=== PATIENT | male | born 1935 | race Caucasian/White ===

== ENCOUNTER 2020-02-03 11:20 | Outpatient (REF) | payer MEDICARE, SELFPAY | END 2020-02-03 11:21 | disposition home or self-care (01) | LOC: HO.LAB 11:20 | PROVIDERS: Visit Provider Internal Medicine | DX: Z20.828 Contact with and (suspected) exposure to other viral communicable diseases (principal) | CPT/HCPCS: C9803; U0003 ==

== ENCOUNTER 2020-09-24 06:06 | Outpatient (REF) | payer MEDICARE, OTHER, SELFPAY ==
[2020-09-24 07:37] LABS: MANUAL DIFF FLAG NO
[2020-09-24 07:40] LABS: Basophils Absolute Auto 0.1 X10*3/uL (0.0-0.2); Basophils Percent Auto 1.2 % (0-2); Eosinophils Absolute Auto 0.4 X10*3/uL (0.0-0.4); Eosinophils Percent Auto 7.3 % (0-4); Hematocrit 37.3 % (42-52); Hemoglobin 12.3 g/dl (14.0-18.0); Lymphocytes Absolute Auto 1.9 X10*3/uL (1.2-4.9); Lymphocytes Percent Auto 36.7 % (20-40); Mean Corpuscular Hemoglobin 32.4 pg (27.0-33.0); Mean Corpuscular Volume 98.2 fL (80-98); Mean Platelet Volume 10.9 fL (9.4-12.4); Monocytes Absolute Auto 0.7 X10*3/uL (0.1-1.2); Monocytes Percent Auto 12.8 % (2-11); Neutrophils Absolute Auto 2.1 X10*3/uL (2.0-8.3); Platelet Count 220 X10*3/uL (160-400); Red Cell Distribution Width 13.4 % (11.0-16.0); White Blood Count 5.1 X10*3/uL (4.8-10.8)
[2020-09-24 08:04] LABS: Alanine Aminotransferase 16 U/L (0-40); Albumin Level 3.8 g/dL (3.5-5.0); Alkaline Phosphatase 77 U/L (39-117); Anion Gap 12 (12-20); Aspartate Amino Transferase 27 U/L (5-37); Bilirubin Total 0.4 mg/dL (0.0-1.0); Blood Urea Nitrogen 20 mg/dL (9-16); Calcium 9.6 mg/dL (8.4-10.2); Carbon Dioxide 26 mmol/L (22-29); Chloride 109 mmol/L (96-108); Cholesterol 186 mg/dL; Estimated Glomerular Filt Rate 43; Glucose Random 91 mg/dL (60-115); HDL Cholesterol 53 mg/dL; LDL Cholesterol Calculated 123 mg/dl; Lipase 24 U/L (8-78); Potassium 4.6 mmol/L (3.3-5.1); Sodium 142 mmol/L (135-145); Total Protein 6.8 g/dL (6.5-8.0); Triglycerides 50 mg/dL
[2020-09-24 08:24] LABS: Glucose Urine UA NEG (NEG); Leukocyte Esterase Urine NEG (NEG); Nitrite Urine NEG (NEG); Specific Gravity - Urine 1.015 (1.005-1.025); Urine Blood NEG (NEG); Urine Ketones NEG (NEG); Urine Protein NEG (NEG-TRACE)
[2020-09-24 08:28] LABS: Prostate Specific Antigen 6.98 ng/mL (<0.05-4.0)
[2020-09-24 08:28] LABS: Appearance Urine CLEAR; Color Urine YELLOW
== END 2020-09-24 06:07 | disposition home or self-care (01) ==
LOC: HO.LAB 06:06
PROVIDERS: PCP Internal Medicine; Visit Provider Internal Medicine
DX: Z12.5 Encounter for screening for malignant neoplasm of prostate (principal); K21.9 Gastro-esophageal reflux disease without esophagitis; R97.20 Elevated prostate specific antigen [PSA]; M06.9 Rheumatoid arthritis, unspecified; K22.70 Barrett's esophagus without dysplasia
CPT/HCPCS: 36415; 80053; 80061; 81003; 83690; 84153; 85025

== ENCOUNTER 2020-10-28 10:39 | Outpatient (REF) | payer MEDICARE, OTHER, SELFPAY ==
[2020-10-28 15:26] LABS: Prostate Specific Antigen 6.78 ng/mL (<0.05-4.0)
== END 2020-10-28 10:40 | disposition home or self-care (01) ==
LOC: HO.10HDL 10:39
PROVIDERS: Visit Provider Urology
DX: Z12.5 Encounter for screening for malignant neoplasm of prostate (principal); C61 Malignant neoplasm of prostate
CPT/HCPCS: 36415; 84153

== ENCOUNTER → 2020-11-05 11:33 | Outpatient (BNVA) | payer MEDICARE, OTHER, SELFPAY | PROVIDERS: PCP Internal Medicine; Referring Provider Internal Medicine; Visit Provider Urology | CPT/HCPCS: Q3014 ==

== ENCOUNTER → 2020-12-17 09:24 | Outpatient (BNVA) | payer MEDICARE, OTHER, SELFPAY | PROVIDERS: PCP Internal Medicine; Visit Provider Physician Assistant | DX: M75.51 Bursitis of right shoulder (principal) | CPT/HCPCS: 20610; 99212; J1040 ==

== ENCOUNTER 2021-01-28 10:19 | Outpatient (REF) | payer MEDICARE, OTHER, SELFPAY ==
[2021-01-28 14:34] LABS: PSA,Total (Free>4and<10) 8.31 ng/mL (0.00-4.00)
== END 2021-01-28 10:20 | disposition home or self-care (01) ==
LOC: HO.10HDL 10:19
PROVIDERS: Visit Provider Urology
DX: Z13.89 Encounter for screening for other disorder (principal)
CPT/HCPCS: 36415; 84153; 84154

== ENCOUNTER → 2021-02-04 11:31 | Outpatient (BNVA) | payer MEDICARE, OTHER, SELFPAY | PROVIDERS: PCP Internal Medicine; Visit Provider Urology | DX: C61 Malignant neoplasm of prostate (principal) | CPT/HCPCS: 99212 ==

== ENCOUNTER → 2021-03-24 10:20 | Outpatient (BNVA) | payer MEDICARE, OTHER, SELFPAY | PROVIDERS: PCP Internal Medicine; Visit Provider Physician Assistant | DX: M75.52 Bursitis of left shoulder (principal) | CPT/HCPCS: 20610; 99212; J1020 ==

== ENCOUNTER 2021-08-15 09:03 | Outpatient (REF) | payer MEDICARE, OTHER, SELFPAY ==
[2021-08-15 11:19] LABS: PSA,Total (Free>4and<10) 1.63 ng/mL (0.00-4.00)
== END 2021-08-15 09:04 | disposition home or self-care (01) ==
LOC: HO.10HDL 09:03
PROVIDERS: Visit Provider Urology
DX: Z12.5 Encounter for screening for malignant neoplasm of prostate (principal); C61 Malignant neoplasm of prostate; N13.8 Other obstructive and reflux uropathy; N40.1 Benign prostatic hyperplasia with lower urinary tract symptoms
CPT/HCPCS: 36415; 84153

== ENCOUNTER → 2021-08-23 13:15 | Outpatient (BNVA) | payer MEDICARE, OTHER, SELFPAY | PROVIDERS: PCP Internal Medicine; Visit Provider Urology | DX: C61 Malignant neoplasm of prostate (principal); Z79.899 Other long term (current) drug therapy | CPT/HCPCS: 99212 ==

== ENCOUNTER → 2021-09-26 12:18 | Outpatient (BNVA) | payer MEDICARE, OTHER, SELFPAY | PROVIDERS: PCP Internal Medicine; Visit Provider Physician Assistant | DX: M75.52 Bursitis of left shoulder (principal) | CPT/HCPCS: 20610; 99212; J1020 ==

== ENCOUNTER 2021-12-02 07:46 | Outpatient (REF) | payer MEDICARE, OTHER, SELFPAY ==
[2021-12-02 10:31] LABS: MANUAL DIFF FLAG NO
[2021-12-02 10:37] LABS: Basophils Absolute Auto 0.1 X10*3/uL (0.0-0.2); Basophils Percent Auto 1.6 % (0-2); Eosinophils Absolute Auto 0.3 X10*3/uL (0.0-0.4); Eosinophils Percent Auto 6.6 % (0-4); Hematocrit 35.9 % (42.0-52.0); Hemoglobin 11.8 g/dl (14.0-18.0); Lymphocytes Absolute Auto 1.3 X10*3/uL (1.2-4.9); Lymphocytes Percent Auto 29.7 % (20-40); Mean Corpuscular HGB Conc 32.9 g/dl (31.0-36.0); Mean Corpuscular Hemoglobin 31.8 pg (27.0-33.0); Mean Corpuscular Volume 96.8 fL (80.0-98.0); Monocytes Absolute Auto 0.5 X10*3/uL (0.1-1.2); Monocytes Percent Auto 12.2 % (2-11); Neutrophils Absolute Auto 2.1 x10*3/uL (2.0-8.3); Neutrophils Percent Auto 49.9 % (45-73); Platelet Count 203 X10*3/uL (160-400); Red Blood Count 3.71 X10*6/uL (4.60-5.80); Red Cell Distribution Width 13.7 % (11.0-16.0); White Blood Count 4.3 X10*3/uL (4.8-10.8)
[2021-12-02 10:55] LABS: Alanine Aminotransferase 18 U/L (0-40); Albumin Level 3.5 g/dL (3.5-5.0); Alkaline Phosphatase 66 U/L (39-117); Anion Gap 12 (12-20); Aspartate Amino Transferase 29 U/L (5-37); Bilirubin Total 0.3 mg/dL (0.0-1.0); Blood Urea Nitrogen 20 mg/dL (9-16); Calcium 8.9 mg/dL (8.4-10.2); Carbon Dioxide 25 mmol/L (22-29); Chloride 108 mmol/L (96-108); Cholesterol 168 mg/dL; Estimated Glomerular Filt Rate 46; Glucose Fasting 88 mg/dL (60-99); HDL Cholesterol 56 mg/dL; LDL Cholesterol Calculated 103 mg/dl; Potassium 4.2 mmol/L (3.3-5.1); Sodium 141 mmol/L (135-145); Total Protein 6.3 g/dL (6.5-8.0); Triglycerides 49 mg/dL
[2021-12-02 11:17] LABS: Free T4 (Free Thyroxine) 1.02 ng/dL (0.71-1.85); Prostate Specific Antigen Scr 2.82 ng/mL (<0.05-4.0); Thyroid Stimulating Hormone 2.28 uIU/mL (0.32-4.0)
== END 2021-12-02 07:47 | disposition home or self-care (01) ==
LOC: HO.10HDL 07:46
PROVIDERS: Visit Provider Internal Medicine
DX: Z12.5 Encounter for screening for malignant neoplasm of prostate (principal); I48.91 Unspecified atrial fibrillation; R60.0 Localized edema; I10 Essential (primary) hypertension; M06.9 Rheumatoid arthritis, unspecified
CPT/HCPCS: 36415; 80053; 80061; 84153; 84439; 84443; 85025

== ENCOUNTER → 2021-12-13 14:42 | Outpatient (BNVA) | payer MEDICARE, OTHER, SELFPAY | PROVIDERS: PCP Internal Medicine; Referring Provider Internal Medicine; Visit Provider Internal Medicine | DX: I48.19 Other persistent atrial fibrillation (principal); M79.89 Other specified soft tissue disorders | CPT/HCPCS: 93005; 99202 ==

== ENCOUNTER → 2021-12-30 12:29 | Outpatient (REF) | payer MEDICARE, OTHER, SELFPAY ==
--- NOTE | 2021-12-30 12:34 | CA_ITS ---
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 The visually estimated ejection fraction is between 60-65%. - The left atrium is moderately dilated. - There is mild calcification of the aortic valve. - There is mild mitral annular calcification. Findings Procedure Information The patient declines contrast. Left Ventricle Normal left ventricular cavity size. There is normal left ventricular wall thickness. The left ventricular systolic function is normal. The visually estimated ejection fraction is between 60-65%. There is no evidence of regional wall motion abnormalities. Diastolic function is indeterminate on the basis of available data. Right Ventricle Normal right ventricular cavity size and systolic function. Atria The left atrium is moderately dilated. The right atrium is normal in size. Aortic Valve There is mild calcification of the aortic valve. There is no aortic valve stenosis. There is no aortic valve regurgitation. Mitral Valve There is mild mitral annular calcification. There is trace mitral valve regurgitation. There is no mitral valve stenosis. Pulmonic Valve The pulmonic valve is likely normal. Tricuspid Valve There is mild tricuspid valve regurgitation. There is no evidence of pulmonary hypertension. Great Vessels The asc aorta is normal in size. Venous The inferior vena cava is mildly dilated and collapses greater than 50% with inspiration. Pericardium/Pleural There is no evidence of pericardial effusion. Prior Study Comparison No significant change compared to prior study dated: 08/16/2016. Measurements 2D Linear Measurements IVSd: 0.88 0.6-0.9/0.6-1.0 cm LVIDd: 4.36 3.9-5.3/4.2-5.9 cm LVIDd Index: 2.26 2.4-3.2/2.2-3.1 cm/m2 LVIDs: 2.90 2.0-3.6 cm LVPWd: 0.94 0.7-1.1 cm LA Diam: 4.00 2.7-3.8/3.0-4.0 cm LAIDs Index: 2.07 1.5-2.3 cm/m2 LV Mass: 158.92 67-162/88-224 g LV Mass Index: 82.34 43-95/49-115 g/m2 LVOT Diam: 2.10 3.0+(-)1.3 cm 2D Systolic Function EF 4C: 57.40 >55% EF 2C: 57.30 >55% EF BiP: 56.20 >55% Mitral Valve MV Pk E: 0.94 MV Decel Time: 246.00 E'Lateral: 9.46 E'Medial: 10.70 E/E' Med: 8.80 E/E' Lat: 9.90 PHT: 72.00 MVA PHT: 3.06 Decel Vernon: 3.81 Aortic Valve AoV Pk Vinayak: 1.39 AoV Mn Vinayak: 0.95 AoV VTI: 0.25 AoV Pk Grad: 8.00 Aov Mn Grad: 4.00 PIA Cont.VTI: 2.64 LVOT LVOT Pk Vinayak: 0.93 LVOT Mn Vinayak: 0.59 LVOT VTI: 0.19 LVOT Pk Grad: 3.00 LVOT Mn Grad: 2.00 LVOT Diam: 2.10 LVOT Area: 3.46 Diastolic Function MV Pk E: 0.94 E'Medial: 10.70 E/E' Med: 8.80 E' Laterial: 9.46 E/E' Lat: 9.90 Right Ventricle TAPSE (mm): 17.40 TVS' Vinayak: 10.20 Tricuspid Valve TR Pk Vinayak: 2.39 TR Pk Grad: 23.00 RA Press: 8.00 RVSP: 31.00 Great Vessels Aorta Sinus of Valsalva: 3.35 2.0-3.[address] [place]: 2.80 1.7-3.4 cm Ao Asc: 3.40 2.1-3.4 cm Updated in Other Vendor System with Status of Final Elia Nelson MD electronically signed on 12/31/2021 9:47:33 AM with status of Final
--- NOTE | 2021-12-30 12:35 | HM_ITS ---
Conclusion: 1. Patient was monitored for total period of 2 days and 19 hours 2. Baseline was atrial fibrillation with average heart of 80 beats per minute with adequate rate control 3. No significant bradycardia or pauses noted 4. Total of 1485 PVCs accounting for 0.46% total beats account for occasional PVCs 5. No patient reported events MTDD
== END ==
LOC: HO.CARD 12:29
PROVIDERS: PCP Internal Medicine; Visit Provider Internal Medicine
DX: I48.19 Other persistent atrial fibrillation (principal)
CPT/HCPCS: 93242; 93306

== ENCOUNTER 2022-01-23 09:14 | Day surgery (SDC) | payer MEDICARE, OTHER, SELFPAY ==
[2022-01-10 15:48] VITALS: BMI 24.3
--- NOTE | 2022-01-17 12:29 | HP_ITS ---
DATE OF SERVICE: 01/23/2022 HISTORY OF PRESENT ILLNESS: Patient is an 86-year-old male who is scheduled for cataract surgery January 23 and February [address] Dwyer. Patient feels well, has no complaints. PRESENT MEDICATIONS: Pepcid 20 mg twice a day, methotrexate 7.5 mg once a week, folic acid 1 mg a day, and Eliquis 2.5 mg p.o. b.i.d. PAST MEDICAL HISTORY: Significant for atrial fibrillation, chronic renal insufficiency. Hypertension. Gastroesophageal reflux disease. Whitaker's esophagus. Rheumatoid arthritis. Intestinal polyps. 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 Skin cancer in the past, osteoarthritis of the hip, back pain, BPH, varicose veins. FAMILY HISTORY: Mother at 84. Father of 101. He has no siblings. SOCIAL HISTORY: He is and has 3 children. REVIEW OF SYSTEMS: No fevers or sweats. Some very mild weight loss 3 pounds recently. No chest pains. Some peripheral edema. No shortness of breath or wheezing. No abdominal pain or heartburn. Some nocturia, osteoarthritis of the hands, rheumatoid arthritis. Appetite has been somewhat diminished lately. Sleeping is disrupted. He recently lost his last January. PHYSICAL EXAMINATION: GENERAL: He is awake and alert, in no distress. VITAL SIGNS: Pulse is 85, respiratory rate is 12, blood pressure is 140/80, oxygen saturation 99% on room air. Weight is 169. HEENT: Pupils equal. TMs clear. Pharynx clear. HEART: Sounds irregularly irregular with atrial fibrillation. LUNGS: Clear. ABDOMEN: Soft and nontender with positive bowel sounds. No HSM. No palpable hernia that I can detect on the right. EXTREMITIES: Some peripheral edema in the legs with venous stasis disease. He has a scab on the left calf from a laceration that is slowly healing. No bruising. NEUROLOGIC: He is awake and alert. ALLERGIES: NO REPORTED ALLERGIES TO MEDICINES. ASSESSMENT AND PLAN: He is medically stable for the proposed procedure. He has already been seen by Dr. Nelson for preop clearance. Also, he will continue the Eliquis and his other medications as directed. I will be available if there are any questions regarding his medical status. MD CYDNEY Arvizu/OBIE / [phone]
--- NOTE | 2022-01-18 09:10 | MHC.SHP ---
Pre-Procedural Eval Section A Date of Service: 01/18/22 The patient is an INPATIENT: No Changes since office visit: No Cold of Flu in the past 2 weeks, No New Medical Problems, No Changes in Medication and No Patient answered all questions The History & Physical has been completed within 30 days and I have reviewed it.: Yes Section B Chief Complaint: Age-related nuclear cataract, right eye Allergies: Allergies Allergy/AdvReac Type Severity Reaction Status Date / Time No Known Allergies Allergy Verified 12/13/21 15:11 Plan Diagnosis/Plan: Unchanged I have reviewed the history and physical and performed a pertinent physical examination on my patient. No changes have occurred unless specified.
[2022-01-23 12:53] VITALS: BP 185/76; PULSE 87; RESP 18; TEMP 36.1; O2SAT 96
[2022-01-23] MEDS: Ketorolac Tromethamine 0.5% Op 5 ML DROPS 1 DROP EYE-RIGHT ×3 (12:56→13:01)
[2022-01-23] MEDS: Phenylephrine HCL 2.5% Oph SoL 2 ML BOTTLE 1 DROP EYE-RIGHT ×3 (12:56→13:00)
[2022-01-23] MEDS: Cyclopentolate 1 % Ophth Sol 2 ML DRPBTL 1 DROP EYE-RIGHT ×3 (12:56→13:00)
[2022-01-23] MEDS: Tetracaine HCl/PF 0.5% Oph Sol 4 ML DROPS 1 DROP EYE-RIGHT (12:56)
[2022-01-23] MEDS: Tropicamide 1 % Ophth Sol 3 ML BTL 1 DROP EYE-RIGHT ×3 (12:56→13:01)
[2022-01-23] MEDS: Lactated Ringers 500 ML 20 ML IVCONT (13:04)
--- NOTE | 2022-01-23 13:29 | HO.ANESPROP2 ---
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 Mother No problems noted. Family history of problems with anesthesia: No Surgical History Surgical History H/O colonoscopy History of esophagogastroduodenoscopy (EGD) Hx of appendectomy History of Problems with Anesthesia: No Social History Social History Are you a primary pet care technician to a significant other at home: No Do you presently have visiting nurse or other home services: No Patient Tobacco Use Status: Former Tobacco user Quit Date: age 41 Tobacco use type: Cigarette Use of substances other than those prescribed or required for medical reasons: No Have you been hit, kicked, punched, or otherwise hurt by someone within the past year? If so, by whom?: No Are you DNR?: No Advance Directives: No (states HCP was but has passed-needs to redo HCP) Advance Directives Information Provided: Yes (as above noted) Advance Directives on File: No Recently lost weight without trying: No Eating poorly because of decreased appetite: No Nutrition Risks: Surgical patient >75years Poor oral hygiene: No (has upper full denture) Current occupational status: retired Current occupation: rt handed Meds Allergies Allergy/AdvReac Type Severity Reaction Status Date / Time No Known Allergies Allergy Verified 12/13/21 15:11 Home Medications Medication Instructions Recorded Confirmed Last Taken Type famotidine 20 mg tablet 20 mg PO BEDTIME 11/05/20 01/11/22 Unknown History methotrexate sodium 2.5 mg tablet 7.5 mg PO QWEEK 11/05/20 01/11/22 Unknown History diphenhydramine HCl 25 mg capsule 25 mg PO BEDTIME PRN Insomnia 01/10/22 01/11/22 Unknown History (Benadryl) melatonin 5 mg tablet 5 mg PO BEDTIME PRN Insomnia 01/10/22 01/11/22 Unknown History Exam Airway Mallampati Class: II TM Dist: >3cm Neck ROM: Full Denture: Upper and Lower Loose/Missing/Broken Teeth: Yes Heart: irreg irreg s1s2 Lungs: cta b/l Assessment and Plan Assessment Anesthesia Assessment: Anesthesia Plan Discussed and Chart Reviewed Final Anesthetic Review Family History of Problems with Anesthesia: No History of Problems with Anesthesia: No NPO: Yes ASA Class: III Final Preanesthetic Review: No Changes in Pt Med Stat, Meds/Allgs Chart Reviewed, Consent Obtained/Reviewed and Anes Risks/Benef Reviewed Patient Risk: Intermediate Procedure Risk: Intermediate Assessment/Block/Sedation in SS: Assess/Block/Sedation-SS Anesthetic Plan Anesthetic Plan: MAC: and Agree w/ Assess. and Plan Disposition: Standard PACU Documented by User: Jany Baugh [facility] Active Problems Active Problems: All Active Problems (Updated 01/10/22 @ 15:47 by Aleisha Mathews RN) Subacromial bursitis of right shoulder joint (Acute) Bursitis of left shoulder (Acute) Persistent atrial fibrillation (Acute) Leg swelling (Acute) Malignant neoplasm of prostate (Acute) Past Medical History Medical History Atrial fibrillation Elevated blood pressure reading Epidermal cyst Erectile dysfunction GERD (gastroesophageal reflux disease) Malignant neoplasm of prostate Nocturia Rheumatoid arthritis 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 Mother No problems noted. Surgical History Surgical History H/O colonoscopy History of esophagogastroduodenoscopy (EGD) Hx of appendectomy Social History Social History Are you a primary pet care technician to a significant other at home: No Do you presently have visiting nurse or other home services: No Patient Tobacco Use Status: Former Tobacco user Quit Date: age 41 Tobacco use type: Cigarette Use of substances other than those prescribed or required for medical reasons: No Have you been hit, kicked, punched, or otherwise hurt by someone within the past year? If so, by whom?: No Are you DNR?: No Advance Directives: No (states HCP was but has passed-needs to redo HCP) Advance Directives Information Provided: Yes (as above noted) Advance Directives on File: No Recently lost weight without trying: No Eating poorly because of decreased appetite: No Nutrition Risks: Surgical patient >75years Poor oral hygiene: No (has upper full denture) Current occupational status: retired Current occupation: rt handed Meds Allergies Allergy/AdvReac Type Severity Reaction Status Date / Time No Known Allergies Allergy Verified 12/13/21 15:11 Active Medications: Current Medications Lactated Ringer's (Lr) 500 mls @ 20 mls/hr IVCONT .Q24H ROBERTA Last Admin: 01/23/22 13:04 Dose: 20 mls/hr Povidone Iodine (Povidone Iodine 5 % Ophth Soln 30 Ml Bottle) 1 appl EYE-RIGHT PREOP PRN PRN Reason: Pre-Op Surgical Implant Prophy Home Medications Medication Instructions Recorded Confirmed Last Taken Type famotidine 20 mg tablet 20 mg PO BEDTIME 11/05/20 01/11/22 Unknown History methotrexate sodium 2.5 mg tablet 7.5 mg PO QWEEK 11/05/20 01/11/22 Unknown History diphenhydramine HCl 25 mg capsule 25 mg PO BEDTIME PRN Insomnia 01/10/22 01/11/22 Unknown History (Benadryl) melatonin 5 mg tablet 5 mg PO BEDTIME PRN Insomnia 01/10/22 01/11/22 Unknown History Exam Exam Date and Time: January 23, 2022 1329 Height,Weight and Vital Signs: Height 5 ft 10 in Weight 77.111 kg Last Vital Signs Temp 97 F 01/23/22 12:53 Pulse 87 01/23/22 12:53 Resp 18 01/23/22 12:53 BP 185/76 H 01/23/22 12:53 Pulse Ox 96 01/23/22 12:53 O2 Del Method 01/23/22 12:53
--- NOTE | 2022-01-23 14:01 | HO.PNOPHT ---
Ophthalmology Procedure Procedure Date of Service: 01/23/22 Ophthalmology Viscoelastic: Healon Duet Dual Pack Pro Ophthalmology Lenses: TECNIS [id number] (22.5) Procedure Notes: PREOPERATIVE DIAGNOSIS: Decreased visual acuity right eye secondary to cataract POSTOPERATIVE DIAGNOSIS: Same PROCEDURE: Right cataract extraction with intraocular lens insertion SURGEON: Peter Dwyer M.D. ANESTHESIA: Topical/MAC ESTIMATED BLOOD LOSS: None COMPLICATIONS: None After obtaining informed consent, the patient was brought to the operating room suite and placed in the supine position. After adequate sedation per anesthesia, topical drops of Tetracaine were given to the right eye. The eye was then prepped and draped in the usual sterile fashion. The operating room microscope was then positioned over the operative eye and a lid speculum placed. A paracentesis was created. Viscoelastic was then instilled into the anterior chamber. A three plane incision was then created temporally, utilizing a 2.85 mm keratome. Capsulotomy forceps were then utilized to create a circular tear capsulotomy. Hydrodissection and hydrodelineation were carried out until adequate mobilization of the nucleus occurred. Phacoemulsification was then utilized to remove the dense central nucleus followed by removal of the cortical material utilizing the automated aspiration irrigation unit. Viscoelastic was instilled into the posterior capsular bag followed by placement of a posterior chamber intraocular lens without difficulty. The residual Viscoelastic was then removed utilizing the automated IA machine. The wound was checked and found to be watertight. The patient tolerated the procedure well and the lid speculum was removed. Intracameral injection of Vigamox 0.1 mL followed by a subtenon injection of Kenalog-40 0.2 mL were administered. The patient will be seen in the a.m.
[2022-01-23 14:40] VITALS: BP 151/79; PULSE 71; RESP 16; TEMP 36.3; O2SAT 98
== END 2022-01-23 14:47 | disposition home or self-care (01) ==
PROVIDERS: PCP Internal Medicine; Visit Provider Ophthalmology
PROC: (CPT 66985; principal; 2022-01-23 11:50)
DX: H25.11 Age-related nuclear cataract, right eye (principal); K21.9 Gastro-esophageal reflux disease without esophagitis; I12.9 Hypertensive chronic kidney disease with stage 1 through stage 4 chronic kidney disease, or unspecified chronic kidney disease; N18.9 Chronic kidney disease, unspecified; I48.91 Unspecified atrial fibrillation; Z79.01 Long term (current) use of anticoagulants; Z79.899 Other long term (current) drug therapy
CPT/HCPCS: 66984; J2250; J3300; J7999; V2632

== ENCOUNTER 2022-02-06 08:09 | Day surgery (SDC) | payer MEDICARE, OTHER, SELFPAY ==
[2022-01-11 08:03] VITALS: BMI 24.3
--- NOTE | 2022-02-02 08:49 | MHC.SHP ---
Pre-Procedural Eval Section A Date of Service: 02/02/22 The patient is an INPATIENT: No Changes since office visit: No Cold of Flu in the past 2 weeks, No New Medical Problems, No Changes in Medication and No Patient answered all questions The History & Physical has been completed within 30 days and I have reviewed it.: Yes Section B Chief Complaint: Age-related nuclear cataract, left eye Allergies: Allergies Allergy/AdvReac Type Severity Reaction Status Date / Time No Known Allergies Allergy Verified 12/13/21 15:11 Plan Diagnosis/Plan: Unchanged I have reviewed the history and physical and performed a pertinent physical examination on my patient. No changes have occurred unless specified.
--- NOTE | 2022-02-03 09:17 | HO.ANESPROP2 ---
Documented by User: Jennifer Wu NP 02/03/22 09:18 HPI - Anesthesia Eval Consult details Narrative: 86yo M for Left?Cataract Extraction IOL Insertion PCP cleared Cardiac cleared Right eye 01/23/22 with MAC: Midaz 1 Eliquis for afib PMFSH Active Problems Active Problems: All Active Problems (Updated 01/10/22 @ 15:47 by Aleisha Mathews RN) Subacromial bursitis of right shoulder joint (Acute) Bursitis of left shoulder (Acute) Persistent atrial fibrillation (Acute) Leg swelling (Acute) Malignant neoplasm of prostate (Acute) Past Medical History Medical History Atrial fibrillation Elevated blood pressure reading Epidermal cyst Erectile dysfunction GERD (gastroesophageal reflux disease) Malignant neoplasm of prostate Nocturia Rheumatoid arthritis 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 Mother No problems noted. Family history of problems with anesthesia: No Surgical History Surgical History H/O colonoscopy History of esophagogastroduodenoscopy (EGD) Hx of appendectomy History of Problems with Anesthesia: No Social History Social History Are you a primary care transitions manager to a significant other at home: No Do you presently have visiting nurse or other home services: No Patient Tobacco Use Status: Former Tobacco user Quit Date: 50 yrs ago Tobacco use type: Cigarette Use of substances other than those prescribed or required for medical reasons: No Have you been hit, kicked, punched, or otherwise hurt by someone within the past year? If so, by whom?: No Are you DNR?: No Advance Directives: No Advance Directives Information Provided: Yes Advance Directives on File: No Recently lost weight without trying: No Eating poorly because of decreased appetite: No Nutrition Risks: Surgical patient >75years Poor oral hygiene: No (has upper full denture) Current occupational status: retired Current occupation: rt handed Meds Allergies Allergy/AdvReac Type Severity Reaction Status Date / Time No Known Allergies Allergy Verified 12/13/21 15:11 Home Medications Medication Instructions Recorded Confirmed Last Taken Type famotidine 20 mg tablet 20 mg PO BEDTIME 11/05/20 01/11/22 Unknown History methotrexate sodium 2.5 mg tablet 7.5 mg PO QWEEK 11/05/20 01/11/22 Unknown History diphenhydramine HCl 25 mg capsule 25 mg PO BEDTIME PRN Insomnia 01/10/22 01/11/22 Unknown History (Benadryl) melatonin 5 mg tablet 5 mg PO BEDTIME PRN Insomnia 01/10/22 01/11/22 Unknown History Exam Exam Date and Time: February 03, [id number] Height,Weight and Vital Signs: Height 5 ft 10 in Weight 77.111 kg Assessment and Plan Assessment Anesthesia Assessment: Chart Reviewed Final Anesthetic Review Family History of Problems with Anesthesia: No History of Problems with Anesthesia: No Documented by User: Jany Baugh MD 02/06/22 10:35 [facility] Past Medical History Medical History Atrial fibrillation Elevated blood pressure reading Epidermal cyst Erectile dysfunction GERD (gastroesophageal reflux disease) Malignant neoplasm of prostate Nocturia Rheumatoid arthritis 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 Mother No problems noted. Surgical History Surgical History H/O colonoscopy History of esophagogastroduodenoscopy (EGD) Hx of appendectomy Social History Social History Are you a primary care transitions manager to a significant other at home: No Do you presently have visiting nurse or other home services: No Patient Tobacco Use Status: Former Tobacco user Quit Date: 50 yrs ago Tobacco use type: Cigarette Use of substances other than those prescribed or required for medical reasons: No Have you been hit, kicked, punched, or otherwise hurt by someone within the past year? If so, by whom?: No Are you DNR?: No Advance Directives: No Advance Directives Information Provided: Yes Advance Directives on File: No Recently lost weight without trying: No Eating poorly because of decreased appetite: No Nutrition Risks: Surgical patient >75years Poor oral hygiene: No (has upper full denture) Current occupational status: retired Current occupation: rt handed Meds Allergies Allergy/AdvReac Type Severity Reaction Status Date / Time No Known Allergies Allergy Verified 12/13/21 15:11 Home Medications Medication Instructions Recorded Confirmed Last Taken Type famotidine 20 mg tablet 20 mg PO BEDTIME 11/05/20 01/11/22 Unknown History methotrexate sodium 2.5 mg tablet 7.5 mg PO QWEEK 11/05/20 01/11/22 Unknown History diphenhydramine HCl 25 mg capsule 25 mg PO BEDTIME PRN Insomnia 01/10/22 01/11/22 Unknown History (Benadryl) melatonin 5 mg tablet 5 mg PO BEDTIME PRN Insomnia 01/10/22 01/11/22 Unknown History Exam Airway Mallampati Class: II TM Dist: >3cm Neck ROM: Full Denture: Upper Heart: irreg Lungs: cta Assessment and Plan Assessment Anesthesia Assessment: Anesthesia Plan Discussed and Chart Reviewed Final Anesthetic Review NPO: Yes ASA Class: III Final Preanesthetic Review: No Changes in Pt Med Stat, Meds/Allgs Chart Reviewed and Consent Obtained/Reviewed Patient Risk: Intermediate Procedure Risk: Intermediate Anesthetic Plan Anesthetic Plan: MAC: Disposition: Standard PACU
[2022-02-06 10:07] VITALS: BP 167/90; PULSE 80; RESP 17; TEMP 36.5; O2SAT 99
[2022-02-06] MEDS: Tetracaine HCl/PF 0.5% Oph Sol 4 ML DROPS 1 DROP EYE-LEFT (10:15)
[2022-02-06] MEDS: Cyclopentolate 1 % Ophth Sol 2 ML DRPBTL 1 DROP EYE-LEFT ×3 (10:18→10:29)
[2022-02-06] MEDS: Tropicamide 1 % Ophth Sol 3 ML BTL 1 DROP EYE-LEFT ×3 (10:19→10:32)
[2022-02-06] MEDS: Ketorolac Tromethamine 0.5% Op 5 ML DROPS 1 DROP EYE-LEFT ×2 (10:21→10:34)
[2022-02-06] MEDS: Phenylephrine HCL 2.5% Oph SoL 2 ML BOTTLE 1 DROP EYE-LEFT ×3 (10:22→10:36)
[2022-02-06] MEDS: Lactated Ringers 500 ML 50 ML IV (10:23)
--- NOTE | 2022-02-06 11:18 | HO.PNOPHT ---
Ophthalmology Procedure Procedure Date of Service: 02/06/22 Ophthalmology Viscoelastic: Healon Duet Dual Pack Pro Ophthalmology Lenses: TECNIS CL1124 (22.5) Procedure Notes: PREOPERATIVE DIAGNOSIS: Decreased visual acuity left eye secondary to cataract POSTOPERATIVE DIAGNOSIS: Same PROCEDURE: Left cataract extraction with intraocular lens insertion SURGEON: Peter Dwyer M.D. ANESTHESIA: Topical/MAC ESTIMATED BLOOD LOSS: None COMPLICATIONS: None After obtaining informed consent, the patient was brought to the operation room suite and placed in the supine position. After adequate sedation per anesthesia, topical drops of Tetracaine were given to the left eye. The eye was then prepped and draped in the usual sterile fashion. The operating room microscope was then positioned over the operative eye and a lid speculum placed. A paracentesis was created. Viscoelastic was then instilled into the anterior chamber. A three plane incision was then created temporally, utilizing a 2.85 mm keratome. Capsulotomy forceps were then utilized to create a circular tear capsulotomy. Hydrodissection and hydrodelineation were carried out until adequate mobilization of the nucleus occurred. Phacoemulsification was then utilized to remove the dense central nucleus followed by removal of the cortical material utilizing the automated aspiration irrigation unit. Viscoat elastic was instilled into the posterior capsular bag followed by placement of a posterior chamber intraocular lens without difficulty. The residual Viscoat elastic was then removed utilizing the automated IA machine. The wound was check and found to be watertight. The patient tolerated the procedure well and the lid speculum was removed. Intracameral injection of Vigamox 0.1 mL followed by a subtenon injection of Kenalog-40 0.2 mL were administered. The patient will be seen in the a.m.
[2022-02-06 11:38] VITALS: BP 145/76; PULSE 72; RESP 12; TEMP 36.7; O2SAT 100
== END 2022-02-06 11:53 | disposition home or self-care (01) ==
PROVIDERS: PCP Internal Medicine; Visit Provider Ophthalmology
PROC: (CPT 66985; principal; 2022-02-06 11:00)
DX: H25.12 Age-related nuclear cataract, left eye (principal); I48.19 Other persistent atrial fibrillation; M06.9 Rheumatoid arthritis, unspecified; Z79.01 Long term (current) use of anticoagulants; Z79.899 Other long term (current) drug therapy
CPT/HCPCS: 66984; J2250; J3301; J7999; V2632

== ENCOUNTER 2022-02-08 09:10 | Outpatient (REF) | payer MEDICARE, OTHER, SELFPAY ==
[2022-02-08 11:33] LABS: Prostate Specific Antigen 5.29 ng/mL (<0.05-4.0)
== END 2022-02-08 09:11 | disposition home or self-care (01) ==
LOC: HO.10HDL 09:10
PROVIDERS: Visit Provider Urology
DX: Z12.5 Encounter for screening for malignant neoplasm of prostate (principal); C61 Malignant neoplasm of prostate
CPT/HCPCS: 36415; 84153

== ENCOUNTER → 2022-02-13 14:17 | Outpatient (BNVA) | payer MEDICARE, OTHER, SELFPAY | PROVIDERS: PCP Internal Medicine; Referring Provider Internal Medicine; Visit Provider Internal Medicine | DX: I48.19 Other persistent atrial fibrillation (principal); M79.89 Other specified soft tissue disorders | CPT/HCPCS: 99212 ==

== ENCOUNTER → 2022-02-14 10:41 | Outpatient (BNVA) | payer MEDICARE, OTHER, SELFPAY | PROVIDERS: PCP Internal Medicine; Visit Provider Urology | DX: C61 Malignant neoplasm of prostate (principal) | CPT/HCPCS: 99212 ==

== ENCOUNTER 2022-02-17 07:57 | Outpatient (REF) | payer MEDICARE, OTHER, SELFPAY ==
--- NOTE | ~2022-02-17 | XR_ITS ---
EXAMINATION: XR SHOULDER, LEFT CLINICAL INFORMATION: Pain left shoulder COMPARISON: None TECHNIQUE: AP external rotation, Grashey, scapular Y, and axillary views of the left shoulder. FINDINGS: The bones and soft tissues are normal. No fracture. Glenohumeral and acromioclavicular alignment is anatomic with normal joint space. No abnormal soft tissue calcifications. XR/XR shoulder LT min 2V IMPRESSION: Normal left shoulder.
== END 2022-02-17 07:58 | disposition home or self-care (01) ==
LOC: HO.HOSX 07:57
PROVIDERS: Visit Provider Physician Assistant
DX: M75.81 Other shoulder lesions, right shoulder (principal); M75.82 Other shoulder lesions, left shoulder
CPT/HCPCS: 20610; 73030; 99212; J1040

== ENCOUNTER → 2022-07-06 13:46 | Outpatient (BNVA) | payer MEDICARE, OTHER, SELFPAY | PROVIDERS: PCP Internal Medicine; Visit Provider Physician Assistant | DX: M75.52 Bursitis of left shoulder (principal) | CPT/HCPCS: 20610; 99212; J1040 ==

== ENCOUNTER → 2022-08-16 12:51 | Outpatient (BNVA) | payer MEDICARE, OTHER, SELFPAY | PROVIDERS: PCP Internal Medicine; Referring Provider Internal Medicine; Visit Provider Internal Medicine | DX: I48.19 Other persistent atrial fibrillation (principal); M79.89 Other specified soft tissue disorders | CPT/HCPCS: 99212 ==

== ENCOUNTER 2022-08-18 09:28 | Outpatient (REF) | payer MEDICARE, OTHER, SELFPAY ==
[2022-08-18 10:52] LABS: Hematocrit 34.9 % (42.0-52.0); Hemoglobin 11.5 g/dl (14.0-18.0); Mean Corpuscular Hemoglobin 32.1 pg (27.0-33.0); Mean Corpuscular Volume 97.5 fL (80.0-98.0); Mean Platelet Volume 10.8 fL (9.4-12.4); Platelet Count 185 X10*3/uL (160-400); Red Blood Count 3.58 X10*6/uL (4.60-5.80); Red Cell Distribution Width 15.7 % (11.0-16.0)
[2022-08-18 12:53] LABS: Anion Gap 10 (12-20); Blood Urea Nitrogen 18 mg/dL (9-16); Calcium 9.3 mg/dL (8.4-10.2); Carbon Dioxide 25 mmol/L (22-29); Chloride 106 mmol/L (96-108); Estimated Glomerular Filt Rate 45; Glucose Random 94 mg/dL (60-115); Potassium 3.9 mmol/L (3.3-5.1); Sodium 137 mmol/L (135-145)
[2022-08-18 12:57] LABS: PSA,Total (Free>4and<10) 1.75 ng/mL (0.00-4.00)
== END 2022-08-18 09:29 | disposition home or self-care (01) ==
LOC: HO.10HDL 09:28
PROVIDERS: Urology; Absent Provider Internal Medicine Medical Oncology; Visit Provider Internal Medicine
DX: Z12.5 Encounter for screening for malignant neoplasm of prostate (principal); I48.19 Other persistent atrial fibrillation; C61 Malignant neoplasm of prostate
CPT/HCPCS: 36415; 80048; 84153; 85027

== ENCOUNTER → 2022-08-24 11:32 | Outpatient (BNVA) | payer MEDICARE, OTHER, SELFPAY | PROVIDERS: Visit Provider Urology | DX: C61 Malignant neoplasm of prostate (principal) | CPT/HCPCS: 99212 ==

== ENCOUNTER 2022-10-13 10:47 | Outpatient (REF) | payer MEDICARE, OTHER, SELFPAY ==
[2022-10-13 13:14] LABS: MANUAL DIFF FLAG NO
[2022-10-13 13:30] LABS: Basophils Absolute Auto 0.1 X10*3/uL (0.0-0.2); Basophils Percent Auto 1.4 % (0-2); Eosinophils Absolute Auto 0.3 X10*3/uL (0.0-0.4); Eosinophils Percent Auto 6.6 % (0-4); Hematocrit 35.2 % (42.0-52.0); Hemoglobin 11.3 g/dl (14.0-18.0); Imm Gran Abs Auto 0.02 X10*3/uL (0.00-0.03); Imm Gran Pct Auto 0.4 % (0.0-0.4); Lymphocytes Absolute Auto 1.1 X10*3/uL (1.2-4.9); Lymphocytes Percent Auto 21.5 % (20-40); Mean Corpuscular HGB Conc 32.1 g/dl (31.0-36.0); Mean Corpuscular Hemoglobin 32.2 pg (27.0-33.0); Mean Corpuscular Volume 100.3 fL (80.0-98.0); Mean Platelet Volume 11.5 fL (9.4-12.4); Monocytes Absolute Auto 0.8 X10*3/uL (0.1-1.2); Neutrophils Absolute Auto 2.8 x10*3/uL (2.0-8.3); Neutrophils Percent Auto 55.1 % (45-73); Platelet Count 206 X10*3/uL (160-400); Red Blood Count 3.51 X10*6/uL (4.60-5.80); Red Cell Distribution Width 14.1 % (11.0-16.0); White Blood Count 5.1 X10*3/uL (4.8-10.8)
[2022-10-13 13:46] LABS: Alanine Aminotransferase 26 U/L (0-40); Albumin Level 3.4 g/dL (3.5-5.0); Alkaline Phosphatase 72 U/L (39-117); Anion Gap 9 (12-20); Aspartate Amino Transferase 40 U/L (5-37); Bilirubin Total 0.5 mg/dL (0.0-1.0); Blood Urea Nitrogen 19 mg/dL (9-16); Calcium 9.6 mg/dL (8.4-10.2); Carbon Dioxide 27 mmol/L (22-29); Chloride 107 mmol/L (96-108); Estimated Glomerular Filt Rate 47; Glucose Random 95 mg/dL (60-115); Iron 66 mcg/dL (45-160); Percent Iron Saturation 27 % (15-50); Potassium 4.4 mmol/L (3.3-5.1); Sodium 139 mmol/L (135-145); Total Iron Binding Capacity 245 mcg/dL (228-428); Total Protein 6.5 g/dL (6.5-8.0); Unsaturated Iron Binding 179 ug/dL
== END 2022-10-13 10:48 | disposition home or self-care (01) ==
LOC: HO.10HDL 10:47
PROVIDERS: Visit Provider Internal Medicine
DX: I48.91 Unspecified atrial fibrillation (principal); D64.9 Anemia, unspecified; I12.9 Hypertensive chronic kidney disease with stage 1 through stage 4 chronic kidney disease, or unspecified chronic kidney disease; N18.9 Chronic kidney disease, unspecified; M06.9 Rheumatoid arthritis, unspecified
CPT/HCPCS: 36415; 80053; 83540; 85025

== ENCOUNTER 2022-11-06 09:06 | Outpatient (AMB) | payer MEDICARE, OTHER, SELFPAY ==
--- NOTE | 2022-11-06 09:08 | A.OFFVIS_ITS ---
Intake Vital Signs 11/06/22 09:12 Height 5 ft 10 in Weight 163 lb BMI 23.4 Intake Visit Reasons: ov- Bursitis of left shoulder last inj 07/06/22 Intake Note: Matthew is an 88 year old male who presents today for a follow up of left shoulder, last injection on 07/06/22. Patient reports left shoulder injection provided him relief. States bilateral shoulder pain and would like to repeat injection. Allergies No Known Allergies Allergy (Verified 11/06/22 09:12) HPI ov- Bursitis of left shoulder last inj 07/06/22 HPI Details 86-year-old male who returns to the [facility] today for a follow-up of left shoulder. He had his last injection on 07/06/22 which provided him relief. He states he has bilateral shoulder pain would like to repeat the injection. 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 Mother No problems noted. Social History Are you a primary childcare center administrator to a significant other at home: No Do you presently have visiting nurse or other home services: No Patient Tobacco Use Status: Former Tobacco user Quit Date: age 41 Tobacco use type: Cigarette Current occupational status: retired Current occupation: rt handed Review of Systems Const All systems reviewed & are unremarkable except as noted in HPI and below Physical Exam Vital Signs: BMI result Body Mass Index 23.4 Extrem Other: Bilateral shoulder normal to inspection. Tenderness over the bicipital groove and along the deltoid region of the shoulder. Forward flexion to 175, external rotation to 90, internal rotation to S1. 5/5 RTC strength. Negative Olson and cross body abduction. NVI. Office Procedures Joint Injection/Drain Joint Injection/Drain Primary Site: right shoulder Secondary Site: left shoulder Prep: site was prepped using aseptic technique, ethochloride spray was applied and injection warnings given Injected: 40 mg of, DepoMedrol, with 8 mL of, 1% plain lidocaine and in the subcromial space Approach Used: posterolateral Procedure: The patient tolerated the procedure well and there was some relief with the local anesthesia Coding 07505 - Glenohumeral/Tronchanteric Bursa/Intraarticular Procedure code (CPT) selection complete Results Reviewed Results Reviewed: 11/06/22 09:12 Lidocaine HCl 2 % MPF [Xylocaine 2 % MPF] 5 ml .ROUTE .STK-MED ONE methylPREDNISolone acetate [DEPO-MedroL] 40 mg .ROUTE .STK-MED ONE Assessment & Plan Assessment & Plan (1) Tendonitis of both rotator cuffs: Code(s): M75.81 - Other shoulder lesions, right shoulder; M75.82 - Other shoulder lesions, left shoulder Plan We discussed options today which include steroid injection. They did consent to move forward with the bilateral shoulder injection, which was tolerated well. I recommended rest, ice and elevation and OTC anti-inflammatories PRN for discomfort. If symptoms persist or worsens over the next 6-8 weeks, patient will contact the office, otherwise follow-up as needed. Patient Instructions: Scribed for Cyndi Núñez PA-C, by Vlad Shepherd medical clinic manager, on 11/06/2022 at 9:15 AM Cyndi MARTE PA-C, have personally reviewed and agree with the information entered by the scribe. Coding Level of Care Code Est Pt Level 3 (87834) Diagnoses Tendonitis of both rotator cuffs M75.81; M75.82 CPT Codes Coding - Joint 7: 02667 - Glenohumeral/Tronchanteric Bursa/Intraarticular ([id number])
[2022-11-06 09:12] VITALS: BMI 23.4
== END 2022-11-06 09:37 | disposition home or self-care (01) ==
PROVIDERS: PCP Internal Medicine; Visit Provider Physician Assistant
DX: M75.81 Other shoulder lesions, right shoulder (principal); M75.82 Other shoulder lesions, left shoulder
CPT/HCPCS: 20610

== ENCOUNTER → 2022-11-06 09:06 | Outpatient (BNVA) | payer MEDICARE, OTHER, SELFPAY | PROVIDERS: PCP Internal Medicine; Visit Provider Physician Assistant | DX: M75.81 Other shoulder lesions, right shoulder (principal); M75.82 Other shoulder lesions, left shoulder | CPT/HCPCS: 20610; 99212; J1020 ==

== ENCOUNTER 2022-11-07 16:10 | Inpatient (IN) | payer MEDICARE, OTHER, SELFPAY ==
--- NOTE | ~2022-11-07 | CT_ITS ---
EXAMINATION: CT HEAD WITHOUT CONTRAST CT CERVICAL SPINE WITHOUT CONTRAST CLINICAL INFORMATION: Reason for Exam head strike on AC COMPARISON: None. TECHNIQUE: Imaging was performed from the skull base to vertex without intravenous administration of contrast. In addition, helical noncontrast CT imaging was acquired through the cervical spine and source images were reviewed along with axial reconstructions and sagittal and coronal MPRs. This CT examination was performed using dose optimization techniques as appropriate, variously including the following: *Automated exposure control. *Adjustment of mA and/or kV according to patient size (this includes techniques or standardized protocols for targeted exams where dose is matched to indication/reason for exam; i.e. extremities or head). *Use of iterative reconstruction technique. Total exam dose-length product 708 mGy-cm FINDINGS: Technically limited study due to motion artifacts. HEAD: No intracranial mass, hemorrhage, or midline shift is visualized. The ventricles and sulci are age-appropriate. No extra-axial collections are identified. The paranasal sinuses and mastoid air cells are well aerated. CERVICAL SPINE: There is no evidence of acute cervical spine fracture. Vertebral bodies remain normal in height, and alignment is anatomic. No prevertebral or paravertebral soft tissue abnormality is identified. Marked diffuse osteopenia and multilevel moderate degenerative spondylosis and facet joint arthritic changes are present bilaterally. Subchondral radiolucency along the anterior aspect of the junction between the odontoid process and the body of C2 vertebral body likely represent degenerative cyst, best seen on the sagittal projection (29:18). Limited assessment of the lung apices is unremarkable. CT/CT cervical spine wo IV con IMPRESSION: Limited study due to presence of motion artifacts. 1. No acute intracranial pathology. 2. No CT evidence of acute cervical spine fracture or traumatic subluxation.
--- NOTE | ~2022-11-07 | XR_ITS ---
EXAMINATION: Pelvis, right femur and right hip x-rays CLINICAL INFORMATION: Pain COMPARISON: Previous right hip x-ray from 2016 TECHNIQUE: One view of the pelvis, 2 views of the right hip and 2 views of the right femur FINDINGS: Bones the pelvis are normal. There is a degenerative changes with joint with small osteophytes and chondrocalcinosis at both hip joints. Sacroiliac joints and pubic symphysis are normal. Degenerative changes of the visualized lower lumbar spine. Minimally displaced right femoral intertrochanteric fracture. Mild arthritis at the right hip joint with small osteophytes. Chondrocalcinosis. Soft tissues are unremarkable. Right femur: Diffuse periosteal reaction of the femoral shaft. Right femoral intertrochanteric fracture. Osteopenia. Mild degenerative changes at the patellofemoral joint. No knee joint effusion. Atherosclerotic disease. XR/XR femur RT 2V IMPRESSION: Minimally displaced right femoral intertrochanteric fracture.
--- NOTE | ~2022-11-07 | FL_ITS ---
EXAMINATION: FL GUIDANCE IN OR CLINICAL INFORMATION: Right hip fracture. COMPARISON: None available. TECHNIQUE: Fluoroscopy Supervised By: Bill Vidal MD. Fluoroscopy Time: 0.5 minutes. Cumulative Dose: 15.7 mGy. DAP: 0.274 mGym2. Images: 5. FINDINGS: 5 images demonstrate an intramedullary ivis and screw in the right hip. Please see Dr. Bill Vidal's procedure note for full details. FL/FL guidance in OR IMPRESSION: Fluoroscopy provided for open reduction internal fixation of right hip fracture.
--- NOTE | ~2022-11-07 | XR_ITS ---
EXAMINATION: Pelvis, right femur and right hip x-rays CLINICAL INFORMATION: Pain COMPARISON: Previous right hip x-ray from 2016 TECHNIQUE: One view of the pelvis, 2 views of the right hip and 2 views of the right femur FINDINGS: Bones the pelvis are normal. There is a degenerative changes with joint with small osteophytes and chondrocalcinosis at both hip joints. Sacroiliac joints and pubic symphysis are normal. Degenerative changes of the visualized lower lumbar spine. Minimally displaced right femoral intertrochanteric fracture. Mild arthritis at the right hip joint with small osteophytes. Chondrocalcinosis. Soft tissues are unremarkable. Right femur: Diffuse periosteal reaction of the femoral shaft. Right femoral intertrochanteric fracture. Osteopenia. Mild degenerative changes at the patellofemoral joint. No knee joint effusion. Atherosclerotic disease. XR/XR hip RT w [id number] IMPRESSION: Minimally displaced right femoral intertrochanteric fracture.
--- NOTE | 2022-11-07 16:28 | ED_ITS ---
HPI - General Adult General Chief complaint: Fall Stated complaint: Witnessed fall Time Seen by Provider: 11/07/22 16:22 Source: patient, family, EMS and RN notes reviewed Mode of arrival: EMS Limitations: no limitations History of Present Illness HPI narrative: This is a 87-year-old male, with a past medical history of atrial fibrillation on Eliquis, presenting to the emergency department via EMS with complaints of mechanical fall which occurred today. Patient states that while he was playing basketball at the [employer] [facility], celebrating his birthday, he tripped over his own feet and fell onto his right side. Denies hitting his head or loss of consciousness. Denies dizziness, chest pain or shortness of breath prior to the fall. This fall was witnessed by his family, and saw him tripped over his own feet. Patient reports that he has been unable to bear weight on his right leg secondary to pain and weakness. He denies any headaches, dizziness, blurred vision, chest pain, shortness breath, abdominal pain, nausea, vomiting or diarrhea. Denies hitting his head or loss of consciousness. Reports the only pain he is experiencing is the pain in his anterior right thigh/groin. Denies any other complaints or concerns at this time. MD complaint: Mechanical fall, right hip right/ femur pain Onset (ago): minute(s) Location: lower extremity Radiation: non-radiation Severity: moderate Quality: aching Pain Consistency: constant Relieving factors: none Exacerbating factors: none Associated symptoms: denies other symptoms Treatments prior to arrival: none Related Data Home Medications Medication Instructions Recorded Confirmed famotidine 20 mg tablet 20 mg PO BEDTIME 11/05/20 11/07/22 methotrexate sodium 2.5 mg tablet 10 mg PO SA 11/05/20 11/07/22 melatonin 5 mg tablet 5 mg PO BEDTIME PRN Insomnia 01/10/22 11/07/22 folic acid 1 mg tablet 1 mg PO DAILY 08/16/22 11/07/22 multivitamin 1 tab PO DAILY 11/07/22 11/07/22 Previous Rx's Medication Instructions Recorded finasteride 5 mg tablet 5 mg PO DAILY 90 days #90 tabs 02/14/22 apixaban 2.5 mg tablet (Eliquis) 2.5 mg PO BID 90 days #180 tabs 02/15/22 oxycodone 5 mg tablet 5 mg PO Q6H PRN pain (scale score 11/13/22 7-10) #20 tabs Allergies Allergy/AdvReac Type Severity Reaction Status Date / Time No Known Allergies Allergy Verified 11/10/22 12:43 Review of Systems 2 Review of Systems: Yes all other systems are reviewed and are negative Constitutional: Constitutional: Reports as per [facility] Past Medical History Attestation statement: The following information was validated with the patient. 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 Mother No problems noted. Social History Social History Household Members: None Housing: House Are you a primary healthcare sales representative to a significant other at home: No Do you presently have visiting nurse or other home services: No Patient Tobacco Use Status: Former Tobacco user Quit Date: 60 years ago Tobacco use type: Cigarette service: Yes Current occupational status: retired Current occupation: rt handed Physical Exam ED Vital Signs: Vital Signs - 24 hr 11/07/22 16:41 Temperature 97.2 F Pulse Rate 88 Respiratory Rate 16 Blood Pressure 163/87 H Pulse Oximetry 97 Oxygen Delivery Method Room Air BMI result Body Mass Index 24.5 Const General: cooperative, comfortable and no acute distress Orientation/consciousness: patient oriented x3 Limitations: no limitations HENMT Head: Yes normal to inspection, Yes normocephalic and Yes atraumatic Ears: hearing grossly normal bilaterally General nose exam: Normal external nose present Face and sinus: Yes normal facial exam Mouth: Normal oral and palatal mucosa present, oropharynx normal and moist mucous membranes Throat: Yes posterior oropharynx normal Eyes General: appearance normal, both eyes and all related structures Eyelids: Yes eyelids normal Conjunctivae: conjunctivae normal Sclerae: sclerae normal Pupils: Equal, round and reactive pupils present EOM: EOMs intact bilaterally Neck Neck: Yes normal visual inspection, Yes full ROM and Yes no lymphadenopathy Lymphatic: no lymphadenopathy noted Chest Chest palpation & inspection: normal inspection of the chest Resp Effort & Inspection: normal respiratory effort and able to speak in complete sentences Auscultation: clear to auscultation bilaterally, no crackles, no rales, no rhonchi and no wheezes Cardio Other: Irregularly irregular rate and rhythm Heart sounds: S1 normal heart sound present and S2 normal heart sound present GI Inspection: Yes normal to inspection Skin General skin exam: no rashes or lesions noted Trauma: no lacerations or abrasions Wounds: no wounds Neuro General: patient oriented x3 and moves all extremities Cranial nerves: Yes Equal, round and reactive pupils present Extrem Other: Right hip is nontender, tenderness palpation along the anterior right thigh. No obvious bony deformity or swelling. No ecchymosis noted. Right leg in flexed position, unable to bend and straighten leg. Unable to bear weight. General: Yes normal to inspection Right upper extremity: normal to inspection Left upper extremity: normal to inspection Right lower extremity: normal to inspection Left lower extremity: normal to inspection Course Reevaluation(s) Reevaluation #1: Patient endorsing worsening pain, medicated with oxycodone 2.5 mg by mouth. X- rays still pending. Sign out given to my colleague, Chadd Patrick pending CT head, neck and hip/femur xrays. Time: 19:14 Medications Administered Discontinued Medications Generic Name Dose Route Start Last Admin Trade Name Freq PRN Reason Stop Dose Admin Acetaminophen 975 mg 11/07/22 16:42 11/07/22 17:04 Acetaminophen 325 Mg Tablet PO 11/07/22 16:43 975 mg ONCE ONE Administration Acetaminophen 650 mg 11/07/22 21:00 11/12/22 20:06 Acetaminophen 325 Mg Tablet PO 650 mg Q6H PRN Administration Pain, Mild (Pain Scale 1-3) Apixaban 2.5 mg 11/11/22 09:00 11/13/22 07:43 Apixaban 2.5 Mg Tablet PO 2.5 mg BID ROBERTA Administration Famotidine 20 mg 11/07/22 22:10 11/08/22 23:39 Famotidine 20 Mg Tablet PO Not Given BEDTIME ROBERTA Famotidine 20 mg 11/09/22 15:05 11/13/22 07:43 Famotidine 20 Mg Tablet PO 20 mg BID ROBERTA Administration Finasteride 5 mg 11/08/22 09:00 11/13/22 07:43 Finasteride 5 Mg Tablet PO 5 mg DAILY ROBERTA Administration Folic Acid 1 mg 11/08/22 09:00 11/13/22 07:43 Folic Acid 1 Mg Tablet PO 1 mg DAILY ROBERTA Administration Hydromorphone HCl 0.5 mg 11/08/22 00:55 11/08/22 01:08 Hydromorphone Hcl 0.5 Mg/0.5 Ml Syringe IVPUSH 11/08/22 00:56 0.5 mg ONCE ONE Administration Protocol Sodium Chloride 1,000 mls @ 80 mls/hr 11/08/22 18:15 11/09/22 08:00 Sodium Chloride 0.45 % IVCONT 11/09/22 06:14 Infused .[id number] ROBERTA Infusion Lactated Ringer's 1,000 mls @ 80 mls/hr 11/09/22 08:00 11/11/22 11:28 Lr IVCONT Infused .[id number] ROBERTA Infusion Acetaminophen 1,000 mg in 100 mls @ 400 mls/hr 11/10/22 13:04 11/10/22 15:51 Ofirmev IV 11/10/22 13:18 Infused ONCE ONE Infusion Lactated Ringer's 1,000 mls @ 50 mls/hr 11/10/22 13:15 11/12/22 11:47 Lr IVCONT Infused .Q20H ROBERTA Infusion Cefazolin Sodium/Dextrose 2 gm in 50 mls @ 100 mls/hr 11/10/22 13:25 11/10/22 15:50 Ancef IV 11/10/22 13:54 Not Given PREOP ONE Melatonin 6 mg 11/07/22 21:00 11/12/22 22:53 Melatonin 3 Mg Tablet PO 6 mg BEDTIME PRN Administration Insomnia Methotrexate 10 mg 11/11/22 07:15 11/11/22 08:40 Methotrexate Sodium 2.5 Mg Tablet PO 10 mg SA ROBERTA Administration Morphine Sulfate 4 mg 11/07/22 20:40 11/07/22 21:37 Morphine Sulfate 4 Mg/Ml Cartridge IVPUSH 11/07/22 20:41 4 mg ONCE ONE Administration Protocol Morphine Sulfate 4 mg 11/07/22 21:00 11/12/22 18:23 Morphine Sulfate 4 Mg/Ml Cartridge IVPUSH 4 mg Q4H PRN Administration Pain, Severe (Pain Scale 7-10) Protocol Morphine Sulfate 2 mg 11/12/22 22:32 11/13/22 12:02 Morphine Sulfate 2 Mg/Ml Cartridge IVPUSH 2 mg Q4H PRN Administration Pain, Severe (Pain Scale 7-10) Protocol Multivitamins/Vitamin C 1 tab 11/08/22 09:00 11/13/22 07:43 Multivitamin Tablet PO 1 tab DAILY ROBERTA Administration Ondansetron HCl 4 mg 11/07/22 21:00 11/09/22 18:35 Ondansetron Hcl 4 Mg/2 Ml Vial IVPUSH 4 mg Q8H PRN Administration Nausea and Vomiting Oxycodone HCl 2.5 mg 11/07/22 19:11 11/07/22 19:21 Oxycodone Hcl Immed Release 5 Mg Tablet PO 11/07/22 19:12 2.5 mg ONCE ONE Administration Oxycodone HCl 5 mg 11/10/22 14:59 11/10/22 15:07 Oxycodone Hcl Immed Release 5 Mg Tablet PO 5 mg ONCE PRN Administration Pain, Severe (Pain Scale 7-10) Promethazine HCl 25 mg 11/08/22 07:56 11/08/22 11:39 Promethazine Hcl 25 Mg Tablet PO 25 mg Q6H PRN Administration Nausea Sodium Chloride 3 ml 11/08/22 00:00 11/13/22 07:44 0.9 % Sodium Chloride Flush 3 Ml Syringe IVFLUSH 3 ml QSHIFT [facility] Administration Medical Decision Making Medical Decision Making [facility] Narrative: This is a 87-year-old male, with a past medical history of atrial fibrillation on Eliquis, presenting to the emergency department with complaints of right femur/right hip pain x 30 minutes. Patient was playing basketball at the [employer] [facility] when suddenly he tripped over his own feet and landed onto his right side. He states that he immediately felt pain in his right hip and right femur. He states that he has been unable to bear weight on his leg. He is unable to straighten his right leg. Denies hitting his head or loss of consciousness. Differential diagnoses included fracture, dislocation contusion, sprain strain, ICH. Patient is on Eliquis therefore CT head CT neck was obtained. Patient medicated with Tylenol 1 g p.o. patient requesting cervical spine collar to be removed, patient has no neck pain. No midline cervical spine tenderness on examination. Collar was removed. Differential Diagnosis Differential Diagnoses: The differential diagnosis associated with the presentation includes See above Admission/Observation Consideration of admission/observation: Escalation of care including admission/observation considered Patient would have been admitted to the hospital had his work up had any findings where hospital admission was appropriate and his clinical presentation warranted hospital admission. Lab Data 11/13/22 08:41 11/13/22 08:41 Radiology Impression Discussion of test interpretation with radiology: I have reviewed the radiologist's reading. Discharge Plan Discharge Clinical Impression: Fracture of right femur, Swelling of lower extremity Patient Disposition: Admitted As Inpatient Interventions: Admission Worksheet (ED) Last Done: 11/07/22 22:55 Discharge Date/Time: 11/07/22 22:55
[2022-11-07 16:41] VITALS: BP 152/82; BP 163/87; PULSE 84; PULSE 88; RESP 16; TEMP 36.2; O2SAT 97; O2SAT 98; BMI 24.5
[2022-11-07] MEDS: Acetaminophen 325 MG TABLET 975 MG PO (17:04)
[2022-11-07] MEDS: oxyCODONE HCl Immed Release 5 MG TABLET 2.5 MG PO (19:21)
--- NOTE | 2022-11-07 21:04 | PM.IMHP ---
History of Present Illness Date of Service: 11/07/22 Chief Complaint: Fall This is a 87-year-old male with pertinent history of AFib on Eliquis, BPH, gastroesophageal reflux disease, prostate cancer, rheumatoid arthritis who presents to the emergency department for evaluation after a fall. Patient states that he went to see [employer] [facility] on his birthday on the day of presentation. Patient tried to play basketball, his shoes got stuck and tripped. He fell to his right side and had difficulty getting up. Had right lower extremity pain after the fall. No chest pain or palpitations prior to the fall. No loss of consciousness prior to the fall. No rhythmic jerking movement of extremities. Unable to bear weight on his right lower extremity due to the pain. He denies fever, chills, chest discomfort, palpitations, shortness of breath, abdominal pain, changes in urinary or bowel habits. In the emergency department, imaging concerning for femoral fracture. Orthopedic surgery was consulted requested admission. Review of Systems Constitutional: Constitutional: Reports no additional constitutional complaints Cardiovascular: Cardiovascular: Reports no additional cardiovascular complaints Respiratory: Respiratory: Reports no additional respiratory complaints Gastrointestinal: Gastrointestinal: Reports no additional gastrointestinal complaints Genitourinary: Genitourinary: Reports no additional male genitourinary complaints Musculoskeletal: Musculoskeletal: Reports arthralgias PMFSH Medical History Rheumatoid arthritis Atrial fibrillation Nocturia GERD (gastroesophageal reflux disease) Erectile dysfunction 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 Mother No problems noted. Surgical History Hx of appendectomy History of esophagogastroduodenoscopy (EGD) H/O colonoscopy Social History Are you a primary home care physical therapist to a significant other at home: No Do you presently have visiting nurse or other home services: No Patient Tobacco Use Status: Former Tobacco user Quit Date: age 41 Tobacco use type: Cigarette Smoked in Last 30 Days: No Use of substances other than those prescribed or required for medical reasons: No Advance Directives: No Advance Directives Information Provided: No Current occupational status: retired Current occupation: rt handed Meds Allergies Allergy/AdvReac Type Severity Reaction Status Date / Time No Known Allergies Allergy Verified 11/06/22 09:12 Active Medications: Current Medications Acetaminophen (Acetaminophen Supp 650 Mg Supp.Rect) 650 mg WA Q6H PRN PRN Reason: Pain, Mild (Pain Scale 1-3) Acetaminophen (Acetaminophen 325 Mg Tablet) 650 mg PO Q6H PRN PRN Reason: Pain, Mild (Pain Scale 1-3) Melatonin (Melatonin 3 Mg Tablet) 6 mg PO BEDTIME PRN PRN Reason: Insomnia Morphine Sulfate (Morphine Sulfate 4 Mg/Ml Cartridge) 4 mg IVPUSH Q4H PRN; Protocol PRN Reason: Pain, Severe (Pain Scale 7-10) Ondansetron HCl (Ondansetron Hcl 4 Mg/2 Ml Vial) 4 mg IVPUSH Q8H PRN PRN Reason: Nausea and Vomiting Sodium Chloride (0.9 % Sodium Chloride Flush 3 Ml Syringe) 3 ml IVFLUSH [facility] Medications Medication Instructions Recorded Confirmed Last Taken Type famotidine 20 mg tablet 20 mg PO BEDTIME 11/05/20 08/16/22 Unknown History methotrexate sodium 2.5 mg tablet 7.5 mg PO QWEEK 11/05/20 08/16/22 Unknown History diphenhydramine HCl 25 mg capsule 25 mg PO BEDTIME PRN Insomnia 01/10/22 08/16/22 Unknown History (Benadryl) melatonin 5 mg tablet 5 mg PO BEDTIME PRN Insomnia 01/10/22 08/16/22 Unknown History folic acid 1 mg tablet 1 mg PO DAILY 08/16/22 08/16/22 Unknown History Physical Exam Vital Signs and Narrative: Vital Signs: Last Vital Signs Temp 97.2 F 11/07/22 16:41 Pulse 88 11/07/22 16:41 Resp 16 11/07/22 16:41 BP 163/87 H 11/07/22 16:41 Pulse Ox 97 11/07/22 16:41 O2 Del Method Room Air 11/07/22 16:41 BMI result Body Mass Index 24.5 Elderly male lying in bed in no distress Neck supple, no JVD Irregularly irregular, S1-S2 heard Regular breath sounds bilaterally, no wheezing or crackles appreciated Abdomen soft nontender, no guarding, no rigidity Patient is awake, alert and oriented to self, place, time and person ; no focal motor deficit Musculoskeletal: Right lower extremity movement limited due to pain Psych: Normal mood No pedal edema Results Imaging Radiologist's Impressions: Impressions Femur X-Ray 11/07/22 18:30 IMPRESSION: Minimally displaced right femoral intertrochanteric fracture. Hip/Pelvis X-Ray 11/07/22 18:30 IMPRESSION: Minimally displaced right femoral intertrochanteric fracture. Cervical Spine CT 11/07/22 19:14 IMPRESSION: Limited study due to presence of motion artifacts. 1. No acute intracranial pathology. 2. No CT evidence of acute cervical spine fracture or traumatic subluxation. Head CT 11/07/22 19:14 IMPRESSION: Limited study due to presence of motion artifacts. 1. No acute intracranial pathology. 2. No CT evidence of acute cervical spine fracture or traumatic subluxation. Assessment and Plan (1) Right femoral fracture: Qualifiers: Encounter type: initial encounter Femur location: intertrochanteric Status: Acute Plan This is a 87-year-old male with pertinent history of AFib on Eliquis, BPH, gastroesophageal reflux disease, prostate cancer who presents to the emergency department for evaluation after a fall. #. Right femoral fracture due to mechanical fall. Will admit patient and initiate IV opioids p.r.n. for symptomatic control. Orthopedic surgery consulted from the ER, appreciate assistance. #. Preoperative risk. RCRI score 0, class 1. Okay to proceed with surgery with acceptable risk #. Paroxysmal atrial fibrillation on anticoagulation. Hold anticoagulation for possible surgery. Rate controlled in the ER #. Gastroesophageal reflux disease: On famotidine #. BPH on finasteride DVT prophylaxis: Hold anticoagulation for possible surgery Full Code. Discussed with patient and daughters at bedside Admit as inpatient and will require two night minimum hospital stay for treatment of right femoral intertrochanteric fracture. Specialist consult pending Time Spent With Patient Time: Total time managing care of this patient today ____ minutes. Quality Stroke Does the patient have a stroke diagnosis?: No VTE Prior VTE?: No VTE Risk Level:: Medical - moderate - high VTE Device Contraindication: Treatment Not Indicated VTE Drug Contraindication: Treatment Not Indicated
[2022-11-07 21:32] LABS: MANUAL DIFF FLAG NO
[2022-11-07 21:35] LABS: Basophils Percent Auto 0.4 % (0-2); Eosinophils Percent Auto 0.2 % (0-4); Hematocrit 35.2 % (42.0-52.0); Hemoglobin 11.9 g/dl (14.0-18.0); Imm Gran Abs Auto 0.05 X10*3/uL (0.00-0.03); Imm Gran Pct Auto 0.5 % (0.0-0.4); Lymphocytes Absolute Auto 1.1 X10*3/uL (1.2-4.9); Lymphocytes Percent Auto 10.5 % (20-40); Mean Corpuscular HGB Conc 33.8 g/dl (31.0-36.0); Mean Corpuscular Hemoglobin 32.6 pg (27.0-33.0); Mean Corpuscular Volume 96.4 fL (80.0-98.0); Mean Platelet Volume 10.7 fL (9.4-12.4); Monocytes Absolute Auto 0.6 X10*3/uL (0.1-1.2); Monocytes Percent Auto 5.7 % (2-11); Neutrophils Absolute Auto 8.5 x10*3/uL (2.0-8.3); Neutrophils Percent Auto 82.7 % (45-73); Platelet Count 222 X10*3/uL (160-400); Red Blood Count 3.65 X10*6/uL (4.60-5.80); Red Cell Distribution Width 13.6 % (11.0-16.0); White Blood Count 10.3 X10*3/uL (4.8-10.8)
[2022-11-07] MEDS: Morphine Sulfate 4 MG/ML CARTRIDGE IVPUSH ×2 (21:37→23:19)
[2022-11-07 21:43] LABS: INTERNATIONAL NORM RATIO 1.1 (0.9-1.1); Prothrombin Time 13.2 SEC (11.1-13.3)
--- NOTE | 2022-11-07 21:43 | PHA.MEDREC ---
Pharmacy Consult ? Medication Reconciliation Pharmacy has completed the medication reconciliation. Patient reported medications.
[2022-11-07 21:46] LABS: Partial Thromboplastin Time 30.6 SEC (26.0-36.4)
[2022-11-07 21:52] LABS: Alanine Aminotransferase 32 U/L (0-40); Albumin Level 3.7 g/dL (3.5-5.0); Alkaline Phosphatase 70 U/L (39-117); Anion Gap 14 (12-20); Aspartate Amino Transferase 46 U/L (5-37); Bilirubin Total 0.7 mg/dL (0.0-1.0); Blood Urea Nitrogen 20 mg/dL (9-16); Calcium 9.7 mg/dL (8.4-10.2); Carbon Dioxide 24 mmol/L (22-29); Chloride 105 mmol/L (96-108); Estimated Glomerular Filt Rate 54; Glucose Random 117 mg/dL (60-115); Potassium 4.1 mmol/L (3.3-5.1); Sodium 139 mmol/L (135-145); Total Protein 7.2 g/dL (6.5-8.0)
[2022-11-07 21:54] VITALS: BP 138/78; PULSE 85; RESP 20; TEMP 36.7; O2SAT 96
[2022-11-07] MEDS: Famotidine 20 MG TABLET PO (22:28)
--- NOTE | 2022-11-07 22:35 | PC.NURSE ---
Domínguez catheter inserted with yellow urine noted. Patient tolerated procedure well.
[2022-11-07 23:06] VITALS: BP 155/74; PULSE 89; RESP 17; TEMP 36.3; O2SAT 99
[2022-11-07 23:10] LABS: COVID-19 Test Negative (Negative); IDNOW Serial# 08D9AD1C
[2022-11-07] MEDS: Acetaminophen 325 MG TABLET 650 MG PO (23:18)
[2022-11-07] MEDS: Melatonin 3 MG TABLET 6 MG PO (23:19)
[2022-11-07] MEDS: 0.9 % Sodium Chloride Flush 3 ML SYRINGE IVFLUSH (23:20)
[2022-11-08] MEDS: HYDROmorphone HCl 0.5 MG/0.5 ML SYRINGE IVPUSH (01:08)
[2022-11-08 02:55] VITALS: BP 124/59; PULSE 97; RESP 17; TEMP 36.4; O2SAT 97
[2022-11-08 07:16] VITALS: BP 161/72; PULSE 80; RESP 20; TEMP 36.7; O2SAT 97
--- NOTE | 2022-11-08 07:26 | P.PNIM_ITS ---
Subjective Subjective Date of Service: 11/08/22 Interval History: f/u on fall and hip fractire interval history: sore all over from lying in bed Physical Exam 2 Vital Signs: Vital Signs: Last Vital Signs Temp 98.1 F 11/08/22 07:16 Pulse 80 11/08/22 07:16 Resp 20 11/08/22 07:16 BP 161/72 H 11/08/22 07:16 Pulse Ox 97 11/08/22 07:16 O2 Del Method Room Air 11/08/22 07:16 BMI result Body Mass Index 24.5 Const: Other: General: AO X 3, no acute distress Resp: CTA bilateral CVS: S1,S2,RRR GI: +BS, NT, no distention Skin: No rash Neuro: motor grossly intact Psych: appropriate affect Objective Data Active Medications Acetaminophen (Acetaminophen Supp 650 Mg Supp.Rect) 650 mg HI Q6H PRN PRN Reason: Pain, Mild (Pain Scale 1-3) Acetaminophen (Acetaminophen 325 Mg Tablet) 650 mg PO Q6H PRN PRN Reason: Pain, Mild (Pain Scale 1-3) Last Admin: 11/07/22 23:18 Dose: 650 mg Documented By: CASI Famotidine (Famotidine 20 Mg Tablet) 20 mg PO BEDTIME [facility] Last Admin: 11/07/22 22:28 Dose: 20 mg Documented By: XANDER Finasteride (Finasteride 5 Mg Tablet) 5 mg PO DAILY [facility] Folic Acid (Folic Acid 1 Mg Tablet) 1 mg PO DAILY [facility] Melatonin (Melatonin 3 Mg Tablet) 6 mg PO BEDTIME PRN PRN Reason: Insomnia Last Admin: 11/07/22 23:19 Dose: 6 mg Documented By: CASI Morphine Sulfate (Morphine Sulfate 4 Mg/Ml Cartridge) 4 mg IVPUSH Q4H PRN; Protocol PRN Reason: Pain, Severe (Pain Scale 7-10) Last Admin: 11/07/22 23:19 Dose: 4 mg Documented By: CASI Multivitamins/Vitamin C (Multivitamin Tablet) 1 tab PO DAILY [facility] Ondansetron HCl (Ondansetron Hcl 4 Mg/2 Ml Vial) 4 mg IVPUSH Q8H PRN PRN Reason: Nausea and Vomiting Sodium Chloride (0.9 % Sodium Chloride Flush 3 Ml Syringe) 3 ml IVFLUSH QSHIFT [facility] Last Admin: 11/07/22 23:20 Dose: 3 ml Documented By: CASI Labs 11/07/22 21:28 11/08/22 07:43 Labs: Laboratory Results - last 24 hr 11/07/22 11/07/22 21:28 22:49 MCV 96.4 MCH 32.6 MCHC 33.8 RDW 13.6 Plt Count 222 MPV 10.7 Immature Gran % (Auto) 0.5 H Neut % (Auto) 82.7 H Lymph % (Auto) 10.5 L [place] % (Auto) 5.7 Eos % (Auto) 0.2 Baso % (Auto) 0.4 Lymph # (Auto) 1.1 L [place] # (Auto) 0.6 Eos # (Auto) 0.0 Baso # (Auto) 0.0 Abs Immat Gran (auto) 0.05 H Absolute Neuts (auto) 8.5 H Absolute Nucleated RBC 0.000 Nucleated RBC % (auto) 0.0 PT 13.2 INR 1.1 APTT 30.6 Anion Gap 14 Estim Creat Clear Calc 42.0 Estimated GFR 54 Random Glucose 117 H Calcium 9.7 Total Bilirubin 0.7 AST 46 H ALT 32 Alkaline Phosphatase 70 Total Protein 7.2 Albumin 3.7 COVID-19 ([facility]ERT[facility]) Negative COVID-19 Clin Com See Note Assessment and Plan (1) Right femoral fracture: Status: Acute Plan 87-year-old male with pertinent history of AFib on Eliquis, BPH, GERD, prostate cancer who presents to the emergency department for evaluation after a fall and found to have righ hip fracture #. Right femoral fracture due to mechanical fall, will need operative repair, apixan is on hold, - Preoperative risk. RCRI score 0, class 1. No further work up indicated at this time #. Paroxysmal atrial fibrillation on anticoagulation. rate controlled. Hold anticoagulation for surgery. #. Gastroesophageal reflux disease: famotidine #. BPH on finasteride DVT prophylaxis: Hold anticoagulation for possible surgery, compression device Full Code. Discussed with patient and daughters at bedside Time Spent With Patient Time: Total time managing care of this patient today ____ minutes. Quality Stroke Does the patient have a stroke diagnosis?: No VTE Prior VTE?: No VTE Risk Level:: Medical - moderate - high VTE Device Contraindication: Treatment Not Indicated VTE Drug Contraindication: Treatment Not Indicated
--- NOTE | 2022-11-08 07:38 | PM.CNOR ---
History of Present Illness HPI Consult date: 11/08/22 Chief complaint: Fall Narrative: Mr. Disla is an 87 yo male who presented to the ED last night after sustaining a mechanical fall. PMH significant for [facility] Mcknight on [facility]. He lives alone. After the mechanical fall he felt immediate right hip pain and was unable to ambulate due to pain. X-rays obtained in the ED revealed a right intertrochanteric hip fracture. He was admitted to the medicine service with orthopedic consult for further evaluation and treatment. 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 Mother No problems noted. Surgical History Surgical History Hx of appendectomy History of esophagogastroduodenoscopy (EGD) H/O colonoscopy Social History Social History Household Members: None Housing: House Are you a primary health care facilities inspector to a significant other at home: No Do you presently have visiting nurse or other home services: No Patient Tobacco Use Status: Former Tobacco user Quit Date: 60 years ago Tobacco use type: Cigarette Current occupational status: retired Current occupation: rt handed Meds Allergies Allergy/AdvReac Type Severity Reaction Status Date / Time No Known Allergies Allergy Verified 11/06/22 09:12 Active Medications: Current Medications Acetaminophen (Acetaminophen Supp 650 Mg Supp.Rect) 650 mg [place] Q6H PRN PRN Reason: Pain, Mild (Pain Scale 1-3) Acetaminophen (Acetaminophen 325 Mg Tablet) 650 mg PO Q6H PRN PRN Reason: Pain, Mild (Pain Scale 1-3) Last Admin: 11/07/22 23:18 Dose: 650 mg Famotidine (Famotidine 20 Mg Tablet) 20 mg PO BEDTIME [facility] Last Admin: 11/07/22 22:28 Dose: 20 mg Finasteride (Finasteride 5 Mg Tablet) 5 mg PO DAILY [facility] Folic Acid (Folic Acid 1 Mg Tablet) 1 mg PO DAILY [facility] Melatonin (Melatonin 3 Mg Tablet) 6 mg PO BEDTIME PRN PRN Reason: Insomnia Last Admin: 11/07/22 23:19 Dose: 6 mg Morphine Sulfate (Morphine Sulfate 4 Mg/Ml Cartridge) 4 mg IVPUSH Q4H PRN; Protocol PRN Reason: Pain, Severe (Pain Scale 7-10) Last Admin: 11/07/22 23:19 Dose: 4 mg Multivitamins/Vitamin C (Multivitamin Tablet) 1 tab PO DAILY [facility] Ondansetron HCl (Ondansetron Hcl 4 Mg/2 Ml Vial) 4 mg IVPUSH Q8H PRN PRN Reason: Nausea and Vomiting Sodium Chloride (0.9 % Sodium Chloride Flush 3 Ml Syringe) [facility] Last Admin: 11/07/22 23:20 Dose: 3 ml Home Medications Medication Instructions Recorded Confirmed Last Taken Type famotidine 20 mg tablet 20 mg PO BEDTIME 11/05/20 11/07/22 11/06/22 History methotrexate sodium 2.5 mg tablet 10 mg PO SA 11/05/20 11/07/22 11/04/22 History melatonin 5 mg tablet 5 mg PO BEDTIME PRN Insomnia 01/10/22 11/07/22 11/07/22 History folic acid 1 mg tablet 1 mg PO DAILY 08/16/22 11/07/22 11/07/22 History multivitamin 1 tab PO DAILY 11/07/22 11/07/22 11/07/22 History Physical Exam Vital Signs: Vital Signs: Last Vital Signs Temp 98.1 F 11/08/22 07:16 Pulse 80 11/08/22 07:16 Resp 20 11/08/22 07:16 BP 161/72 H 11/08/22 07:16 Pulse Ox 97 11/08/22 07:16 O2 Del Method Room Air 11/08/22 07:16 BMI result Body Mass Index 24.5 Const: General: cooperative, healthy appearing and no acute distress Resp: Effort & Inspection: normal respiratory effort and able to speak in complete sentences Cardio: Rate: regular rate Peripheral pulses: Peripheral pulses 2+ throughout GI: Palpation (GI): Soft to palpation Skin: Lesions: no lesions Rashes: no rashes Extrem: Other: RLE is shortened and externally rotated Able to dorsi/plantar flex Skin intact Results Labs 11/07/22 21:28 11/07/22 21:28 Labs: Abnormal lab results 11/07/22 Range/Units 21:28 RBC 3.65 L (4.60-5.80) X10*6/uL Hgb 11.9 L (14.0-18.0) g/dl Hct 35.2 L (42.0-52.0) % Immature Gran % (Auto) 0.5 H (0.0-0.4) % Neut % (Auto) 82.7 H (45-73) % Lymph % (Auto) 10.5 L (20-40) % Lymph # (Auto) 1.1 L (1.2-4.9) X10*3/uL Abs Immat Gran (auto) 0.05 H (0.00-0.03) X10*3/uL Absolute Neuts (auto) 8.5 H (2.0-8.3) x10*3/uL BUN 20 H (9-16) mg/dL Random Glucose 117 H (60-115) mg/dL AST 46 H (5-37) U/L H & H 11/07/22 Range/Units 21:28 Hgb 11.9 L (14.0-18.0) g/dl Hct 35.2 L (42.0-52.0) % Coagulation 11/07/22 Range/Units 21:28 INR 1.1 (0.9-1.1) All other labs normal. Assessment and Plan (1) Right femoral fracture: Status: Acute I discussed the case with Dr. Vidal and explained the extent of the injury to the patient and options available which include surgical intervention. I explained the procedure in detail along with the length of recovery and rehab course. I explained the risk, benefits and alternatives. Risk including, but not limited to infection, blood clots, bleeding, non union or malunion and nerve/tissue damage to surrounding areas. I answered all their questions and with their understanding they have consented to move forward with Operative Fixation of the right femur. The patient will be T&S and hold Eliquis. (2) Persistent atrial fibrillation: Status: Acute Time Spent With Patient Time: Total time managing care of this patient today ____ minutes. Procedures Date of Service Date of Service: 11/08/22
[2022-11-08] MEDS: ondansetron HCL 4 MG/2 ML VIAL IVPUSH ×2 (08:01→18:22)
[2022-11-08] MEDS: 0.9 % Sodium Chloride Flush 3 ML SYRINGE IVFLUSH ×3 (08:02→20:57)
[2022-11-08] MEDS: Morphine Sulfate 4 MG/ML CARTRIDGE IVPUSH ×2 (08:04→18:27)
[2022-11-08 08:33] LABS: Alanine Aminotransferase 28 U/L (0-40); Albumin Level 3.4 g/dL (3.5-5.0); Alkaline Phosphatase 65 U/L (39-117); Anion Gap 10 (12-20); Aspartate Amino Transferase 34 U/L (5-37); Bilirubin Total 0.7 mg/dL (0.0-1.0); Blood Urea Nitrogen 20 mg/dL (9-16); Calcium 9.3 mg/dL (8.4-10.2); Carbon Dioxide 31 mmol/L (22-29); Chloride 103 mmol/L (96-108); Creatinine Clr Calc Pharmacy 38.7; Estimated Glomerular Filt Rate 49; Glucose Random 119 mg/dL (60-115); Sodium 140 mmol/L (135-145); Total Protein 6.4 g/dL (6.5-8.0)
--- NOTE | 2022-11-08 11:25 | MHC.CLN ---
NUTRITION CONSULT FOR REPORTED WEIGHT LOSS. REVIEW OF WEIGHT HISTORY SHOWS WEIGHT OVERALL STABLE X 3 MONTHS AND ONE YEAR. NO ADDITIONAL NUTRITION INTERVENTIONS AT THIS TIME.
[2022-11-08] MEDS: Promethazine HCL 25 MG TABLET PO (11:39)
--- NOTE | 2022-11-08 13:13 | MHC.CM.PN ---
pt lives alone had no services will need str when dcd woukld like [facility]
[2022-11-08 15:12] VITALS: BP 124/67; PULSE 88; RESP 18; TEMP 37.2; O2SAT 95
[2022-11-08] MEDS: Sodium Chloride 0.45 % 1,000 ML 80 ML IVCONT (18:31)
[2022-11-08 19:25] VITALS: BP 148/74; PULSE 95; RESP 17; TEMP 36.6; O2SAT 96
--- NOTE | 2022-11-09 | ECG_ITS ---
Test Reason : preop Blood Pressure : / mmHG Vent. Rate : 088 BPM Atrial Rate : 000 BPM P-R Int : 000 ms QRS Dur : 090 ms QT Int : 354 ms P-R-T Axes : 000 068 038 degrees QTc Int : 428 ms Atrial fibrillation Nonspecific T wave abnormality Abnormal ECG When compared with ECG of 21-OCT-2003 22:52, Atrial fibrillation has replaced Sinus rhythm Nonspecific T wave abnormality now evident in Inferior leads Referred By: Jennifer Wu Electronically Signed By:ALEXIS CARRION
[2022-11-09 04:00] VITALS: BP 135/69; PULSE 97; RESP 14; TEMP 36.2; O2SAT 97
--- NOTE | 2022-11-09 07:00 | HO.PM.IMPN ---
Subjective Subjective Date of Service: 11/09/22 Interval History: f/u on fall and hip fractire interval history: pain in the hip with movment Physical Exam Vital Signs: Vital Signs: Last Vital Signs Temp 97.1 F 11/09/22 04:00 Pulse 97 11/09/22 04:00 Resp 14 11/09/22 04:00 BP 135/69 11/09/22 04:00 Pulse Ox 97 11/09/22 04:00 O2 Del Method Room Air 11/09/22 04:00 BMI result Body Mass Index 24.5 Const: Other: General: AO X 3, no acute distress Resp: CTA bilateral CVS: S1,S2,RRR GI: +BS, NT, no distention Skin: No rash Neuro: motor grossly intact Psych: appropriate affect Objective Data Active Medications Acetaminophen (Acetaminophen Supp 650 Mg Supp.Rect) 650 mg [place] Q6H PRN PRN Reason: Pain, Mild (Pain Scale 1-3) Acetaminophen (Acetaminophen 325 Mg Tablet) 650 mg PO Q6H PRN PRN Reason: Pain, Mild (Pain Scale 1-3) Last Admin: 11/07/22 23:18 Dose: 650 mg Documented By: CASI Famotidine (Famotidine 20 Mg Tablet) 20 mg PO BEDTIME [facility] Last Admin: 11/08/22 23:39 Dose: Not Given Documented By: OMKAR Non-Admin Reason: Patient Refused Finasteride (Finasteride 5 Mg Tablet) 5 mg PO DAILY [facility] Last Admin: 11/08/22 08:54 Dose: Not Given Documented By: MIHAI Non-Admin Reason: Patient Refused Folic Acid (Folic Acid 1 Mg Tablet) 1 mg PO DAILY [facility] Last Admin: 11/08/22 08:54 Dose: Not Given Documented By: MIHAI Non-Admin Reason: Patient Refused Melatonin (Melatonin 3 Mg Tablet) 6 mg PO BEDTIME PRN PRN Reason: Insomnia Last Admin: 11/07/22 23:19 Dose: 6 mg Documented By: CASI Morphine Sulfate (Morphine Sulfate 4 Mg/Ml Cartridge) 4 mg IVPUSH Q4H PRN; Protocol PRN Reason: Pain, Severe (Pain Scale 7-10) Last Admin: 11/08/22 18:27 Dose: 4 mg Documented By: MIHAI Multivitamins/Vitamin C (Multivitamin Tablet) 1 tab PO DAILY [facility] Last Admin: 11/08/22 08:54 Dose: Not Given Documented By: MIHAI Non-Admin Reason: Patient Refused Ondansetron HCl (Ondansetron Hcl 4 Mg/2 Ml Vial) 4 mg IVPUSH Q8H PRN PRN Reason: Nausea and Vomiting Last Admin: 11/08/22 18:22 Dose: 4 mg Documented By: MIHAI Promethazine HCl (Promethazine Hcl 25 Mg Tablet) 25 mg PO Q6H PRN PRN Reason: Nausea Last Admin: 11/08/22 11:39 Dose: 25 mg Documented By: MIHAI Sodium Chloride (0.9 % Sodium Chloride Flush 3 Ml Syringe) 3 ml IVFLUSH QSHIFT [facility] Last Admin: 11/08/22 20:57 Dose: 3 ml Documented By: TIMOTEOB Labs 11/07/22 21:28 11/08/22 07:43 Labs: Laboratory Results - last 24 hr 11/08/22 11/08/22 07:43 08:07 Anion Gap 10 L Estim Creat Clear Calc 38.7 Estimated GFR 49 Random Glucose 119 H Calcium 9.3 Total Bilirubin 0.7 AST 34 ALT 28 Alkaline Phosphatase 65 Total Protein 6.4 L Albumin 3.4 L Blood Type O Positive Antibody Screen NEGATIVE Assessment and Plan (1) Right femoral fracture: Status: Acute Plan 87-year-old male with pertinent history of AFib on Eliquis, BPH, GERD, prostate cancer who presents to the emergency department for evaluation after a fall and found to have righ hip fracture #. Right femoral fracture due to mechanical fall, will need operative repair, apixan is on hold, - Preoperative risk. RCRI score 0, class 1. No further work up indicated at this time. Ortho to decide on surgery day #. Paroxysmal atrial fibrillation on anticoagulation. rate controlled. Hold anticoagulation for surgery. #. Gastroesophageal reflux disease: famotidine #. BPH on finasteride DVT prophylaxis: Hold anticoagulation for possible surgery, compression device Full Code. Discussed with patient and daughters at bedside Time Spent With Patient Time: Total time managing care of this patient today ____ minutes. Quality Stroke Does the patient have a stroke diagnosis?: No VTE Prior VTE?: No VTE Risk Level:: Medical - moderate - high VTE Device Contraindication: Treatment Not Indicated VTE Drug Contraindication: Treatment Not Indicated
[2022-11-09 07:45] VITALS: BP 133/76; PULSE 90; RESP 16; TEMP 36.2; O2SAT 98
--- NOTE | 2022-11-09 09:04 | PM.EVENT ---
Event Note Date of Service: 11/09/22 Event Note: Patient seen this morning, no overnight events. Pain is managed. Nausea improved after med adjustment yesterday. Continue to hold Eliquis and plan for surgical intervention Sunday. NPO after midnight. Time Spent With Patient Time: Total time managing care of this patient today ____ minutes.
[2022-11-09] MEDS: Lactated Ringers 1,000 ML 80 ML IVCONT ×2 (09:16→20:36)
[2022-11-09] MEDS: Folic Acid 1 MG TABLET PO (09:17)
[2022-11-09] MEDS: Multivitamin TABLET 1 TAB PO (09:17)
[2022-11-09] MEDS: 0.9 % Sodium Chloride Flush 3 ML SYRINGE IVFLUSH (09:18)
[2022-11-09] MEDS: Acetaminophen 325 MG TABLET 650 MG PO (09:18)
[2022-11-09] MEDS: Morphine Sulfate 4 MG/ML CARTRIDGE IVPUSH (11:51)
[2022-11-09] MEDS: Famotidine 20 MG TABLET PO ×2 (15:16→20:36)
[2022-11-09 15:22] VITALS: BP 165/74; PULSE 99; RESP 17; TEMP 36.1; O2SAT 97
[2022-11-09] MEDS: ondansetron HCL 4 MG/2 ML VIAL IVPUSH (18:35)
[2022-11-09 19:34] VITALS: BP 164/78; PULSE 100; RESP 17; TEMP 36.4; O2SAT 97
[2022-11-10] VITALS (11 sets, daily range): BP systolic 126–151; BP diastolic 62–88; PULSE 70–110; RESP 16–20; TEMP 36–36.6; O2SAT 94–98
--- NOTE | 2022-11-10 07:27 | P.PNIM_ITS ---
Subjective Subjective Date of Service: 11/10/22 Interval History: Pain in the hip, especially with movment Physical Exam 2 Vital Signs: Vital Signs: Last Vital Signs Temp 97.7 F 11/10/22 07:26 Pulse 94 11/10/22 07:26 Resp 18 11/10/22 07:26 BP 151/88 H 11/10/22 07:26 Pulse Ox 97 11/10/22 07:26 O2 Del Method Room Air 11/10/22 07:26 BMI result Body Mass Index 24.5 Const: Other: General: AO X 3, no acute distress Resp: CTA bilateral CVS: S1,S2,RRR GI: +BS, NT, no distention Skin: No rash Neuro: motor grossly intact Psych: appropriate affect Objective Data Active Medications Acetaminophen (Acetaminophen Supp 650 Mg Supp.Rect) 650 mg [place] Q6H PRN PRN Reason: Pain, Mild (Pain Scale 1-3) Acetaminophen (Acetaminophen 325 Mg Tablet) 650 mg PO Q6H PRN PRN Reason: Pain, Mild (Pain Scale 1-3) Last Admin: 11/09/22 09:18 Dose: 650 mg Documented By: CARLOS Famotidine (Famotidine 20 Mg Tablet) 20 mg PO BID [facility] Last Admin: 11/09/22 20:36 Dose: 20 mg Documented By: OMKAR Finasteride (Finasteride 5 Mg Tablet) 5 mg PO DAILY [facility] Last Admin: 11/09/22 09:22 Dose: Not Given Documented By: CARLOS Non-Admin Reason: Patient Refused Folic Acid (Folic Acid 1 Mg Tablet) 1 mg PO DAILY [facility] Last Admin: 11/09/22 09:17 Dose: 1 mg Documented By: CARLOS Lactated Ringer's (Lr) 1,000 mls @ 80 mls/hr IVCONT .[id number] [facility] Last Admin: 11/09/22 20:36 Dose: 80 mls/hr Documented By: OMKAR Melatonin (Melatonin 3 Mg Tablet) 6 mg PO BEDTIME PRN PRN Reason: Insomnia Last Admin: 11/07/22 23:19 Dose: 6 mg Documented By: CASI Morphine Sulfate (Morphine Sulfate 4 Mg/Ml Cartridge) 4 mg IVPUSH Q4H PRN; Protocol PRN Reason: Pain, Severe (Pain Scale 7-10) Last Admin: 11/09/22 11:51 Dose: 4 mg Documented By: CARLOS Multivitamins/Vitamin C (Multivitamin Tablet) 1 tab PO DAILY [facility] Last Admin: 11/09/22 09:17 Dose: 1 tab Documented By: CARLOS Ondansetron HCl (Ondansetron Hcl 4 Mg/2 Ml Vial) 4 mg IVPUSH Q8H PRN PRN Reason: Nausea and Vomiting Last Admin: 11/09/22 18:35 Dose: 4 mg Documented By: CARLOS Promethazine HCl (Promethazine Hcl 25 Mg Tablet) 25 mg PO Q6H PRN PRN Reason: Nausea Last Admin: 11/08/22 11:39 Dose: 25 mg Documented By: MIHAI Sodium Chloride (0.9 % Sodium Chloride Flush 3 Ml Syringe) 3 ml IVFLUSH QSHIFT [facility] Last Admin: 11/09/22 23:46 Dose: Not Given Documented By: OMKAR Non-Admin Reason: IV Running Labs 11/07/22 21:28 11/08/22 07:43 Assessment and Plan (1) Right femoral fracture: Status: Acute Plan 87-year-old male with pertinent history of AFib on Eliquis, BPH, GERD, prostate cancer who presents to the emergency department for evaluation after a fall and found to have righ hip fracture # Right femoral fracture due to mechanical fall, will need operative repair, apixan is on hold, Preoperative risk. RCRI score 0, class 1. No further work up indicated at this time. For surgery today # Paroxysmal atrial fibrillation on anticoagulation. rate controlled. Hold anticoagulation for surgery, restart eliquis tomorrow # Gastroesophageal reflux disease: famotidine # BPH on finasteride DVT prophylaxis: Hold anticoagulation for possible surgery, compression device Full Code. Discussed with patient and daughters at bedside Time Spent With Patient Time: Total time managing care of this patient today ____ minutes. Quality Stroke Does the patient have a stroke diagnosis?: No VTE Prior VTE?: No VTE Risk Level:: Medical - moderate - high VTE Device Contraindication: Treatment Not Indicated VTE Drug Contraindication: Treatment Not Indicated
[2022-11-10] MEDS: Finasteride 5 MG TABLET PO (08:36)
[2022-11-10] MEDS: Folic Acid 1 MG TABLET PO (08:36)
[2022-11-10] MEDS: Multivitamin TABLET 1 TAB PO (08:36)
[2022-11-10] MEDS: Famotidine 20 MG TABLET PO ×2 (08:36→19:42)
[2022-11-10] MEDS: Lactated Ringers 1,000 ML 80 ML IVCONT ×2 (09:25→22:53)
[2022-11-10 09:47] LABS: MANUAL DIFF FLAG NO
[2022-11-10 09:53] LABS: Basophils Absolute Auto 0.1 X10*3/uL (0.0-0.2); Basophils Percent Auto 0.3 % (0-2); Eosinophils Percent Auto 0.1 % (0-4); Hematocrit 34.5 % (42.0-52.0); Hemoglobin 11.5 g/dl (14.0-18.0); Imm Gran Pct Auto 0.6 % (0.0-0.4); Lymphocytes Absolute Auto 0.9 X10*3/uL (1.2-4.9); Lymphocytes Percent Auto 5.7 % (20-40); Mean Corpuscular HGB Conc 33.3 g/dl (31.0-36.0); Mean Corpuscular Hemoglobin 33.1 pg (27.0-33.0); Mean Corpuscular Volume 99.4 fL (80.0-98.0); Mean Platelet Volume 10.7 fL (9.4-12.4); Monocytes Absolute Auto 1.5 X10*3/uL (0.1-1.2); Monocytes Percent Auto 9.4 % (2-11); Neutrophils Absolute Auto 13.3 x10*3/uL (2.0-8.3); Neutrophils Percent Auto 83.9 % (45-73); Platelet Count 193 X10*3/uL (160-400); Red Blood Count 3.47 X10*6/uL (4.60-5.80); Red Cell Distribution Width 14.2 % (11.0-16.0); White Blood Count 15.9 X10*3/uL (4.8-10.8)
[2022-11-10 10:03] LABS: Anion Gap 10 (12-20); Blood Urea Nitrogen 33 mg/dL (9-16); Calcium 8.7 mg/dL (8.4-10.2); Carbon Dioxide 26 mmol/L (22-29); Chloride 104 mmol/L (96-108); Estimated Glomerular Filt Rate > 60; Glucose Random 124 mg/dL (60-115); Potassium 4.1 mmol/L (3.3-5.1); Sodium 136 mmol/L (135-145)
--- NOTE | 2022-11-10 12:50 | MHC.CM.PN ---
per rounds pt going to 0r for surgery today no dc date at this time
--- NOTE | 2022-11-10 13:08 | MHC.SHP ---
Pre-Procedural Eval Section A Date of Service: 11/10/22 The patient is an INPATIENT: Yes Changes since office visit: No Cold of Flu in the past 2 weeks, No New Medical Problems, No Changes in Medication and No Patient answered all questions The History & Physical has been completed within 30 days and I have reviewed it.: Yes Section B Chief Complaint: Fall Allergies: Allergies Allergy/AdvReac Type Severity Reaction Status Date / Time No Known Allergies Allergy Verified 11/10/22 12:43 Plan I have reviewed the history and physical and performed a pertinent physical examination on my patient. No changes have occurred unless specified. Time Spent With Patient Time: Total time managing care of this patient today ____ minutes.
[2022-11-10] MEDS: Acetaminophen 1,000 MG/100 ML PIGGYBACK 400 MG IV (13:10)
[2022-11-10] MEDS: Lactated Ringers 1,000 ML 50 ML IVCONT (13:12)
--- NOTE | 2022-11-10 14:45 | PM.OP ---
Brief Operative Note Date of Service: 11/10/22 Pre-op diagnosis: right intertrochanteric hip fracture Post-op diagnosis: same Procedure: Right hip IMN Implants: Holden [id number] 125 deg with 95 mm hip screw and 50 mm distal interlock Surgeon: Bill Vidal MD Anesthesia: GETA and local Was an [employer]ing Machine Helper used for this Procedure?: No Estimated blood loss (mL): 75 IV fluids (mL): 700 Pathology: none sent Condition: stable Disposition: PACU
[2022-11-10] MEDS: oxyCODONE HCl Immed Release 5 MG TABLET PO (15:07)
[2022-11-10] MEDS: Melatonin 3 MG TABLET 6 MG PO (21:38)
[2022-11-10] MEDS: Morphine Sulfate 4 MG/ML CARTRIDGE IVPUSH (21:39)
[2022-11-11] VITALS: BP 139/70; PULSE 86; RESP 18; TEMP 36.6; O2SAT 98
[2022-11-11 08:00] VITALS: BP 117/67; PULSE 81; RESP 18; TEMP 36.2; O2SAT 97
--- NOTE | 2022-11-11 08:03 | P.PNIM_ITS ---
Subjective Subjective Date of Service: 11/11/22 Interval History: hip repair done yesterday, more comfortable Physical Exam 2 Vital Signs: Vital Signs: Last Vital Signs Temp 97.8 F 11/11/22 00:00 Pulse 86 11/11/22 00:00 Resp 18 11/11/22 00:00 BP 139/70 11/11/22 00:00 Pulse Ox 98 11/11/22 00:00 O2 Del Method Room Air 11/11/22 00:00 BMI result Body Mass Index 24.5 Const: Other: General: AO X 3, no acute distress Resp: CTA bilateral CVS: S1,S2,RRR GI: +BS, NT, no distention Skin: No rash, hip dressing c/d/i Neuro: motor grossly intact Psych: appropriate affect Objective Data Active Medications Acetaminophen (Acetaminophen Supp 650 Mg Supp.Rect) 650 mg [place] Q6H PRN PRN Reason: Pain, Mild (Pain Scale 1-3) Acetaminophen (Acetaminophen 325 Mg Tablet) 650 mg PO Q6H PRN PRN Reason: Pain, Mild (Pain Scale 1-3) Last Admin: 11/09/22 09:18 Dose: 650 mg Documented By: CARLOS Apixaban (Apixaban 2.5 Mg Tablet) 2.5 mg PO BID [facility] Famotidine (Famotidine 20 Mg Tablet) 20 mg PO BID [facility] Last Admin: 11/10/22 19:42 Dose: 20 mg Documented By: NATALIIA Fentanyl (Fentanyl Citrate/Pf 100 Mcg/2 Ml Vial) 25 mcg IVPUSH Q5M PRN; Protocol PRN Reason: Pain, Moderate(Pain Scale 4-6) Finasteride (Finasteride 5 Mg Tablet) 5 mg PO DAILY [facility] Last Admin: 11/10/22 08:36 Dose: 5 mg Documented By: NEERAJ Folic Acid (Folic Acid 1 Mg Tablet) 1 mg PO DAILY [facility] Last Admin: 11/10/22 08:36 Dose: 1 mg Documented By: NEERAJ Hydromorphone HCl (Hydromorphone Hcl 0.5 Mg/0.5 Ml Syringe) 0.25 mg IVPUSH Q5M PRN; Protocol PRN Reason: Pain, Severe (Pain Scale 7-10) Lactated Ringer's (Lr) 1,000 mls @ 50 mls/hr IVCONT .Q20H [facility] Last Admin: 11/10/22 13:12 Dose: 50 mls/hr Documented By: FELISA Melatonin (Melatonin 3 Mg Tablet) 6 mg PO BEDTIME PRN PRN Reason: Insomnia Last Admin: 11/10/22 21:38 Dose: 6 mg Documented By: NATALIIA Methotrexate (Methotrexate Sodium 2.5 Mg Tablet) 10 mg PO [facility] Morphine Sulfate (Morphine Sulfate 4 Mg/Ml Cartridge) 4 mg IVPUSH Q4H PRN; Protocol PRN Reason: Pain, Severe (Pain Scale 7-10) Last Admin: 11/10/22 21:39 Dose: 4 mg Documented By: NATALIIA Multivitamins/Vitamin C (Multivitamin Tablet) 1 tab PO DAILY [facility] Last Admin: 11/10/22 08:36 Dose: 1 tab Documented By: NEERAJ Ondansetron HCl (Ondansetron Hcl 4 Mg/2 Ml Vial) 4 mg IVPUSH Q8H PRN PRN Reason: Nausea and Vomiting Last Admin: 11/09/22 18:35 Dose: 4 mg Documented By: CARLOS Ondansetron HCl (Ondansetron Hcl 4 Mg/2 Ml Vial) 4 mg IVPUSH ONCE PRN PRN Reason: Nausea and Vomiting Promethazine HCl (Promethazine Hcl 25 Mg Tablet) 25 mg PO Q6H PRN PRN Reason: Nausea Last Admin: 11/08/22 11:39 Dose: 25 mg Documented By: MIHAI Sodium Chloride (0.9 % Sodium Chloride Flush 3 Ml Syringe) 3 ml IVFLUSH QSHIFT [facility] Last Admin: 11/11/22 00:27 Dose: Not Given Documented By: NATALIIA Non-Admin Reason: IV Running Labs 11/10/22 09:44 11/10/22 09:41 Labs: Laboratory Results - last 24 hr 11/10/22 11/10/22 09:41 09:44 MCV 99.4 H MCH 33.1 H MCHC 33.3 RDW 14.2 Plt Count 193 MPV 10.7 Immature Gran % (Auto) 0.6 H Neut % (Auto) 83.9 H Lymph % (Auto) 5.7 L [place] % (Auto) 9.4 Eos % (Auto) 0.1 Baso % (Auto) 0.3 Lymph # (Auto) 0.9 L [place] # (Auto) 1.5 H Eos # (Auto) 0.0 Baso # (Auto) 0.1 Abs Immat Gran (auto) 0.10 H Absolute Neuts (auto) 13.3 H Absolute Nucleated RBC 0.000 Nucleated RBC % (auto) 0.0 Anion Gap 10 L Estim Creat Clear Calc 49.0 Estimated GFR > 60 Random Glucose 124 H Calcium 8.7 D Assessment and Plan (1) Right femoral fracture: Status: Acute Plan 87-year-old male with pertinent history of AFib on Eliquis, BPH, GERD, prostate cancer who presents to the emergency department for evaluation after a fall and found to have righ hip fracture # Right femoral fracture due to mechanical fall, surgery delayed d/t eliquis, hip repaired o 11/10 and doing well post op. PT eval, pain management and resume eliquis today # Paroxysmal atrial fibrillation on anticoagulation. rate controlled. Hold anticoagulation for surgery, restart eliquis today # Gastroesophageal reflux disease: famotidine # BPH on finasteride DVT prophylaxis: eliquis, compression device Full Code. need for inpat: s/p hip repair Time Spent With Patient Time: Total time managing care of this patient today ____ minutes. Quality Stroke Does the patient have a stroke diagnosis?: No VTE Prior VTE?: No VTE Risk Level:: Medical - moderate - high VTE Device Contraindication: Treatment Not Indicated VTE Drug Contraindication: Treatment Not Indicated
[2022-11-11] MEDS: Famotidine 20 MG TABLET PO ×2 (08:23→20:33)
[2022-11-11] MEDS: Apixaban 2.5 MG TABLET PO ×2 (08:23→20:33)
[2022-11-11] MEDS: Finasteride 5 MG TABLET PO (08:24)
[2022-11-11] MEDS: Folic Acid 1 MG TABLET PO (08:24)
[2022-11-11] MEDS: Multivitamin TABLET 1 TAB PO (08:24)
[2022-11-11] MEDS: Morphine Sulfate 4 MG/ML CARTRIDGE IVPUSH ×3 (08:35→21:40)
[2022-11-11] MEDS: metHOTREXate sodium 2.5 MG TABLET 10 MG PO (08:40)
[2022-11-11] MEDS: Lactated Ringers 1,000 ML 50 ML IVCONT (09:40)
[2022-11-11 11:10] VITALS: BP 117/67; PULSE 81; O2SAT 97
--- NOTE | 2022-11-11 13:02 | PM.PNORT ---
Subjective Subjective Date of Service: 11/11/22 Interval history: POD 1 s/p RT femur IMN no overnight events resting in bed,mild discomfort in the right hip denies cp.palpitations sob Physical Exam Vital Signs: Vital Signs: Last Vital Signs Temp 97.2 F 11/11/22 08:00 Pulse 81 11/11/22 11:10 Resp 18 11/11/22 08:00 BP 117/67 11/11/22 11:10 Pulse Ox 97 11/11/22 11:10 O2 Del Method Room Air 11/11/22 08:00 BMI result Body Mass Index 24.5 Const: General: cooperative, healthy appearing and no acute distress Resp: Effort & Inspection: normal respiratory effort and able to speak in complete sentences Cardio: Rate: regular rate Peripheral pulses: Peripheral pulses 2+ throughout GI: Palpation (GI): Soft to palpation Skin: General skin exam: no rashes or lesions noted Extrem: Other: right hip bandage, c/d/i. He is able to plantar and dorsi flex, NVI Procedures Date of Service Date of Service: 11/11/22 Progress Note: A&P Assessment and plan (1) Fracture, intertrochanteric, right femur: Status: Acute Assessment and Plan: pain mgmnt resume eliquis Pt/OT-wbat dispo pending PT eval Time Spent With Patient Time: Total time managing care of this patient today ____ minutes. Quality Stroke Does the patient have a stroke diagnosis?: No VTE Prior VTE?: No VTE Risk Level:: Medical - moderate - high VTE Device Contraindication: Treatment Not Indicated VTE Drug Contraindication: Treatment Not Indicated
[2022-11-11 16:00] VITALS: BP 120/60; PULSE 99; RESP 18; TEMP 36.4; O2SAT 97
--- NOTE | 2022-11-11 20:31 | HO.POSTANES ---
Post Anesthesia Evaluation Post Anesthesia Evaluation Date of Service: 11/11/22 Vital Signs: Vital Signs Temp Pulse Resp BP Pulse Ox O2 Del Method 11/11/22 16:00 97.5 F 99 18 120/60 97 Room Air 11/11/22 11:10 81 117/67 97 Anesthesia: General LMA Mental Status: Awake Pain Control: Satisfactory Nausea/Vomiting: None Hydration: Adequate Anesthesia-Related Issues: No Anes. Related Issues
[2022-11-11] MEDS: Melatonin 3 MG TABLET 6 MG PO (21:40)
[2022-11-12] VITALS (7 sets, daily range): BP systolic 97–134; BP diastolic 56–68; PULSE 80–103; RESP 18–20; TEMP 36–36.7; O2SAT 93–97
[2022-11-12] MEDS: Lactated Ringers 1,000 ML 50 ML IVCONT (05:31)
[2022-11-12] MEDS: Morphine Sulfate 4 MG/ML CARTRIDGE IVPUSH ×4 (05:36→18:23)
--- NOTE | 2022-11-12 06:36 | PC.NURSE ---
pt refused seq. boots at night he is on eliquis for afib.
[2022-11-12] MEDS: Acetaminophen 325 MG TABLET 650 MG PO ×2 (07:23→20:06)
--- NOTE | 2022-11-12 08:10 | HO.PM.IMPN ---
Subjective Subjective Date of Service: 11/12/22 Interval History: s/p hip repair, he's comofrtable at present Physical Exam Vital Signs: Vital Signs: Last Vital Signs Temp 97.5 F 11/12/22 00:00 Pulse 91 11/12/22 00:00 Resp 20 11/12/22 00:00 BP 97/62 11/12/22 00:00 Pulse Ox 95 11/12/22 00:00 O2 Del Method Room Air 11/12/22 00:00 BMI result Body Mass Index 24.5 Const: Other: General: AO X 3, no acute distress Resp: CTA bilateral CVS: S1,S2,RRR GI: +BS, NT, no distention Skin: No rash, hip dressing c/d/i Neuro: motor grossly intact Psych: appropriate affect Objective Data Active Medications Acetaminophen (Acetaminophen Supp 650 Mg Supp.Rect) 650 mg [place] Q6H PRN PRN Reason: Pain, Mild (Pain Scale 1-3) Acetaminophen (Acetaminophen 325 Mg Tablet) 650 mg PO Q6H PRN PRN Reason: Pain, Mild (Pain Scale 1-3) Last Admin: 11/12/22 07:23 Dose: 650 mg Documented By: OMKAR Apixaban (Apixaban 2.5 Mg Tablet) 2.5 mg PO BID [facility] Last Admin: 11/11/22 20:33 Dose: 2.5 mg Documented By: LIONEL Famotidine (Famotidine 20 Mg Tablet) 20 mg PO BID [facility] Last Admin: 11/11/22 20:33 Dose: 20 mg Documented By: LIONEL Fentanyl (Fentanyl Citrate/Pf 100 Mcg/2 Ml Vial) 25 mcg IVPUSH Q5M PRN; Protocol PRN Reason: Pain, Moderate(Pain Scale 4-6) Finasteride (Finasteride 5 Mg Tablet) 5 mg PO DAILY [facility] Last Admin: 11/11/22 08:24 Dose: 5 mg Documented By: OMKAR Folic Acid (Folic Acid 1 Mg Tablet) 1 mg PO DAILY [facility] Last Admin: 11/11/22 08:24 Dose: 1 mg Documented By: OMKAR Hydromorphone HCl (Hydromorphone Hcl 0.5 Mg/0.5 Ml Syringe) 0.25 mg IVPUSH Q5M PRN; Protocol PRN Reason: Pain, Severe (Pain Scale 7-10) Lactated Ringer's (Lr) 1,000 mls @ 50 mls/hr IVCONT .Q20H [facility] Last Admin: 11/12/22 05:31 Dose: 50 mls/hr Documented By: LIONEL Melatonin (Melatonin 3 Mg Tablet) 6 mg PO BEDTIME PRN PRN Reason: Insomnia Last Admin: 11/11/22 21:40 Dose: 6 mg Documented By: LIONEL Methotrexate (Methotrexate Sodium 2.5 Mg Tablet) 10 mg PO SA [facility] Last Admin: 11/11/22 08:40 Dose: 10 mg Documented By: OMKAR Morphine Sulfate (Morphine Sulfate 4 Mg/Ml Cartridge) 4 mg IVPUSH Q4H PRN; Protocol PRN Reason: Pain, Severe (Pain Scale 7-10) Last Admin: 11/12/22 05:36 Dose: 4 mg Documented By: LIONEL Multivitamins/Vitamin C (Multivitamin Tablet) 1 tab PO DAILY [facility] Last Admin: 11/11/22 08:24 Dose: 1 tab Documented By: OMKAR Ondansetron HCl (Ondansetron Hcl 4 Mg/2 Ml Vial) 4 mg IVPUSH Q8H PRN PRN Reason: Nausea and Vomiting Last Admin: 11/09/22 18:35 Dose: 4 mg Documented By: CARLOS Ondansetron HCl (Ondansetron Hcl 4 Mg/2 Ml Vial) 4 mg IVPUSH ONCE PRN PRN Reason: Nausea and Vomiting Promethazine HCl (Promethazine Hcl 25 Mg Tablet) 25 mg PO Q6H PRN PRN Reason: Nausea Last Admin: 11/08/22 11:39 Dose: 25 mg Documented By: MIHAI Sodium Chloride (0.9 % Sodium Chloride Flush 3 Ml Syringe) 3 ml IVFLUSH QSHIFT [facility] Last Admin: 11/11/22 23:03 Dose: Not Given Documented By: LIONEL Non-Admin Reason: IV Running Labs 11/10/22 09:44 11/10/22 09:41 Assessment and Plan (1) Right femoral fracture: Status: Acute Plan 87-year-old male with pertinent history of AFib on Eliquis, BPH, GERD, prostate cancer who presents to the emergency department for evaluation after a fall and found to have righ hip fracture # Right femoral fracture due to mechanical fall, surgery delayed d/t eliquis, hip repaired o 11/10 and doing well post op. PT assessments, pain management and eliquis for dvt prevention, out of bed to chair # Paroxysmal atrial fibrillation on anticoagulation. rate controlled. Hold anticoagulation for surgery, continue eliquis today # Gastroesophageal reflux disease: famotidine # BPH on finasteride DVT prophylaxis: eliquis, compression device Full Code. need for inpat: s/p hip repair Time Spent With Patient Time: Total time managing care of this patient today ____ minutes. Quality Stroke Does the patient have a stroke diagnosis?: No VTE Prior VTE?: No VTE Risk Level:: Medical - moderate - high VTE Device Contraindication: Treatment Not Indicated VTE Drug Contraindication: Treatment Not Indicated
[2022-11-12] MEDS: Apixaban 2.5 MG TABLET PO ×2 (08:20→20:06)
[2022-11-12] MEDS: Famotidine 20 MG TABLET PO ×2 (08:20→20:06)
[2022-11-12] MEDS: Multivitamin TABLET 1 TAB PO (08:20)
[2022-11-12] MEDS: Folic Acid 1 MG TABLET PO (08:20)
--- NOTE | 2022-11-12 10:32 | PC.NURSE ---
Domínguez Catheter discontinued at 10:30am for 500cc of clear yellow urine
--- NOTE | 2022-11-12 12:19 | PC.NURSE ---
Patient out of bed to chair with two assist and walker at 10:15am. Pre medicated with MS at 9:40am. Patient tolerated move to chair well.
[2022-11-12] MEDS: 0.9 % Sodium Chloride Flush 3 ML SYRINGE IVFLUSH ×2 (18:17→20:07)
--- NOTE | 2022-11-12 19:43 | PM.PNORT ---
Subjective Subjective Date of Service: 11/12/22 Interval history: POD 2 s/p RT femur IMN no overnight events resting in recliner, states his hip feels better today denies cp.palpitations sob Physical Exam Vital Signs: Vital Signs: Last Vital Signs Temp 97.6 F 11/12/22 15:36 Pulse 103 H 11/12/22 15:36 Resp 20 11/12/22 15:36 BP 115/59 L 11/12/22 15:36 Pulse Ox 96 11/12/22 15:36 O2 Del Method Room Air 11/12/22 15:36 BMI result Body Mass Index 24.5 Const: General: cooperative, healthy appearing and no acute distress Resp: Effort & Inspection: normal respiratory effort and able to speak in complete sentences Cardio: Rate: regular rate Peripheral pulses: Peripheral pulses 2+ throughout GI: Palpation (GI): Soft to palpation Skin: General skin exam: no rashes or lesions noted Extrem: Other: right hip bandage, c/d/i. He is able to plantar and dorsi flex, NVI Procedures Date of Service Date of Service: 11/12/22 Progress Note: A&P Assessment and plan (1) Fracture, intertrochanteric, right femur: Status: Acute Assessment and Plan: pain mgmnt resume eliquis Pt/OT-wbat dispo pending PT eval Time Spent With Patient Time: Total time managing care of this patient today ____ minutes. Quality Stroke Does the patient have a stroke diagnosis?: No VTE Prior VTE?: No VTE Risk Level:: Medical - moderate - high VTE Device Contraindication: Treatment Not Indicated VTE Drug Contraindication: Treatment Not Indicated
[2022-11-12] MEDS: Melatonin 3 MG TABLET 6 MG PO (22:53)
[2022-11-12] MEDS: Morphine Sulfate 2 MG/ML CARTRIDGE IVPUSH (22:53)
[2022-11-13] MEDS: Morphine Sulfate 2 MG/ML CARTRIDGE IVPUSH ×3 (03:10→12:02)
[2022-11-13 03:47] VITALS: BP 138/66; PULSE 89; RESP 17; TEMP 36.4; O2SAT 97
[2022-11-13] MEDS: Apixaban 2.5 MG TABLET PO (07:43)
[2022-11-13] MEDS: Folic Acid 1 MG TABLET PO (07:43)
[2022-11-13] MEDS: Multivitamin TABLET 1 TAB PO (07:43)
[2022-11-13] MEDS: Famotidine 20 MG TABLET PO (07:43)
[2022-11-13] MEDS: Finasteride 5 MG TABLET PO (07:43)
[2022-11-13] MEDS: 0.9 % Sodium Chloride Flush 3 ML SYRINGE IVFLUSH (07:44)
[2022-11-13 08:00] VITALS: BP 121/68; PULSE 86; RESP 16; TEMP 36.2; O2SAT 99
--- NOTE | 2022-11-13 08:15 | P.PNIM_ITS ---
Subjective Subjective Date of Service: 11/13/22 Interval History: s/p hip repair, he is making progress. Pain is controlled. Physical Exam 2 Vital Signs: Vital Signs: Last Vital Signs Temp 97.6 F 11/13/22 03:47 Pulse 89 11/13/22 03:47 Resp 17 11/13/22 03:47 BP 138/66 11/13/22 03:47 Pulse Ox 97 11/13/22 03:47 O2 Del Method Room Air 11/13/22 03:47 BMI result Body Mass Index 24.5 Const: Other: General: AO X 3, no acute distress Resp: CTA bilateral CVS: S1,S2,RRR GI: +BS, NT, no distention Skin: No rash, hip dressing c/d/i Neuro: motor grossly intact Psych: appropriate affect Objective Data Active Medications Acetaminophen (Acetaminophen Supp 650 Mg Supp.Rect) 650 mg [place] Q6H PRN PRN Reason: Pain, Mild (Pain Scale 1-3) Acetaminophen (Acetaminophen 325 Mg Tablet) 650 mg PO Q6H PRN PRN Reason: Pain, Mild (Pain Scale 1-3) Last Admin: 11/12/22 20:06 Dose: 650 mg Documented By: OZORALB Apixaban (Apixaban 2.5 Mg Tablet) 2.5 mg PO BID [facility] Last Admin: 11/13/22 07:43 Dose: 2.5 mg Documented By: ISAAK Famotidine (Famotidine 20 Mg Tablet) 20 mg PO BID [facility] Last Admin: 11/13/22 07:43 Dose: 20 mg Documented By: ISAAK Fentanyl (Fentanyl Citrate/Pf 100 Mcg/2 Ml Vial) 25 mcg IVPUSH Q5M PRN; Protocol PRN Reason: Pain, Moderate(Pain Scale 4-6) Finasteride (Finasteride 5 Mg Tablet) 5 mg PO DAILY [facility] Last Admin: 11/13/22 07:43 Dose: 5 mg Documented By: ISAAK Folic Acid (Folic Acid 1 Mg Tablet) 1 mg PO DAILY [facility] Last Admin: 11/13/22 07:43 Dose: 1 mg Documented By: ISAAK Hydromorphone HCl (Hydromorphone Hcl 0.5 Mg/0.5 Ml Syringe) 0.25 mg IVPUSH Q5M PRN; Protocol PRN Reason: Pain, Severe (Pain Scale 7-10) Melatonin (Melatonin 3 Mg Tablet) 6 mg PO BEDTIME PRN PRN Reason: Insomnia Last Admin: 11/12/22 22:53 Dose: 6 mg Documented By: SEVERINOORALB Methotrexate (Methotrexate Sodium 2.5 Mg Tablet) 10 mg PO SA [facility] Last Admin: 11/11/22 08:40 Dose: 10 mg Documented By: OMKAR Morphine Sulfate (Morphine Sulfate 2 Mg/Ml Cartridge) 2 mg IVPUSH Q4H PRN; Protocol PRN Reason: Pain, Severe (Pain Scale 7-10) Last Admin: 11/13/22 07:44 Dose: 2 mg Documented By: ISAAK Multivitamins/Vitamin C (Multivitamin Tablet) 1 tab PO DAILY [facility] Last Admin: 11/13/22 07:43 Dose: 1 tab Documented By: ISAAK Ondansetron HCl (Ondansetron Hcl 4 Mg/2 Ml Vial) 4 mg IVPUSH Q8H PRN PRN Reason: Nausea and Vomiting Last Admin: 11/09/22 18:35 Dose: 4 mg Documented By: CARLOS Ondansetron HCl (Ondansetron Hcl 4 Mg/2 Ml Vial) 4 mg IVPUSH ONCE PRN PRN Reason: Nausea and Vomiting Promethazine HCl (Promethazine Hcl 25 Mg Tablet) 25 mg PO Q6H PRN PRN Reason: Nausea Last Admin: 11/08/22 11:39 Dose: 25 mg Documented By: MIHAI Sodium Chloride (0.9 % Sodium Chloride Flush 3 Ml Syringe) [facility] Last Admin: 11/13/22 07:44 Dose: 3 ml Documented By: ISAAK Labs 11/10/22 09:44 11/10/22 09:41 Assessment and Plan (1) Right femoral fracture: Status: Acute Plan 87-year-old male with pertinent history of AFib on Eliquis, BPH, GERD, prostate cancer who presents to the emergency department for evaluation after a fall and found to have righ hip fracture # Patient sustained a mechanical fall and sustained right femoral fracture. Surgery was delayed due to eliquis. Hip repair was done on 11/10 and he is doing well post operatively. His pain is controlled. PT has been working with him. He will need STR. He has been restarted on eliquis for DVT prevention. # Paroxysmal atrial fibrillation, his rate is cotnrolled and to continue. continue Eliquis # Gastroesophageal reflux disease: famotidine # history Rheumatoid Arthiritis (RA)--Methotrexate # BPH on finasteride DVT prophylaxis: eliquis, compression device Full Code. need for inpat: s/p hip repair, awaiting rehab placment. Time Spent With Patient Time: Total time managing care of this patient today ____ minutes. Quality Stroke Does the patient have a stroke diagnosis?: No VTE Prior VTE?: No VTE Risk Level:: Medical - moderate - high VTE Device Contraindication: Treatment Not Indicated VTE Drug Contraindication: Treatment Not Indicated
--- NOTE | 2022-11-13 08:39 | PM.PNORT ---
Subjective Subjective Date of Service: 11/13/22 Interval history: POD 3 s/p RT femur IMN no overnight events resting in bed, states his hip feels better today still having soreness denies cp.palpitations sob Physical Exam Vital Signs: Vital Signs: Last Vital Signs Temp 97.1 F 11/13/22 08:00 Pulse 86 11/13/22 08:00 Resp 16 11/13/22 08:00 BP 121/68 11/13/22 08:00 Pulse Ox 99 11/13/22 08:00 O2 Del Method Room Air 11/13/22 08:00 BMI result Body Mass Index 24.5 Const: General: cooperative, healthy appearing and no acute distress Resp: Effort & Inspection: normal respiratory effort and able to speak in complete sentences Cardio: Rate: regular rate Peripheral pulses: Peripheral pulses 2+ throughout GI: Palpation (GI): Soft to palpation Skin: General skin exam: no rashes or lesions noted Extrem: Other: right hip bandage, c/d/i. He is able to plantar and dorsi flex, NVI Procedures Date of Service Date of Service: 11/13/22 Progress Note: A&P Assessment and plan (1) Fracture, intertrochanteric, right femur: Status: Acute Assessment and Plan: pain mgmnt continue eliquis Pt/OT-wbat dispo pending - PT, rehab placement Time Spent With Patient Time: Total time managing care of this patient today ____ minutes. Quality Stroke Does the patient have a stroke diagnosis?: No VTE Prior VTE?: No VTE Risk Level:: Medical - moderate - high VTE Device Contraindication: Treatment Not Indicated VTE Drug Contraindication: Treatment Not Indicated
[2022-11-13 08:57] LABS: Hematocrit 26.6 % (42.0-52.0); Hemoglobin 8.7 g/dl (14.0-18.0); Mean Corpuscular HGB Conc 32.7 g/dl (31.0-36.0); Mean Corpuscular Hemoglobin 32.2 pg (27.0-33.0); Mean Corpuscular Volume 98.5 fL (80.0-98.0); Mean Platelet Volume 10.4 fL (9.4-12.4); Platelet Count 206 X10*3/uL (160-400); Red Cell Distribution Width 13.7 % (11.0-16.0)
[2022-11-13 09:16] LABS: Anion Gap 6 (12-20); Blood Urea Nitrogen 27 mg/dL (9-16); Calcium 8.6 mg/dL (8.4-10.2); Carbon Dioxide 29 mmol/L (22-29); Chloride 104 mmol/L (96-108); Creatinine Clr Calc Pharmacy 50.9; Estimated Glomerular Filt Rate > 60; Glucose Random 102 mg/dL (60-115); Potassium 3.7 mmol/L (3.3-5.1); Sodium 135 mmol/L (135-145)
--- NOTE | 2022-11-13 10:38 | MHC.CM.PN ---
pt will be dcd at 12:340 to violeta cardona and pt notified of dc
--- NOTE | 2022-11-13 10:38 | PM.DS ---
DS: Providers Provider Date of Service: 11/13/22 Date of admission: 11/07/22 21:00 Primary care physician: Suman Sahu MD Consults: 11/07/22 21:10 Consult to Orthopedics Routine Consulting Provider: [facility] Reason for consultation: Femur fracture DS: Diagnosis Discharge Diagnosis (1) Fracture, intertrochanteric, right femur: Status: Acute DS: Summary Hospital Course Hospital Course: Chief Complaint: Fall This is a 87-year-old male with pertinent history of AFib on Eliquis, BPH, gastroesophageal reflux disease, prostate cancer, rheumatoid arthritis who presents to the emergency department for evaluation after a fall. Patient states that he went to see Sophia Search [facility]in of [facility] on [facility] on the day of presentation. Patient tried to play basketball, his shoes got stuck and tripped. He fell to his right side and had difficulty getting up. Had right lower extremity pain after the fall. No chest pain or palpitations prior to the fall. No loss of consciousness prior to the fall. No rhythmic jerking movement of extremities. Unable to bear weight on his right lower extremity due to the pain. He denies fever, chills, chest discomfort, palpitations, shortness of breath, abdominal pain, changes in urinary or bowel habits. In the emergency department, imaging concerning for femoral fracture. Orthopedic surgery was consulted requested admissio Hospital course: # Patient sustained a mechanical fall and sustained right femoral fracture. Surgery was delayed due to eliquis. Hip repair was done on 11/10 and he is doing well post operatively. His pain is controlled. PT has been working with him. He will need STR. He has been restarted on eliquis for DVT prevention. # Paroxysmal atrial fibrillation, his rate is cotnrolled and to continue. continue Eliquis # Gastroesophageal reflux disease: famotidine # history Rheumatoid Arthiritis (RA)--Methotrexate #Anemia--related to hip fracture, dilution, monitor, no indication for transfusion at this time # BPH on finasteride Time Spent with Patient Time attestation: Total time managing care of this patient today ____ minutes. Discharge coordination time: Greater than 30 minutes Quality: Safe Use of Opioids Does Pt have an Active Cancer Diagnosis on the Problem List?: No Quality: Stroke Does the patient have a stroke diagnosis?: No Physical Exam Vital Signs: Vital Signs: Last Vital Signs Temp 97.1 F 09/18/23 08:00 Pulse 86 11/13/22 08:00 Resp 16 11/13/22 08:00 BP 121/68 11/13/22 08:00 Pulse Ox 99 11/13/22 08:00 O2 Del Method Room Air 11/13/22 08:00 BMI result Body Mass Index 24.5 DS: Data Data Completed and Pending Labs on day of discharge: Laboratory Results - last 24 hr 11/13/22 08:41 WBC 7.0 RBC 2.70 L D Hgb 8.7 L D Hct 26.6 L D MCV 98.5 H MCH 32.2 MCHC 32.7 RDW 13.7 Plt Count 206 MPV 10.4 Absolute Nucleated RBC 0.000 Nucleated RBC % (auto) 0.0 Sodium 135 Potassium 3.7 Chloride 104 Carbon Dioxide 29 Anion Gap 6 L BUN 27 H Creatinine 1.04 Estim Creat Clear Calc 50.9 Estimated GFR > 60 Random Glucose 102 Calcium 8.6 Discharge Plan Discharge Anticipated Discharge Date/Time: 11/13/22 10:42 Patient Disposition: Xfer SNF Discharge Diagnosis: Hip fracture Referrals: [facility] [Other] - 1 Week Suman Sahu MD [Primary Care Provider] - 1 Week Cyndi Núñez PA-C [Physician Special Delivery Clerk] - 2 Weeks (02/05/23 12:45 [facility] Cyndi Núñez PA-C) Discharge Medications: New oxycodone 5 mg tablet 5 mg PO Q6H PRN (Reason: pain (scale score 7-10)) Qty: 20 0RF Rx Instructions: Partial Fill upon patient request. Continued Eliquis 2.5 mg tablet 2.5 mg PO BID 90 Days Qty: 180 3RF melatonin 5 mg Tablet 5 mg PO BEDTIME PRN (Reason: Insomnia) multivitamin Tablet 1 tab PO DAILY famotidine 20 mg tablet 20 mg PO BEDTIME methotrexate sodium 2.5 mg tablet 10 mg PO SA finasteride 5 mg tablet 5 mg PO DAILY 90 Days Qty: 90 1RF folic acid 1 mg tablet 1 mg PO DAILY Discharge Orders: Discharge Order (Routine); Ordered 11/13/22 Ordered By: [facility] Diet: Advance to usual diet Activity on Discharge: As tolerated Stand Alone Forms: Patient Portal Discharge page Care Plan Goals: recovery from hip fracture and hip surgery Health Concerns: hip fracture Plan of Treatment: Gait training, strengthening, ADLs Continue Eliquis Keep dressing clean,dry and intact-no showering or tub baths Follow up with Orthopedics in 2 weeks [facility] in 2 days Assessment: as above
--- NOTE | 2022-11-14 09:42 | P.OP_ITS ---
Operative Note Operative Note Date of Service: 11/10/22 Narrative: Date of Service: 11/10/22 Pre-op diagnosis: right intertrochanteric hip fracture Post-op diagnosis: same Procedure: Right hip IMN Implants: Dm [id number] 125 deg with 95 mm hip screw and 50 mm distal interlock Surgeon: Bill Vidal MD Anesthesia: GETA and local Was an Distribution [employer] Associate used for this Procedure?: No Estimated blood loss (mL): 75 IV fluids (mL): 700 Pathology: none sent Condition: stable Disposition: PACU Procedure in detail: Patient was brought to the operating room and prepped and draped in standard sterile fashion. Time-out was called to identify proper site procedure proper surgeon and IV antibiotics per weight were administered. He was positioned on the fracture table and a traction and slight internal rotation were performed and biplanar fluoroscopy confirmed initial fracture reduction. I then made a stab incision proximal to the greater trochanter in using a guidewire made a entry point just lateral to the tip of the greater trochanter and placed a guidewire into the femoral metadiaphysis. I then over-reamed with 15 mm Reamer placed my ball-tip guidewire down distally in the femur. This was a minimally displaced intertrocha nd the decision was made to place a 180x 11 mm nail. The nail was impacted in place. I turned my attention to the hip screw where I used a guidewire and a tip apex distance of less than 1.5 measured my hip screw. I then pre drilled and placed a 95mm hip screw using biplanar fluoroscopy. Once I was satisfied with the position of the hip screw I turned my attention to the distal aspect of the nail. Using the static hole I placed 1 50mm distal interlocking screw in standard AO technique. I then removed all I then placed my set screw proximally and removed all extraneous instrumentation. Final biplanar radiographs were taken. I was satisfied with the position of the hardware and the fracture reduction. I copiously irrigated closed with absorbable sutures yony and injected 30 mL of into the area of the incisions. Traction was let down patient was placed in sterile dressing awakened from anesthesia brought to recovery room stable condition there were no known complications.
== END 2022-11-13 12:58 | disposition skilled nursing facility (03) | DRG 482 ==
LOC: HO.ED 21:01 → HO.EDOVER 21:07 → HO.S3 22:16
PROVIDERS: Orthopaedic Surgery; Physician Assistant; Admitting Provider Student in an Organized Health Care Education/Training Program; Emergency Provider Emergency Medicine; PCP Internal Medicine; Visit Provider Internal Medicine
PROC: 0QS636Z Reposition Right Upper Femur with Intramedullary Internal Fixation Device, Percutaneous Approach (ICD-10-PCS; principal; 2022-11-10 13:20)
DX: S72.141A Displaced intertrochanteric fracture of right femur, initial encounter for closed fracture (principal); M06.9 Rheumatoid arthritis, unspecified; I48.0 Paroxysmal atrial fibrillation; K21.9 Gastro-esophageal reflux disease without esophagitis; N40.0 Benign prostatic hyperplasia without lower urinary tract symptoms; I48.91 Unspecified atrial fibrillation; Z20.822 Contact with and (suspected) exposure to COVID-19; W19.XXXA Unspecified fall, initial encounter; Y93.67 Activity, basketball; Z87.891 Personal history of nicotine dependence; Z79.01 Long term (current) use of anticoagulants; Z79.631 Long term (current) use of antimetabolite agent; Z79.899 Other long term (current) drug therapy
CPT/HCPCS: 36415; 70450; 72125; 73502; 73552; 80048; 80053; 85025; 85027; 85610; 85730; 86850; 86900; 86901; 87635; 93005; 97116; 97161; 97166; 97530; 99285; C1713; C1758; C1769; J0131; J0690; J1100; J1170; J2270; J2405; J2795; J3010

== ENCOUNTER → 2022-11-07 21:00 | Outpatient (BNV) | payer MEDICARE, OTHER, SELFPAY | PROVIDERS: Admitting Provider Student in an Organized Health Care Education/Training Program; Emergency Provider Emergency Medicine; PCP Internal Medicine; Visit Provider Physician Assistant | DX: S72.91XA Unspecified fracture of right femur, initial encounter for closed fracture (principal); I48.19 Other persistent atrial fibrillation | CPT/HCPCS: 27245; 99024; 99221; 99499 ==

== ENCOUNTER → 2022-11-07 21:00 | Outpatient (BNV) | payer MEDICARE, OTHER, SELFPAY | PROVIDERS: Admitting Provider Student in an Organized Health Care Education/Training Program; Emergency Provider Emergency Medicine; PCP Internal Medicine; Visit Provider Student in an Organized Health Care Education/Training Program | DX: S72.141A Displaced intertrochanteric fracture of right femur, initial encounter for closed fracture (principal) | CPT/HCPCS: 99222; 99232; 99239 ==

== ENCOUNTER 2022-11-23 09:26 | Outpatient (REF) | payer MEDICARE, OTHER, SELFPAY ==
--- NOTE | ~2022-11-23 | XR_ITS ---
EXAMINATION: XR FEMUR, RIGHT CLINICAL INFORMATION: Displaced intertrochanteric fracture right femur. COMPARISON: X-ray of the right hip and pelvis 11/07/2022, intraoperative imaging 11/10/2022. TECHNIQUE: AP and lateral views of the right femur were obtained. FINDINGS: Proximal ivsi and screw fixation remain in place unchanged compared with the intraoperative imaging, crossing the previously noted intertrochanteric fracture. Alignment and appearance unchanged. Chronic cortical or periosteal thickening throughout the femur of uncertain etiology and significance. Surgical clips overlie the lateral aspect of the proximal thigh. No change. XR/XR femur RT 2V IMPRESSION: Stable postop appearance of the right femur compared with the intraoperative imaging of 11/07/2022. Chronic cortical or periosteal thickening throughout the femur.
== END 2022-11-23 09:27 | disposition home or self-care (01) ==
LOC: HO.HOSX 09:26
PROVIDERS: Visit Provider Physician Assistant
DX: S72.141A Displaced intertrochanteric fracture of right femur, initial encounter for closed fracture (principal); X58.XXXA Exposure to other specified factors, initial encounter; Y93.9 Activity, unspecified; Y92.9 Unspecified place or not applicable; Y99.9 Unspecified external cause status
CPT/HCPCS: 73552

== ENCOUNTER 2022-11-24 10:39 | Outpatient (AMB) | payer MEDICARE, OTHER, SELFPAY ==
--- NOTE | 2022-11-24 11:06 | MHC.OFFVIS ---
Intake Intake Visit Reasons: PO-f/u rt IM Nail-DOS 11/10/22 Allergies No Known Allergies Allergy (Verified 11/10/22 12:43) HPI PO-f/u rt IM Nail-DOS 11/10/22 HPI Details 87-year-old male who presents in the office today 2 weeks status post right hip IM nailing, which was performed on 11/10/[address] Vidal. He reports he is doing good. He states the marry are bothering him a little today. He confirms he has been ambulating with the assistance of a walker. He would like to know when he can return [facility] [employer] He is accompanied in the office today by his daughter. He reports the rehab is planning on discharging him on 12/05, but there is a possibility he will get to go home earlier. 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 Mother No problems noted. Social History Household Members: None Housing: House Are you a primary intensive care nurse to a significant other at home: No Do you presently have visiting nurse or other home services: No Patient Tobacco Use Status: Former Tobacco user Quit Date: 60 years ago Tobacco use type: Cigarette service: Yes Current occupational status: retired Current occupation: rt handed Review of Systems Const All systems reviewed & are unremarkable except as noted in HPI and below Physical Exam Const General: cooperative, healthy appearing and no acute distress Resp Effort & Inspection: normal respiratory effort and able to speak in complete sentences Cardio Rate: regular rate Peripheral pulses: Peripheral pulses 2+ throughout GI Palpation (GI): Soft to palpation Skin Lesions: no lesions Rashes: no rashes Extrem Other: Right hip: Incision sites is clean, dry, and intact. No surrounding erythema or drainage. No signs of infection. Marry intact. Able to perform hip flexion, extension, internal and external rotation with mild discomfort. NVI. Assessment & Plan Assessment & Plan (1) Fracture, intertrochanteric, right femur: Comment: status post right hip IM nailing 11/10/2022 Dr. Vidal Code(s): S72.141A - Displaced intertrochanteric fracture of right femur, initial encounter for closed fracture Qualifiers: Encounter type: subsequent encounter Fracture alignment: nondisplaced Fracture healing: with routine healing Fracture type: closed Qualified Code(s): S72.144D - Nondisplaced intertrochanteric fracture of right femur, subsequent encounter for closed fracture with routine healing Plan Mr. Disla is an 87-year-old male who presents in the office today 2 weeks status post right hip IM nailing, which was performed on 11/10/[address] Vidal. He reports he is doing good. He states the marry are bothering him a little today. He confirms he has been ambulating with the assistance of a walker. He would like to know when he can return to [employer]. He is accompanied in the office today by his daughter. He reports the rehab is planning on discharging him on 12/05, but there is a possibility he will get to go home earlier. Marry were removed and steri-stripes were applied while in the office today. The steri-stripes will remain in place for one week until they fall off on their own. He is able to take a shower tomorrow, 11/25/2022. He was educated that he is able to lay on that side when he is trying to sleep. He will continue to work with the rehab physical therapy for glute, core, quad strengthening and gate training. Follow up will be in 4 weeks with x-rays, or sooner if needed. X-rays of the right hip obtained while in the office today and reviewed by me, Betty Rashid PA-C, revealed orthopedic hardware intact with routine healing. Orders: Orders XR femur RT 2V Today S72.141A - Displaced intertrochanteric fracture of right femur, initial encounter for closed fracture Patient Instructions: Scribed for Betty Rashid PA-C by Jessica Garcia rn medical inpatient services, on 11/24/2022 at 10:45 am, EST. Coding Level of Care Code Global (29821) Diagnoses Closed nondisplaced intertrochanteric fracture of right femur with routine healing, subsequent encounter S72.144D Encounter type: subsequent encounter Fracture alignment: nondisplaced Fracture healing: with routine healing Fracture type: closed
== END 2022-11-24 11:22 | disposition home or self-care (01) ==
PROVIDERS: PCP Internal Medicine; Visit Provider Physician Assistant
DX: S72.144D Nondisplaced intertrochanteric fracture of right femur, subsequent encounter for closed fracture with routine healing (principal)
CPT/HCPCS: 99024

== ENCOUNTER → 2022-11-24 10:39 | Outpatient (BNVA) | payer MEDICARE, OTHER, SELFPAY | PROVIDERS: PCP Internal Medicine; Visit Provider Physician Assistant | DX: S72.141A Displaced intertrochanteric fracture of right femur, initial encounter for closed fracture (principal) ==

== ENCOUNTER 2022-12-14 10:33 | Outpatient (REF) | payer MEDICARE, OTHER, SELFPAY ==
[2022-12-14 13:11] LABS: MANUAL DIFF FLAG NO
[2022-12-14 13:36] LABS: Appearance Urine Clear; Color Urine Yellow; Glucose Urine UA Negative (Negative); Leukocyte Esterase Urine Negative (Negative); Nitrite Urine Negative (Negative); PH 6.5 (5.0-9.0); UMIC TRIGGER UACC YES; Urine Blood Trace (Negative); Urine Ketones Negative (Negative); Urine Protein 30 (1+) mg/dL (Neg-Trace)
[2022-12-14 13:38] LABS: Basophils Percent Auto 0.5 % (0-2); Eosinophils Percent Auto 0.6 % (0-4); Hematocrit 35.3 % (42.0-52.0); Hemoglobin 11.9 g/dl (14.0-18.0); Imm Gran Abs Auto 0.03 X10*3/uL (0.00-0.03); Imm Gran Pct Auto 0.5 % (0.0-0.4); Lymphocytes Absolute Auto 0.5 X10*3/uL (1.2-4.9); Lymphocytes Percent Auto 7.2 % (20-40); Mean Corpuscular HGB Conc 33.7 g/dl (31.0-36.0); Mean Corpuscular Hemoglobin 32.1 pg (27.0-33.0); Mean Corpuscular Volume 95.1 fL (80.0-98.0); Mean Platelet Volume 10.5 fL (9.4-12.4); Monocytes Absolute Auto 0.7 X10*3/uL (0.1-1.2); Monocytes Percent Auto 10.6 % (2-11); Neutrophils Absolute Auto 5.2 x10*3/uL (2.0-8.3); Neutrophils Percent Auto 80.6 % (45-73); Platelet Count 233 X10*3/uL (160-400); Red Blood Count 3.71 X10*6/uL (4.60-5.80); White Blood Count 6.4 X10*3/uL (4.8-10.8)
[2022-12-14 13:41] LABS: Bacteria Urine None Seen (None Seen); Hyaline Casts Urine 0-2 /LPF (0-2); Squamous Epithelial Cell Urine 0-2 /HPF (0-2); WBC Urine 0-5 /HPF (0-5)
[2022-12-14 14:10] LABS: Anion Gap 14 (12-20); Blood Urea Nitrogen 15 mg/dL (9-16); C Reactive Protein 1.74 mg/dL (< or = 0.50); Calcium 9.8 mg/dL (8.4-10.2); Carbon Dioxide 24 mmol/L (22-29); Chloride 101 mmol/L (96-108); Estimated Glomerular Filt Rate 57; Glucose Random 118 mg/dL (60-115); Potassium 3.8 mmol/L (3.3-5.1); Sodium 135 mmol/L (135-145)
== END 2022-12-14 10:34 | disposition home or self-care (01) ==
LOC: HO.10HDL 10:33
PROVIDERS: Visit Provider Internal Medicine
DX: D64.9 Anemia, unspecified (principal); I48.91 Unspecified atrial fibrillation; Z91.81 History of falling; R82.90 Unspecified abnormal findings in urine
CPT/HCPCS: 36415; 80048; 81001; 82550; 85025; 86140; 87086

== ENCOUNTER 2022-12-21 12:02 | Outpatient (REF) | payer MEDICARE, OTHER, SELFPAY ==
--- NOTE | ~2022-12-21 | XR_ITS ---
EXAMINATION: XR FEMUR, RIGHT CLINICAL INFORMATION: Displaced intertrochanteric fracture of right femur COMPARISON: 11/27/2022, 11/11/2022 TECHNIQUE: AP and lateral views of the right femur, 5 views total. FINDINGS: Status post ORIF with redemonstration of proximal ivis and screw fixation device traversing the previously identified right hip fracture. Hardware appears intact. Diffuse chronic cortical or. periosteal thickening redemonstrated along the femur of uncertain etiology. Limited visualization due to body habitus. Surgical yony have been removed. XR/XR femur RT 2V IMPRESSION: IMPRESSION: Status post ORIF. Hardware appears intact. Diffuse chronic cortical or. periosteal thickening redemonstrated along the femur of uncertain etiology.
== END 2022-12-21 12:03 | disposition home or self-care (01) ==
LOC: HO.HOSX 12:02
PROVIDERS: Visit Provider Physician Assistant
DX: S72.114D Nondisplaced fracture of greater trochanter of right femur, subsequent encounter for closed fracture with routine healing (principal)
CPT/HCPCS: 73552

== ENCOUNTER 2022-12-21 12:26 | Outpatient (AMB) | payer MEDICARE, OTHER, SELFPAY ==
--- NOTE | 2022-12-21 12:43 | MHC.OFFVIS ---
Intake Intake Visit Reasons: PO-f/u rt IM Nail-DOS 11/10/22 Intake Note: Matthew 87 yr old male presents today for his PO rt IM Nail-DOS 11/10/22. Patient states he is doing well. Patient would like to know when he will be able to drive. Allergies No Known Allergies Allergy (Verified 12/21/22 12:47) HPI PO-f/u rt IM Nail-DOS 11/10/22 HPI Details 87-year-old male who presents in the office today 1 month status post right hip IM nailing, which was performed on 11/10/[address] Vidal. The patient reports he is doing well. He would like to know when he is able to drive. He reports he was discharged from occupational therapy due to meeting all goals. He is ambulating with a cane. 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 Mother No problems noted. Social History Household Members: None Housing: House Are you a primary managed care analyst to a significant other at home: No Do you presently have visiting nurse or other home services: No Patient Tobacco Use Status: Former Tobacco user Quit Date: 60 years ago Tobacco use type: Cigarette service: Yes Current occupational status: retired Current occupation: rt handed Review of Systems Const All systems reviewed & are unremarkable except as noted in HPI and below Physical Exam Const General: cooperative, healthy appearing and no acute distress Resp Effort & Inspection: normal respiratory effort and able to speak in complete sentences Cardio Rate: regular rate Peripheral pulses: Peripheral pulses 2+ throughout GI Palpation (GI): Soft to palpation Skin Lesions: no lesions Rashes: no rashes Extrem Other: Right hip: Incision site is clean, dry, and intact; completely healed. No signs of infection. Full hip ROM in all planes. No tenderness to palpation over the greater trochanteric bursa. 5/5 strength with resisted hip flexion, knee extension, abduction, and abduction. Able to perform straight leg raise. NVI. Assessment & Plan Assessment & Plan (1) Fracture, intertrochanteric, right femur: Comment: status post right hip IM nailing 11/10/2022 Dr. Vidal Code(s): S72.141A - Displaced intertrochanteric fracture of right femur, initial encounter for closed fracture Qualifiers: Encounter type: subsequent encounter Fracture alignment: nondisplaced Fracture healing: with routine healing Fracture type: closed Qualified Code(s): S72.144D - Nondisplaced intertrochanteric fracture of right femur, subsequent encounter for closed fracture with routine healing Plan Mr. Disla is an 87-year-old male who presents in the office today 1 month status post right hip IM nailing, which was performed on 11/10/[address] Vidal. The patient reports he is doing well. He would like to know when he is able to drive. The patient may return to normal activities as tolerated. He has his last occupational therapy session tomorrow, 12/22/2022. After this he has been discharged from occupational therapy because he is doing amazing. Follow up will be in 3 months for repeat x-rays to ensure healing is still occurring, or sooner if needed. X-rays of the right hip obtained while in the office today and reviewed by me, Betty Rashid PA-C, revealed intact orthopedic hardware with routine healing. Orders: Orders XR femur RT 2V Today S72.141A - Displaced intertrochanteric fracture of right femur, initial encounter for closed fracture Patient Instructions: Scribed for Betty Rashid PA-C by Jessica Garcia medical records coder, on 12/21/2022 at 12:28 pm, EST. Coding Level of Care Code Global (80866) Diagnoses Closed nondisplaced intertrochanteric fracture of right femur with routine healing, subsequent encounter S72.144D Encounter type: subsequent encounter Fracture alignment: nondisplaced Fracture healing: with routine healing Fracture type: closed
== END 2022-12-21 14:09 | disposition home or self-care (01) ==
PROVIDERS: PCP Internal Medicine; Visit Provider Physician Assistant
DX: S72.144D Nondisplaced intertrochanteric fracture of right femur, subsequent encounter for closed fracture with routine healing (principal)
CPT/HCPCS: 99024

== ENCOUNTER 2023-02-05 12:31 | Outpatient (AMB) | payer MEDICARE, OTHER, SELFPAY ==
--- NOTE | 2023-02-05 12:35 | A.OFFVIS_ITS ---
Intake Intake Visit Reasons: ov- Bursitis of left shoulder last inj 11/06/22 Intake Note: Matthew an 87 year old male presents today for a follow up of left shoulder, last injection 11/06/22. Patient reports last injection provided him good relief however his discomfort has returned in his left shoulder. He is requesting to repeat injection in his left shoulder. Allergies No Known Allergies Allergy (Verified 12/21/22 12:47) HPI ov- Bursitis of left shoulder last inj 11/06/22 HPI Details 87-year-old male who [facility] for a follow-up of left shoulder pain. He had his last injection on 11/06/22 which provided him good relief however the discomfort returned. He currently states he has discomfort in his left shoulder which is aggravated in cold weather. He would like to repeat the injection. 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 Mother No problems noted. Social History Household Members: None Housing: House Are you a primary career development counselor to a significant other at home: No Do you presently have visiting nurse or other home services: No Patient Tobacco Use Status: Former Tobacco user Quit Date: 60 years ago Tobacco use type: Cigarette service: Yes Current occupational status: retired Current occupation: rt handed Review of Systems Const All systems reviewed & are unremarkable except as noted in HPI and below Physical Exam Extrem Other: Bilateral shoulder normal to inspection. Tenderness over the bicipital groove and along the deltoid region of the shoulder. Forward flexion to 175, external rotation to 90, internal rotation to S1. 5/5 RTC strength. Negative Olson and cross body abduction. NVI. Right hip: No pain with ROM or hip flexion. Calf supple, nontender. NVI. Office Procedures Joint Injection/Drain Joint Injection/Drain Primary Site: left shoulder Prep: site was prepped using aseptic technique, ethochloride spray was applied and injection warnings given Injected: 80 mg of, DepoMedrol, with 8 mL of, 1% plain lidocaine and in the subcromial space Approach Used: posterolateral Procedure: The patient tolerated the procedure well and there was some relief with the local anesthesia Coding 44963 - Glenohumeral/Tronchanteric Bursa/Intraarticular Procedure code (CPT) selection complete Results Reviewed Results Reviewed: xrays of the right femur show IMN intact with interval healing Assessment & Plan Assessment & Plan (1) Fracture, intertrochanteric, right femur: Comment: status post right hip IM nailing 11/10/2022 Dr. Vidal Code(s): S72.141A - Displaced intertrochanteric fracture of right femur, initial encounter for closed fracture Qualifiers: Encounter type: subsequent encounter Fracture type: closed Fracture alignment: nondisplaced Fracture healing: with routine healing Qualified Code(s): S72.144D - Nondisplaced intertrochanteric fracture of right femur, subsequent encounter for closed fracture with routine healing (2) Tendonitis of left rotator cuff: Code(s): M75.82 - Other shoulder lesions, left shoulder Plan We discussed options today which include steroid injection. They did consent to move forward with the left shoulder injection, which was tolerated well. I recommended rest, ice and elevation and OTC anti-inflammatories PRN for discomfort. If symptoms persist or worsens over the next 6-8 weeks, patient will contact the office, otherwise follow-up as needed. For his right hip, he will continue to increase activity as tolerated working on his home exercises program. He will see us back as needed. Orders: Orders XR femur RT 2V Today S72.142A - Displaced intertrochanteric fracture of left femur, initial encounter for closed fracture Patient Instructions: Scribed for Cyndi Núñez PA-C, by Vlad Shepherd medical historian, on 02/05/2023 at 12:45 PM EST. ICyndi PA-C, have personally reviewed and agree with the information entered by the scribe. Coding Level of Care Code Est Pt Level 3 (17853) Diagnoses Closed nondisplaced intertrochanteric fracture of right femur with routine healing, subsequent encounter S72.144D Encounter type: subsequent encounter Fracture type: closed Fracture alignment: nondisplaced Fracture healing: with routine healing Tendonitis of left rotator cuff M75.82 CPT Codes Coding - Joint 7: 64077 - Glenohumeral/Tronchanteric Bursa/Intraarticular ([id number])
== END 2023-02-05 13:44 | disposition home or self-care (01) ==
PROVIDERS: PCP Internal Medicine; Visit Provider Physician Assistant
DX: M75.82 Other shoulder lesions, left shoulder (principal); S72.144D Nondisplaced intertrochanteric fracture of right femur, subsequent encounter for closed fracture with routine healing
CPT/HCPCS: 20610; 99213

== ENCOUNTER → 2023-02-05 12:31 | Outpatient (BNVA) | payer MEDICARE, OTHER, SELFPAY | PROVIDERS: PCP Internal Medicine; Visit Provider Physician Assistant | DX: S72.144D Nondisplaced intertrochanteric fracture of right femur, subsequent encounter for closed fracture with routine healing (principal); M75.82 Other shoulder lesions, left shoulder | CPT/HCPCS: 20610; 99212; J1040 ==

== ENCOUNTER 2023-02-06 11:19 | Outpatient (REF) | payer MEDICARE, OTHER, SELFPAY ==
--- NOTE | ~2023-02-06 | XR_ITS ---
EXAMINATION: XR FEMUR, RIGHT CLINICAL INFORMATION: Intertrochanteric fracture. COMPARISON: 12/21/2022 TECHNIQUE: AP and lateral views of the right femur were obtained. FINDINGS: Again seen are an intramedullary ivis and screw in the right hip with a healing intertrochanteric fracture. The hardware is intact and no new fractures are seen. Again seen is diffuse periosteal thickening along most of the femur, unchanged from prior. Overall, no interval change when compared to the prior 12/21/2022 study. XR/XR femur RT 2V IMPRESSION: Status post open reduction and internal fixation, right intertrochanteric fracture. No interval change when compared to the prior study with diffuse periosteal thickening as described above.
== END 2023-02-06 11:20 | disposition home or self-care (01) ==
LOC: HO.HOSX 11:19
PROVIDERS: Visit Provider Physician Assistant
DX: S72.141A Displaced intertrochanteric fracture of right femur, initial encounter for closed fracture (principal); X58.XXXA Exposure to other specified factors, initial encounter; Y93.9 Activity, unspecified; Y92.9 Unspecified place or not applicable; Y99.8 Other external cause status; Z47.89 Encounter for other orthopedic aftercare
CPT/HCPCS: 73552

== ENCOUNTER 2023-05-04 12:46 | Outpatient (REF) | payer MEDICARE, OTHER, SELFPAY ==
--- NOTE | ~2023-05-04 | XR_ITS ---
EXAMINATION: XR HIP, RIGHT CLINICAL INFORMATION: Pain COMPARISON: 02/05/2023 TECHNIQUE: Three views of the right hip. FINDINGS: No acute fracture. Status post intramedullary ivis and screw in the right hip with healing intertrochanteric fracture. No evidence of hardware complication. No dislocation. XR/XR hip RT w PEL1V IMPRESSION: Status post intramedullary ivis and screw in the right hip with healing intertrochanteric fracture. No evidence of hardware complication.
== END 2023-05-04 12:47 | disposition home or self-care (01) ==
LOC: HO.HOSX 12:46
PROVIDERS: Visit Provider Physician Assistant
DX: M75.81 Other shoulder lesions, right shoulder (principal); M75.82 Other shoulder lesions, left shoulder; M25.551 Pain in right hip; M79.651 Pain in right thigh; S72.144D Nondisplaced intertrochanteric fracture of right femur, subsequent encounter for closed fracture with routine healing; X58.XXXD Exposure to other specified factors, subsequent encounter
CPT/HCPCS: 20610; 73502; 99212; J1020

== ENCOUNTER 2023-05-04 13:08 | Outpatient (AMB) | payer MEDICARE, OTHER, SELFPAY ==
--- NOTE | 2023-05-04 13:09 | MHC.OFFVIS ---
Intake Intake Visit Reasons: newprob- Rt thigh/ hip pain Intake Note: Patient reports he received bilateral shoulder injections on 11/06/22, he states his discomfort has recently returned. He is requesting to repeat injections. Allergies No Known Allergies Allergy (Verified 05/04/23 13:44) HPI newprob- Rt thigh/ hip pain HPI Details 87 year old male returns to the office today f/u right thigh/hip pain. He is s/p Rt hip IMN 10/2022 with [facility]. He has been doing quite well s/p surgery. He recently traveled to [place] to be with his family. He was doing a lot of walking and golfing and noticed some increased pain in the right thigh, unsure if it was due to temperature change because his eczema did flare up at that time as well. He states he has not been compliant with his exercises post op because he is busy. He mentions that he injured his calf Sunday, when he accidentally his hit lower leg with his luggage. He is on a blood thinner, he was seen by his pcp who started him on a water pill to help with the fluid retention since his flight. 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 Mother No problems noted. Social History Household Members: None Housing: House Are you a primary child daycare worker to a significant other at home: No Do you presently have visiting nurse or other home services: No Patient Tobacco Use Status: Former Tobacco user Quit Date: 60 years ago Tobacco use type: Cigarette service: Yes Current occupational status: retired Current occupation: rt handed Review of Systems Const All systems reviewed & are unremarkable except as noted in HPI and below Physical Exam Extrem Other: Right hip: Normal to inspection. No pain with hip flex or ROM of hip. No pain in the knee. No tenderness to palpation along the thigh. There is an area on right calf that is slightly erythemitous and tender. No open wound. He does appear to have pitting edema bilaterally. Calf supple, nontender. NVI. Office Procedures Joint Injection/Drain Joint Injection/Drain Primary Site: right shoulder Secondary Site: left shoulder Prep: site was prepped using aseptic technique, ethochloride spray was applied and injection warnings given Injected: 80 mg of, DepoMedrol, with 8 mL of, 1% plain lidocaine and in the subcromial space Approach Used: posterolateral Procedure: The patient tolerated the procedure well and there was some relief with the local anesthesia Coding 92509 - Glenohumeral/Tronchanteric Bursa/Intraarticular Procedure code (CPT) selection complete Results Reviewed Results Reviewed: xrays of the right femur show IMN intact with interval healing Assessment & Plan Assessment & Plan (1) Fracture, intertrochanteric, right femur: Comment: status post right hip IM nailing 11/10/2022 Dr. Vidal Code(s): S72.141A - Displaced intertrochanteric fracture of right femur, initial encounter for closed fracture Qualifiers: Encounter type: subsequent encounter Fracture type: closed Fracture alignment: nondisplaced Fracture healing: with routine healing Qualified Code(s): S72.144D - Nondisplaced intertrochanteric fracture of right femur, subsequent encounter for closed fracture with routine healing (2) Tendonitis of both rotator cuffs: Code(s): M75.81 - Other shoulder lesions, right shoulder; M75.82 - Other shoulder lesions, left shoulder Plan Reassurance was given that the hardware on the right hip is intact and stable. I encouraged the patient to work on home exercises for strengthening as the source of pain may be due to muscle weakness from his initial surgery. I did prescribe him an antibiotic , Bactrim which he will take twice a day as he does have early cellulitis developing from the abrasion on calf. We discussed options today which include steroid injection for bilat shoulder pain. They did consent to move forward with the right hip injection, which was tolerated well. I recommended rest, ice and elevation and OTC anti-inflammatories PRN for discomfort. If symptoms persist or worsens over the next 6-8 weeks, patient will contact the office, otherwise follow-up as needed. Orders: Orders XR hip RT w PEL1V Today M25.559 - Pain in unspecified hip Medications: New sulfamethoxazole-trimethoprim 800-160 mg (Bactrim DS) 1 tab PO BID 10 days 20 tabs 0RF suture abscess Patient Instructions: Scribed for Cyndi Núñez PA-C, by Vlad Shepherd medical billing and coding instructor, on 05/04/2023 at 1:15 PM EST. ICyndi PA-C, have personally reviewed and agree with the information entered by the scribe. Coding Level of Care Code Est Pt Level 3 (21252) Diagnoses Closed nondisplaced intertrochanteric fracture of right femur with routine healing, subsequent encounter S72.144D Encounter type: subsequent encounter Fracture type: closed Fracture alignment: nondisplaced Fracture healing: with routine healing Tendonitis of both rotator cuffs M75.81; M75.82 CPT Codes Coding - Joint 7: 84790 - Glenohumeral/Tronchanteric Bursa/Intraarticular ([id number])
== END 2023-05-04 14:32 | disposition home or self-care (01) ==
PROVIDERS: PCP Internal Medicine; Visit Provider Physician Assistant
DX: S72.144D Nondisplaced intertrochanteric fracture of right femur, subsequent encounter for closed fracture with routine healing (principal); M75.81 Other shoulder lesions, right shoulder; M75.82 Other shoulder lesions, left shoulder
CPT/HCPCS: 20610; 99213

== ENCOUNTER 2023-05-09 11:01 | Outpatient (REF) | payer MEDICARE, OTHER, SELFPAY ==
[2023-05-09 13:40] LABS: Anion Gap 11 (12-20); Blood Urea Nitrogen 31 mg/dL (9-16); Calcium 9.3 mg/dL (8.4-10.2); Carbon Dioxide 29 mmol/L (22-29); Chloride 101 mmol/L (96-108); Estimated Glomerular Filt Rate 40; Glucose Random 97 mg/dL (60-115); Potassium 4.1 mmol/L (3.3-5.1); Sodium 137 mmol/L (135-145)
[2023-05-09 14:04] LABS: Prostate Specific Antigen 2.75 ng/mL (<0.05-4.0)
== END 2023-05-09 11:02 | disposition home or self-care (01) ==
LOC: HO.10HDL 11:01
PROVIDERS: Referring Provider Internal Medicine; Visit Provider Urology
DX: C61 Malignant neoplasm of prostate (principal); I48.91 Unspecified atrial fibrillation; I10 Essential (primary) hypertension; R60.9 Edema, unspecified; Z12.5 Encounter for screening for malignant neoplasm of prostate
CPT/HCPCS: 36415; 80048; 84153

== ENCOUNTER 2023-05-29 10:44 | Outpatient (AMB) | payer MEDICARE, OTHER, SELFPAY ==
--- NOTE | 2023-05-29 10:45 | A.OFFVIS_ITS ---
Intake Intake Visit Reasons: 6m/PSA(set )Confirmed Intake Note: Patient is Present for Follow Up Urology Medication: Finasteride Antibiotic Allergies: None Blood Thinners: Eliquis Pharmacy: for [facility], Allergies No Known Allergies Allergy (Verified 05/29/23 10:46) HPI HPI Comments History of Present Illness Details Matthew is a pleasant male. He is a patient of Dr. Sahu. He is followed with the following urologic condition - prostate cancer Slowly rising PSA Continue finasteride Swollen feet at the end day Recommendation to elevate Lost 2021 Sold [employer] 2022 Prostate cancer Longstanding diagnosis with Dr. 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 Mother No problems noted. Social History Household Members: None Housing: House Are you a primary career development facilitator to a significant other at home: No Do you presently have visiting nurse or other home services: No Patient Tobacco Use Status: Former Tobacco user Quit Date: 60 years ago Tobacco use type: Cigarette service: Yes Current occupational status: retired Current occupation: rt handed Review of Systems Const Denies chills and Denies fever(s) Card Reports no additional complaints and Denies syncope Resp Denies cough GI Denies abdominal pain and Denies heartburn Reports as per HPI and Denies change in libido Neuro Denies syncope Psych Denies change in libido Endo Denies change in libido Physical Exam Const General: cooperative, healthy appearing, comfortable and no acute distress Orientation/consciousness: patient oriented x3 HEENT Face and sinus: Yes normal facial exam Mouth: moist mucous membranes Neck Neck: Yes normal visual inspection, Yes full ROM and Yes trachea midline Chest Chest palpation & inspection: normal inspection of the chest Resp Effort & Inspection: normal respiratory effort, able to speak in complete sentences and no respiratory distress GI Inspection: Yes normal to inspection Back/Spine/Pelvis Cervical Spine: normal cervical lordosis Thoracic/Lumbar Spine: thoracic and lumbar spine normal to inspection Skin General skin exam: no rashes or lesions noted Neuro General: patient oriented x3, gait normal, tone normal and moves all extremities Extrem General: Yes normal to inspection and Yes capillary refill normal Assessment & Plan Assessment & Plan (1) Malignant neoplasm of prostate: Comment: sees -PSA monitored Code(s): C61 - Malignant neoplasm of prostate Plan Continue finasteride Six-month follow-up Orders: Orders Prostate Specific Antigen 6 Months C61 - Malignant neoplasm of prostate Patient Instructions: Imaging studies, laboratory and physical exam results were discussed and reviewed in detail. No major barriers to patient understanding were identified. An opportunity to ask questions regarding the treatment plan was provided. All questions were answered. The patient expressed understanding and agreement with the above treatment plan. The patient is aware they should contact our office by phone for worsening of their current condition or the appearance of new urologic symptoms. Compliance is encouraged with any medications and followup testing that is ordered. It is a privilege to participate in the urologic care of your patient. If you have any questions or concerns regarding treatment for the above conditions, or other urologic issues, please do not hesitate to contact me. The office telephone contact is [phone]. This note is constructed using voice recognition software. While every effort has been made to ensure accuracy passenger coach driver errors may have been included. Yours sincerely, Dr Al Carter MD, [facility] - Urology Providers of Expert, Compassionate Care for the Genitourinary System Coding Level of Care Code Est Pt Level 3 (82765) Diagnoses Malignant neoplasm of prostate C61
== END 2023-05-29 10:57 | disposition home or self-care (01) ==
LOC: HO.HUSH 10:44
PROVIDERS: PCP Internal Medicine; Visit Provider Urology
DX: C61 Malignant neoplasm of prostate (principal)
CPT/HCPCS: 99213

== ENCOUNTER → 2023-05-29 10:44 | Outpatient (BNVA) | payer MEDICARE, OTHER, SELFPAY | PROVIDERS: PCP Internal Medicine; Visit Provider Urology | DX: C61 Malignant neoplasm of prostate (principal) | CPT/HCPCS: 99212 ==

== ENCOUNTER 2023-07-02 11:00 | Outpatient (REF) | payer MEDICARE, OTHER, SELFPAY ==
[2023-07-02 13:29] LABS: MANUAL DIFF FLAG NO
[2023-07-02 13:35] LABS: Basophils Absolute Auto 0.1 X10*3/uL (0.0-0.2); Basophils Percent Auto 1.2 % (0-2); Eosinophils Absolute Auto 0.2 X10*3/uL (0.0-0.4); Eosinophils Percent Auto 3.5 % (0-4); Hematocrit 36.5 % (42.0-52.0); Imm Gran Abs Auto 0.01 X10*3/uL (0.00-0.03); Imm Gran Pct Auto 0.2 % (0.0-0.4); Lymphocytes Absolute Auto 0.8 X10*3/uL (1.2-4.9); Lymphocytes Percent Auto 18.2 % (20-40); Mean Corpuscular HGB Conc 32.9 g/dl (31.0-36.0); Mean Corpuscular Hemoglobin 31.5 pg (27.0-33.0); Mean Corpuscular Volume 95.8 fL (80.0-98.0); Mean Platelet Volume 11.7 fL (9.4-12.4); Monocytes Absolute Auto 0.5 X10*3/uL (0.1-1.2); Monocytes Percent Auto 11.3 % (2-11); Neutrophils Absolute Auto 2.8 x10*3/uL (2.0-8.3); Neutrophils Percent Auto 65.6 % (45-73); Platelet Count 195 X10*3/uL (160-400); Red Blood Count 3.81 X10*6/uL (4.60-5.80); Red Cell Distribution Width 15.1 % (11.0-16.0); White Blood Count 4.2 X10*3/uL (4.8-10.8)
[2023-07-02 14:01] LABS: Alanine Aminotransferase 46 U/L (0-40); Albumin Level 3.7 g/dL (3.5-5.0); Alkaline Phosphatase 93 U/L (39-117); Anion Gap 14 (12-20); Aspartate Amino Transferase 69 U/L (5-37); Bilirubin Total 0.7 mg/dL (0.0-1.0); Blood Urea Nitrogen 25 mg/dL (9-16); Calcium 9.6 mg/dL (8.4-10.2); Carbon Dioxide 23 mmol/L (22-29); Chloride 106 mmol/L (96-108); Estimated Glomerular Filt Rate 41; Glucose Random 89 mg/dL (60-115); Potassium 4.2 mmol/L (3.3-5.1); Sodium 139 mmol/L (135-145); Total Protein 7.3 g/dL (6.5-8.0)
[2023-07-02 14:20] LABS: Erythrocyte Sedimentation Rate 40 MM/HR (0-15)
[2023-07-03 13:49] LABS: CRP High Sensitivity 7.2 mg/L
== END 2023-07-02 11:01 | disposition home or self-care (01) ==
LOC: HO.10HDL 11:00
PROVIDERS: Referring Provider Internal Medicine Rheumatology; Visit Provider Internal Medicine
DX: I48.91 Unspecified atrial fibrillation (principal); I12.9 Hypertensive chronic kidney disease with stage 1 through stage 4 chronic kidney disease, or unspecified chronic kidney disease; N18.9 Chronic kidney disease, unspecified; M06.9 Rheumatoid arthritis, unspecified
CPT/HCPCS: 36415; 80053; 85025; 85652; 86141

== ENCOUNTER 2023-07-13 17:09 | Outpatient (REF) | payer MEDICARE, OTHER, SELFPAY | END 2023-07-13 17:10 | disposition home or self-care (01) | LOC: HO.LNP 17:09 | PROVIDERS: Visit Provider Internal Medicine | DX: L97.919 Non-pressure chronic ulcer of unspecified part of right lower leg with unspecified severity (principal) | CPT/HCPCS: 87070; 87205 ==

== ENCOUNTER 2023-07-30 08:31 | Outpatient (REF) | payer MEDICARE, OTHER, SELFPAY ==
--- NOTE | ~2023-07-30 | US_ITS ---
EXAMINATION: US ABDOMEN COMPLETE CLINICAL INFORMATION: Abnormal results of liver function studies. COMPARISON: Ultrasound abdomen 12/17/2015. TECHNIQUE: Real-time imaging of the abdominal viscera. FINDINGS: PANCREAS: The pancreas is not well seen due to bowel gas. ABDOMINAL AORTA: The proximal, mid, and distal segments are normal in caliber. Atherosclerotic plaque is seen within the abdominal aorta. INFERIOR VENA CAVA: Visualized portions are normal. LIVER: The liver is normal in size. The liver contour is normal. There is diffuse increased liver parenchymal echogenicity, consistent with hepatic steatosis. No focal hepatic lesion. There is no intrahepatic biliary duct dilatation seen. GALLBLADDER: Normal. The gallbladder is physiologically distended without evidence of stones, sludge, polyps, wall thickening or pericholecystic fluid. COMMON BILE DUCT: Normal in caliber measuring 0.3 cm in diameter. RIGHT KIDNEY: No hydronephrosis or focal parenchymal lesions. The kidney measures 10.3 cm in maximum dimension. 0.3 cm lower pole cortical calcification is likely vascular in origin . LEFT KIDNEY: Normal. No hydronephrosis. No renal calculi or focal parenchymal lesions. The kidney measures 10.2 cm in maximum dimension. SPLEEN: Normal. The spleen measures 9.6 cm in maximum dimension. FREE FLUID: None. US/US abdomen complete IMPRESSION: 1. Hepatic steatosis. 2. Atherosclerosis. 3. The pancreas is not well seen due to bowel gas.
== END 2023-07-30 08:32 | disposition home or self-care (01) ==
LOC: HO.US 08:31
PROVIDERS: PCP Internal Medicine; Visit Provider Internal Medicine
DX: R94.5 Abnormal results of liver function studies (principal)
CPT/HCPCS: 76700

== ENCOUNTER 2023-08-08 11:04 | Outpatient (AMB) | payer MEDICARE, OTHER, SELFPAY ==
--- NOTE | 2023-08-08 11:15 | A.OFFVIS_ITS ---
Intake Visit Reasons: OV-B/L shoulder injections Intake Note: Matthew an 87 year old male presents today for a follow up of left shoulder, last injection 05/04/23. Patient reports he is doing well, states no discomfort in his shoulders. He has concerns of an abrasion on his lower leg that has been having a drainage. He states at his last visit he was prescribed antibiotics that helped however his symptoms have returned and is requesting antibiotics. Allergies No Known Allergies Allergy (Verified 08/08/23 11:26) HPI HPI OV-B/L shoulder injections: Details: 87-year-old male who returns to the office today for a follow-up of bilateral shoulder pain. He had a left shoulder injection on 11/07/23 that provided him relief. He currently states he has drainage as well as discomfort in his whole leg that radiates to his back. His pain is aggravated at night and with laying on his arm. 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 Mother No problems noted. Social History Household Members: None Housing: House Are you a primary lawn care professional to a significant other at home: No Do you presently have visiting nurse or other home services: No Patient Tobacco Use Status: Former Tobacco user Tobacco use type: Cigarette service: Yes Current occupational status: retired Current occupation: rt handed Review of Systems Const All systems reviewed & are unremarkable except as noted in HPI and below Physical Exam Extrem Other: Bilateral shoulder: Normal to inspection. Tenderness over the bicipital groove and along the deltoid region of the shoulder. Forward flexion to 175, external rotation to 90, internal rotation to S1. 5/5 RTC strength. Negative Olson and cross body abduction. NVI. Assessment & Plan Assessment & Plan (1) Tendonitis of both rotator cuffs: Code(s): M75.81 - Other shoulder lesions, right shoulder; M75.82 - Other shoulder lesions, left shoulder Category: Medical (2) Wound of right leg: Code(s): S81.801A - Unspecified open wound, right lower leg, initial encounter Category: Medical Plan He will hold off on corticosteroid injection today given he has no significant pain with activities. If symptoms persist or worsen, patient will contact the office for an injection, otherwise follow-up as needed. He has a chronic wound on the RLE that looks cellulitic in nature. I did give him a prescription of Bactrim and referred him to wound care. I stressed the importance of attending this visit as well. Orders: Referrals 2 Wound Care Referral S81.801A - Unspecified open wound, right lower leg, initial encounter Medications: New sulfamethoxazole-trimethoprim 800-160 mg (Bactrim DS) 1 tab PO BID 20 tabs 0RF suture abscess 10 days Patient Instructions: Scribed for Cyndi Núñez PA-C, by Vlad Shepherd medical record retrieval specialist, on 08/08/2023 at 11:15 AM EST.? I, Cyndi Núñez PA-C, have personally reviewed and agree with the information entered by the scribe. Coding Level of Care Code Est Pt Level 3 (83348) Diagnoses Tendonitis of both rotator cuffs M75.81; M75.82 Wound of right leg S81.801A
== END 2023-08-08 12:09 | disposition home or self-care (01) ==
PROVIDERS: PCP Internal Medicine; Visit Provider Physician Assistant
DX: M75.81 Other shoulder lesions, right shoulder (principal); M75.82 Other shoulder lesions, left shoulder; S81.801A Unspecified open wound, right lower leg, initial encounter
CPT/HCPCS: 99214

== ENCOUNTER → 2023-08-08 11:04 | Outpatient (BNVA) | payer MEDICARE, OTHER, SELFPAY | PROVIDERS: PCP Internal Medicine; Visit Provider Physician Assistant | DX: M75.81 Other shoulder lesions, right shoulder (principal); M75.82 Other shoulder lesions, left shoulder; S81.801A Unspecified open wound, right lower leg, initial encounter; X58.XXXA Exposure to other specified factors, initial encounter; Y93.9 Activity, unspecified; Y92.9 Unspecified place or not applicable; Y99.9 Unspecified external cause status | CPT/HCPCS: 99212 ==

== ENCOUNTER 2023-08-27 12:19 | Outpatient (RCR) | payer MEDICARE, OTHER, SELFPAY | END 2024-01-18 14:04 | disposition home or self-care (01) | LOC: HO.WCC 12:19 | PROVIDERS: PCP Internal Medicine; Visit Provider Physician Assistant | DX: I87.331 Chronic venous hypertension (idiopathic) with ulcer and inflammation of right lower extremity (principal); I70.238 Atherosclerosis of native arteries of right leg with ulceration of other part of lower leg; L97.812 Non-pressure chronic ulcer of other part of right lower leg with fat layer exposed; I89.0 Lymphedema, not elsewhere classified; M05.9 Rheumatoid arthritis with rheumatoid factor, unspecified; D64.9 Anemia, unspecified; Z79.01 Long term (current) use of anticoagulants; Z79.899 Other long term (current) drug therapy | CPT/HCPCS: 11042; 15271; 99212; Q4187 ==

== ENCOUNTER 2023-09-10 10:46 | Outpatient (REF) | payer MEDICARE, OTHER, SELFPAY ==
[2023-09-10 13:18] LABS: MANUAL DIFF FLAG NO
[2023-09-10 13:31] LABS: Basophils Absolute Auto 0.1 X10*3/uL (0.0-0.2); Basophils Percent Auto 2.1 % (0-2); Eosinophils Absolute Auto 0.3 X10*3/uL (0.0-0.4); Hematocrit 30.6 % (42.0-52.0); Imm Gran Abs Auto 0.02 X10*3/uL (0.00-0.03); Imm Gran Pct Auto 0.4 % (0.0-0.4); Lymphocytes Absolute Auto 0.8 X10*3/uL (1.2-4.9); Lymphocytes Percent Auto 16.6 % (20-40); Mean Corpuscular HGB Conc 32.7 g/dl (31.0-36.0); Mean Corpuscular Hemoglobin 32.2 pg (27.0-33.0); Mean Corpuscular Volume 98.4 fL (80.0-98.0); Mean Platelet Volume 11.1 fL (9.4-12.4); Monocytes Absolute Auto 0.6 X10*3/uL (0.1-1.2); Monocytes Percent Auto 11.7 % (2-11); Neutrophils Percent Auto 63.2 % (45-73); Platelet Count 233 X10*3/uL (160-400); Red Blood Count 3.11 X10*6/uL (4.60-5.80); Red Cell Distribution Width 14.6 % (11.0-16.0); White Blood Count 4.7 X10*3/uL (4.8-10.8)
[2023-09-10 13:49] LABS: Alanine Aminotransferase 24 U/L (0-40); Albumin Level 3.4 g/dL (3.5-5.0); Alkaline Phosphatase 115 U/L (39-117); Anion Gap 12 (12-20); Aspartate Amino Transferase 48 U/L (5-37); Bilirubin Total 0.6 mg/dL (0.0-1.0); Blood Urea Nitrogen 16 mg/dL (9-16); Calcium 9.1 mg/dL (8.4-10.2); Carbon Dioxide 25 mmol/L (22-29); Chloride 105 mmol/L (96-108); Estimated Glomerular Filt Rate 54; Glucose Random 88 mg/dL (60-115); Potassium 4.1 mmol/L (3.3-5.1); Sodium 138 mmol/L (135-145); Total Protein 6.6 g/dL (6.5-8.0)
== END 2023-09-10 10:47 | disposition home or self-care (01) ==
LOC: HO.10HDL 10:46
PROVIDERS: Visit Provider Internal Medicine
DX: I48.91 Unspecified atrial fibrillation (principal); M81.0 Age-related osteoporosis without current pathological fracture; N18.9 Chronic kidney disease, unspecified; R79.89 Other specified abnormal findings of blood chemistry
CPT/HCPCS: 36415; 80053; 85025

== ENCOUNTER 2023-09-20 13:53 | Outpatient (AMB) | payer MEDICARE, OTHER, SELFPAY ==
--- NOTE | 2023-09-20 14:21 | MHC.OFFVIS ---
Vital Signs 09/20/23 14:25 Height 5 ft 9 in Weight 158 lb 4.67 oz BMI 23.4 BP 132/62 Blood Pressure Location Lt brachial Position Sitting Pulse 87 Intake Visit Reasons: 1 yr f/up Market Development Specialist Required: No Accompanied by: Self / Same As Patient Allergies No Known Allergies Allergy (Verified 08/08/23 11:26) Medication List - Last Reconciled 09/20/23 by Elia Nelson MD apixaban (Eliquis) 2.5 mg PO BID famotidine 20 mg PO BEDTIME finasteride 5 mg PO DAILY 90 days folic acid 1 mg PO DAILY leflunomide 20 mg PO DAILY melatonin 5 mg PO BEDTIME PRN methotrexate sodium 10 mg PO SA methylprednisolone 0 mg PO multivitamin 1 tab PO DAILY sulfamethoxazole-trimethoprim 800-160 mg (Bactrim DS) 1 tab PO BID 10 days HPI Comments Details: Matthew is here for follow up regarding atrial fibrillation. Routine checkup and EKG had revealed atrial fibrillation. Overall, he states he is doing good. No cardiac symptoms whatsoever. Plays golf regularly with no issues. Even today he did that. He still not happy about taking medications. 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 Mother No problems noted. Social History (Updated 09/20/23 @ 14:27 by Alicia Carrasco CMA) Household Members: None Housing: House Are you a primary health care administrator to a significant other at home: No Do you presently have visiting nurse or other home services: No Alcohol intake: never Patient Tobacco Use Status: Former Tobacco user Tobacco use type: Cigarette service: Yes Current occupational status: retired Current occupation: rt handed Review of Systems Const Denies chills, Denies fatigue, Denies fever(s), Denies weight gain and Denies weight loss ENT Denies dizziness Card Denies chest pain, Reports leg edema, Denies lightheadedness, Denies palpitations, Reports dyspnea on exertion, Denies orthopnea and Denies other Resp Denies cough and Reports dyspnea on exertion GI Denies hematochezia and Denies change in stool character Musc Denies abnormal gait, Denies muscle weakness, Denies numbness, Denies radiating pain into limb and Denies tingling Neuro Denies abnormal gait, Denies dizziness, Denies numbness and Denies tingling Endo Denies fatigue and Denies palpitations Physical Exam Vital Signs: Last Vital Signs Pulse 87 09/20/23 14:25 BP 132/62 09/20/23 14:25 BMI result Body Mass Index 23.4 Const General: comfortable and no acute distress Orientation/consciousness: patient oriented x3 HEENT Other: Unremarkable Head: Yes normal to inspection Neck Neck: Yes normal visual inspection Chest Chest palpation & inspection: normal inspection of the chest Resp Auscultation: clear to auscultation bilaterally Cardio Palpation: normal PMI Heart sounds: S1 normal heart sound present, S2 normal heart sound present, no gallops, no murmurs and no rubs GI Palpation (GI): Soft to palpation Back/Spine/Pelvis Other: unremarkable Skin General skin exam: no rashes or lesions noted Neuro General: patient oriented x3 Extrem Other: 1+ edema General: Yes normal to inspection Psych Mental Status: mental status grossly normal Office Procedures EKG Details: EKG with atrial fibrillation at a rate of 87/Min; no significant ST-T changes and otherwise unremarkable. 31633-Hfnubszdamwiorrdh, Complete Assessment & Plan Assessment & Plan (1) Persistent atrial fibrillation: Code(s): I48.19 - Other persistent atrial fibrillation Category: Medical (2) Leg swelling: Code(s): M79.89 - Other specified soft tissue disorders Category: Medical Plan Holter shows atrial fibrillation with adequate rate control. In the echocardiogram, preserved LVEF, 60-65%; moderately dilated left atrium and mild aortic/mitral calcifications. Rate controlled without any medications and likely has intrinsic conduction system disease. With regard to Eliquis, may continue. He still does not want take it but reinforced the importance of taking the same. Dose will need to be adjusted based on creatinine as it has been up and down. With regard to leg swelling, likely all dependent edema. No specific cardiac workup for that. Coding Level of Care Code Est Pt Level 3 (95705) Diagnoses Persistent atrial fibrillation I48.19 Leg swelling M79.89 CPT Codes EKG - CPT: 45620-Mwgqitygyhmfccsev, Complete ([id number])
[2023-09-20 14:25] VITALS: BP 132/62; PULSE 87; BMI 23.4
== END 2023-09-20 14:41 | disposition home or self-care (01) ==
PROVIDERS: PCP Internal Medicine; Visit Provider Internal Medicine
DX: I48.19 Other persistent atrial fibrillation (principal); M79.89 Other specified soft tissue disorders
CPT/HCPCS: 93010; 99213

== ENCOUNTER → 2023-09-20 13:53 | Outpatient (BNVA) | payer MEDICARE, OTHER, SELFPAY | PROVIDERS: PCP Internal Medicine; Visit Provider Internal Medicine | DX: I48.19 Other persistent atrial fibrillation (principal); R79.89 Other specified abnormal findings of blood chemistry | CPT/HCPCS: 93005; 99212 ==

== ENCOUNTER 2023-11-22 13:48 | Outpatient (AMB) | payer MEDICARE, OTHER, SELFPAY ==
--- NOTE | 2023-11-22 14:12 | MHC.OFFVIS ---
Intake Visit Reasons: Inj-B/L shoulder injections-last inj 08/08/23 Allergies No Known Allergies Allergy (Verified 08/08/23 11:26) HPI HPI Inj-B/L shoulder injections-last inj 08/08/23: Details: 88-year-old male who returns to the office today for a follow-up of bilateral shoulder pain. He had his last injection on April 2023 with good relief. 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 Mother No problems noted. Social History (Updated 09/20/23 @ 14:27 by Alicia Carrasco CMA) Household Members: None Housing: House Are you a primary complex care nurse practitioner to a significant other at home: No Do you presently have visiting nurse or other home services: No Alcohol intake: never Patient Tobacco Use Status: Former Tobacco user Tobacco use type: Cigarette service: Yes Current occupational status: retired Current occupation: rt handed Review of Systems Const All systems reviewed & are unremarkable except as noted in HPI and below Physical Exam Extrem Other: Bilateral shoulder: Normal to inspection. Tenderness over the bicipital groove and along the deltoid region of the shoulder. Forward flexion to 175, external rotation to 90, internal rotation to S1. 5/5 RTC strength. Negative Olson and cross body abduction. NVI. Office Procedures Joint Injection/Aspiration Joint Injection/Aspiration Primary Site: right shoulder Secondary Site: left shoulder Prep: site was prepped using aseptic technique, ethochloride spray was applied and injection warnings given Injected: 40 mg of, DepoMedrol, with 8 mL of, 1% plain lidocaine and in the subcromial space Approach Used: posterolateral Procedure: The patient tolerated the procedure well and there was some relief with the local anesthesia Coding 31131 - Glenohumeral/Tronchanteric Bursa/Intraarticular Procedure code (CPT) selection complete Assessment & Plan Assessment & Plan (1) Tendonitis of left rotator cuff: Code(s): M75.82 - Other shoulder lesions, left shoulder Category: Medical (2) Tendonitis of both rotator cuffs: Code(s): M75.81 - Other shoulder lesions, right shoulder; M75.82 - Other shoulder lesions, left shoulder Category: Medical Plan We discussed options today, which include steroid injection. The patient did consent to move forward with the bilateral shoulder injection, which was tolerated well. I recommended rest, ice, and elevation and OTC anti-inflammatories as needed for discomfort. If symptoms persist or worsen over the next 6-8 weeks, patient will contact the office, otherwise follow-up as needed. ? Patient Instructions: Scribed for Cyndi Núñez PA-C, by Vlad Shepherd medical device engineer, on 11/22/2023 at 2:00 PM EST.? I, Cyndi Núñez PA-C, have personally reviewed and agree with the information entered by the scribe. Coding Level of Care Code Est Pt Level 3 (16614) Complex EM visit Add On G2211 Diagnoses Tendonitis of left rotator cuff M75.82 Tendonitis of both rotator cuffs M75.81; M75.82 CPT Codes Coding - Joint 7: 47518 - Glenohumeral/Tronchanteric Bursa/Intraarticular ([id number])
== END 2023-11-22 14:44 | disposition home or self-care (01) ==
LOC: HO.HOS 13:48
PROVIDERS: PCP Internal Medicine; Visit Provider Physician Assistant
DX: M75.82 Other shoulder lesions, left shoulder (principal); M75.81 Other shoulder lesions, right shoulder
CPT/HCPCS: 20610; 99213

== ENCOUNTER → 2023-11-22 13:48 | Outpatient (BNVA) | payer MEDICARE, OTHER, SELFPAY | PROVIDERS: PCP Internal Medicine; Visit Provider Physician Assistant | DX: M75.82 Other shoulder lesions, left shoulder (principal); M75.81 Other shoulder lesions, right shoulder | CPT/HCPCS: 20610; 99212; J1010 ==

== ENCOUNTER 2023-12-11 15:45 | Outpatient (REF) | payer MEDICARE, OTHER, SELFPAY ==
--- NOTE | ~2023-12-11 | XR_ITS ---
EXAMINATION: XR FEMUR, LEFT CLINICAL INFORMATION: Left hip pain. COMPARISON: No prior plain film examination of the left femur. Plain film examination of the right femur dated February 05, 2023. TECHNIQUE: AP and lateral views of the left femur were obtained. FINDINGS: There is no acute radiographic finding. No acute fracture or dislocation is appreciated. 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 The etiology and significance of this finding are uncertain. Differential diagnosis includes, but is not limited to, hypertrophic pulmonary osteoarthropathy. Suspect decreased bone mineral density. Soft tissues appear unremarkable. Monckeberg vascular calcification raising the possibility of diabetic and/or renal calcific atherosclerosis. XR/XR femur LT 2V IMPRESSION: Findings as above. Electronically signed by: Mark Estrada MD 12/12/2023 09:03 AM EDT
[2023-12-11 16:05] LABS: MANUAL DIFF FLAG NO
[2023-12-11 17:13] LABS: Basophils Absolute Auto 0.1 X10*3/uL (0.0-0.2); Basophils Percent Auto 1.4 % (0-2); Eosinophils Absolute Auto 0.3 X10*3/uL (0.0-0.4); Hematocrit 32.4 % (42.0-52.0); Hemoglobin 10.6 g/dl (14.0-18.0); Imm Gran Abs Auto 0.02 X10*3/uL (0.00-0.03); Imm Gran Pct Auto 0.5 % (0.0-0.4); Lymphocytes Absolute Auto 0.8 X10*3/uL (1.2-4.9); Lymphocytes Percent Auto 19.3 % (20-40); Mean Corpuscular HGB Conc 32.7 g/dl (31.0-36.0); Mean Corpuscular Hemoglobin 32.2 pg (27.0-33.0); Mean Corpuscular Volume 98.5 fL (80.0-98.0); Monocytes Absolute Auto 0.8 X10*3/uL (0.1-1.2); Monocytes Percent Auto 18.6 % (2-11); Neutrophils Absolute Auto 2.4 x10*3/uL (2.0-8.3); Neutrophils Percent Auto 54.2 % (45-73); Platelet Count 196 X10*3/uL (160-400); Red Blood Count 3.29 X10*6/uL (4.60-5.80); Red Cell Distribution Width 14.6 % (11.0-16.0); White Blood Count 4.4 X10*3/uL (4.8-10.8)
[2023-12-11 17:51] LABS: Alanine Aminotransferase 63 U/L (0-40); Albumin Level 3.7 g/dL (3.5-5.0); Alkaline Phosphatase 93 U/L (39-117); Anion Gap 12 (12-20); Aspartate Amino Transferase 52 U/L (5-37); Bilirubin Total 0.4 mg/dL (0.0-1.0); Blood Urea Nitrogen 20 mg/dL (9-16); C Reactive Protein 0.37 mg/dL (< or = 0.50); Calcium 9.6 mg/dL (8.4-10.2); Carbon Dioxide 26 mmol/L (22-29); Chloride 107 mmol/L (96-108); Estimated Glomerular Filt Rate 48; Glucose Random 86 mg/dL (60-115); Potassium 4.3 mmol/L (3.3-5.1); Sodium 141 mmol/L (135-145); Total Protein 6.8 g/dL (6.5-8.0)
[2023-12-11 18:04] LABS: Prostate Specific Antigen 1.42 ng/mL (<0.05-4.0)
== END 2023-12-11 15:46 | disposition home or self-care (01) ==
LOC: HO.LAB 15:45
PROVIDERS: Urology; PCP Internal Medicine; Visit Provider Internal Medicine
DX: M25.552 Pain in left hip (principal); C61 Malignant neoplasm of prostate; Z12.5 Encounter for screening for malignant neoplasm of prostate; N18.9 Chronic kidney disease, unspecified; D64.9 Anemia, unspecified
CPT/HCPCS: 36415; 73552; 80053; 82550; 84153; 85025; 86140

== ENCOUNTER 2024-01-14 08:51 | Outpatient (REF) | payer MEDICARE, OTHER, SELFPAY ==
--- NOTE | ~2024-01-14 | XR_ITS ---
ADDENDUM #1 The physician residential support specialist was notified to call call the ordering clinician to ensure receipt of this report. This exam was presented for review on March 11, 2024 Electronically signed by: Nba Rogers MD 03/11/2024 09:24 AM EST RP ORIGINAL REPORT EXAMINATION: XR PELVIS CLINICAL INFORMATION: Pain in unspecified hip M25.559. COMPARISON: XR Right hip with pelvis 05/04/2023 TECHNIQUE: AP view of the pelvis. FINDINGS: Postoperative changes in the proximal right femur with the femoral nail and screws in place unchanged. Appearance and alignment unchanged. Heterotopic ossification noted proximal to the greater trochanter unchanged. Fracture line not clearly demonstrated suggesting complete or near complete fracture healing. There is slight cortical irregularity along the iliopubic line have the appearance of an age-indeterminate minimally displaced/nondisplaced fracture not seen previously. IMPRESSION: 1. Postoperative changes in the right hip. 2. Suspect age-indeterminate minimally displaced/nondisplaced fracture left lateral superior ramus. This was not seen previously. Electronically signed by: Nba Rogers MD 03/11/2024 09:17 AM EST RP XR/XR pelvis 1-2V
== END 2024-01-14 08:52 | disposition home or self-care (01) ==
LOC: HO.HOSX 08:51
PROVIDERS: Visit Provider Physician Assistant
DX: M70.72 Other bursitis of hip, left hip (principal)
CPT/HCPCS: 72170; 99212

== ENCOUNTER 2024-01-14 11:14 | Outpatient (AMB) | payer MEDICARE, OTHER, SELFPAY ==
--- NOTE | 2024-01-14 11:26 | MHC.OFFVIS ---
Vital Signs 01/14/24 11:42 Height 5 ft 9 in Weight 158 lb BMI 23.3 Intake Visit Reasons: Newprob-Left hip pain Intake Note: Matthew an 88 year old male who presents today for an evaluation of left hip pain. Patient reports pain has been present for about 3 weeks however his pain has improved. Denies injury. His pain radiates from the outside of his hip into his groin areas. Finds no relief with Tylenol. He uses a cane with ambulation. Allergies No Known Allergies Allergy (Verified 01/14/24 11:42) Medication List - Last Reconciled 01/14/24 by Cyndi Núñez PA-C apixaban (Eliquis) 2.5 mg PO BID famotidine 20 mg PO BEDTIME finasteride 5 mg PO DAILY 90 days folic acid 1 mg PO DAILY leflunomide 20 mg PO DAILY melatonin 5 mg PO BEDTIME PRN methotrexate sodium 10 mg PO SA multivitamin 1 tab PO DAILY HPI HPI Newprob-Left hip pain: Details: 88-year-old male returns to the office today for left hip pain. He denies injury. He states his pain is located along the lateral aspect of the hip which radiates down the thigh. There is no groin pain. No numbness or tingling. He states over the last couple of days the pain has subsided somewhat. 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 Mother No problems noted. Social History Household Members: None Housing: House Are you a primary managed care nurse to a significant other at home: No Do you presently have visiting nurse or other home services: No Alcohol intake: never Patient Tobacco Use Status: Former Tobacco user Tobacco use type: Cigarette service: Yes Current occupational status: retired Current occupation: rt handed Review of Systems Const All systems reviewed & are unremarkable except as noted in HPI and below Physical Exam Vital Signs: BMI result Body Mass Index 23.3 Extrem Other: Left hip normal to inspection. No pain with ROM of the hip. Pain along the greater trochanter. No pain with hip flexion or abduction.There is no tenderness along the si joint, Negative SLR. NVI. Results Reviewed Results Reviewed: X-rays of the left hip obtained in the office today show well-preserved joint space. Right IM nail intact. Assessment & Plan Assessment & Plan (1) Hip bursitis, left: Code(s): M70.72 - Other bursitis of hip, left hip Category: Medical Plan We discussed options today which include physical therapy and anti-inflammatories. He deferred physical therapy today. He is on Eliquis therefore cannot take anti-inflammatories. I did recommend Tylenol. Also showed him some exercises he can work on at home for some glute activation. He is content with this plan and will see me back as needed. Orders: Orders XR pelvis 1-2V Today M25.559 - Pain in unspecified hip Coding Level of Care Code Est Pt Level 3 (18765) Complex EM visit Add On G2211 Diagnoses Hip bursitis, left M70.72
[2024-01-14 11:42] VITALS: BMI 23.3
== END 2024-01-14 12:43 | disposition home or self-care (01) ==
PROVIDERS: PCP Internal Medicine; Visit Provider Physician Assistant
DX: M70.72 Other bursitis of hip, left hip (principal)
CPT/HCPCS: 99213; G2211

== ENCOUNTER 2024-01-29 10:52 | Outpatient (AMB) | payer MEDICARE, OTHER, SELFPAY ==
--- NOTE | 2024-01-29 10:52 | A.OFFVIS_ITS ---
Intake Visit Reasons: 7M PSA(set) Intake Note: Patient is present for 7M PSA Urology Medication:FINASTERIDE Antibiotic Allergy:NONE Blood Thinner:ELIQUIS Iron Molder Helper Required: No Allergies No Known Allergies Allergy (Verified 01/29/24 10:53) HPI Comments Details: Matthew is a pleasant male. He is a patient of Dr. Sahu. He is followed with the following urologic condition - prostate cancer Telemedicine Evaluation 15 min Consultation [facility] [employer] Video Continue six-month surveillance PSA has declined with continued finasteride use Swollen feet at the end day Recommendation to elevate Lost 2021 Sold [place] [facility] [employer] 2022 Prostate cancer Longstanding diagnosis with Dr. 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 Mother No problems noted. Social History Household Members: None Housing: House Are you a primary hemodialysis patient care specialist to a significant other at home: No Do you presently have visiting nurse or other home services: No Alcohol intake: never Patient Tobacco Use Status: Former Tobacco user Tobacco use type: Cigarette service: Yes Current occupational status: retired Current occupation: rt handed Review of Systems Const All systems reviewed & are unremarkable except as noted in HPI and below Reports no additional complaints Resp Reports no additional complaints GI Reports no additional complaints Reports as per HPI Musc Reports no additional complaints Physical Exam Telemedicine evaluation Appropriate responses Regular breathing rate and rhythm HEENT Head: Yes normal to inspection Ears: hearing grossly normal bilaterally Eyes General: appearance normal, both eyes and all related structures Neck Neck: Yes normal visual inspection Chest Chest palpation & inspection: normal inspection of the chest Resp Effort & Inspection: normal respiratory effort and able to speak in complete sentences Telehealth Telehealth Telehealth Platform: [facility] Location of provider rendering services: practice address Location of patient: address on file Patient Identification confirmed using: Name, : Yes Telehealth method: video Patient verbally consented to treatment: Yes Patient verbally consented to billing insurance company: Yes Patient informed of any privacy concerns related to visit: Yes Minutes spent on Phone/Video with Pt.: 15 Assessment & Plan Assessment & Plan (1) Malignant neoplasm of prostate: Comment: sees -PSA monitored Code(s): C61 - Malignant neoplasm of prostate Category: Medical Plan Continue Q six-month surveillance Orders: Orders PSA,Total (Free>4and<10) 6 Months C61 - Malignant neoplasm of prostate Patient Instructions: Imaging studies, laboratory and physical exam results were discussed and reviewed in detail. No major barriers to patient understanding were identified. An opportunity to ask questions regarding the treatment plan was provided. All questions were answered. The patient expressed understanding and agreement with the above treatment plan. The patient is aware they should contact our office by phone for worsening of their current condition or the appearance of new urologic symptoms. Compliance is encouraged with any medications and followup testing that is ordered. It is a privilege to participate in the urologic care of your patient. If you have any questions or concerns regarding treatment for the above conditions, or other urologic issues, please do not hesitate to contact me. The office telephone contact is [phone]. This note is constructed using voice recognition software. While every effort has been made to ensure accuracy ui developer errors may have been included. Yours sincerely, Dr Al Carter MD, [facility] - Urology Providers of Expert, Compassionate Care for the Genitourinary System Coding Level of Care Code Tele Est Pt Level 3 (55343) Diagnoses Malignant neoplasm of prostate C61
== END 2024-01-29 14:50 | disposition home or self-care (01) ==
LOC: HO.HUSH 10:52
PROVIDERS: PCP Internal Medicine; Visit Provider Urology
DX: C61 Malignant neoplasm of prostate (principal)
CPT/HCPCS: 99213

== ENCOUNTER 2024-02-05 08:52 | Outpatient (REF) | payer MEDICARE, OTHER, SELFPAY ==
[2024-02-05 11:05] LABS: Basophils Absolute Auto 0.1 X10*3/uL (0.0-0.2); Basophils Percent Auto 1.6 % (0-2); Eosinophils Absolute Auto 0.2 X10*3/uL (0.0-0.4); Eosinophils Percent Auto 6.3 % (0-4); Hematocrit 31.3 % (42.0-52.0); Hemoglobin 10.5 g/dl (14.0-18.0); Imm Gran Abs Auto 0.02 X10*3/uL (0.00-0.03); Imm Gran Pct Auto 0.5 % (0.0-0.4); Lymphocytes Absolute Auto 0.6 X10*3/uL (1.2-4.9); Lymphocytes Percent Auto 15.4 % (20-40); MANUAL DIFF FLAG SCAN; Mean Corpuscular HGB Conc 33.5 g/dl (31.0-36.0); Mean Corpuscular Hemoglobin 32.6 pg (27.0-33.0); Mean Corpuscular Volume 97.2 fL (80.0-98.0); Mean Platelet Volume 11.2 fL (9.4-12.4); Monocytes Absolute Auto 0.2 X10*3/uL (0.1-1.2); Monocytes Percent Auto 5.8 % (2-11); Neutrophils Absolute Auto 2.6 x10*3/uL (2.0-8.3); Neutrophils Percent Auto 70.4 % (45-73); Platelet Count 146 X10*3/uL (160-400); Red Blood Count 3.22 X10*6/uL (4.60-5.80); Red Cell Distribution Width 14.1 % (11.0-16.0); SCAN SMEAR FLAG 1; White Blood Count 3.6 X10*3/uL (4.8-10.8)
[2024-02-05 11:25] LABS: SLIDE REVIEW VERIFIED
[2024-02-05 11:29] LABS: Alanine Aminotransferase 55 U/L (0-40); Albumin Level 3.4 g/dL (3.5-5.0); Alkaline Phosphatase 73 U/L (39-117); Anion Gap 16 (12-20); Aspartate Amino Transferase 82 U/L (5-37); Bilirubin Total 0.6 mg/dL (0.0-1.0); Blood Urea Nitrogen 16 mg/dL (9-16); Carbon Dioxide 25 mmol/L (22-29); Chloride 99 mmol/L (96-108); Estimated Glomerular Filt Rate 52; Glucose Random 112 mg/dL (60-115); Iron 55 mcg/dL (45-160); Percent Iron Saturation 29 % (15-50); Potassium 4.1 mmol/L (3.3-5.1); Sodium 136 mmol/L (135-145); Total Iron Binding Capacity 188 mcg/dL (228-428); Total Protein 6.8 g/dL (6.5-8.0); Unsaturated Iron Binding 133 ug/dL
[2024-02-05 11:33] LABS: Thyroid Stimulating Hormone 1.85 uIU/mL (0.32-4.0)
[2024-02-05 11:44] LABS: Vitamin B12 627 pg/mL (200-900)
--- OUTSIDE RECORDS SUMMARY | 2024-02-06 19:08 | XMS_ITS | Clinical Summary ---
Author Organization Unknown Care Team Providers Care Rn Occupational Name Role Phone REBEKAH PATEL, NUZHAT Unavailable Unavailable ERVIN RN, LINDSAY Unavailable Unavailable MICHAEL PT, TEN Unavailable Unavailable SPAFRANCIS OT, CHARI Unavailable Unavailable [facility] SURVEY STATISTICIAN, YANET Unavailable Unavailab le Payers Payer Name Policy Type Policy Number Effective Date Expira tion Date MEDICARE.NGS.PDGM [id number] Problems Condition Name Condition Details Condition Category Status Onset Date Resolution Date Last Treatment Date Treating Clinician Comments DISPL INTERTROCH FX R FEMUR, SUBS FOR CLOS FX W ROUTN HEAL Active 2022-02 00:00: 00 PAROXYSMAL ATRIAL FIBRILLATION Active 2022-02 00:00: 00 ESSENTIAL (PRIMARY) HYPERTENSION Active 11-14 00:00: 00 ANEMIA, UNSPECIFIED Active 2022-02 00:00: 00 PERIPHERAL VASCULAR DISEASE, UNSPECIFIED Active 11-19 00:00: 00 RHEUMATOID ARTHRITIS, UNSPECIFIED Active 10-29 00:00: 00 UNSPECIFIED PROTEIN-HAL IVONE MALNUTRITION Active 11-01 00:00: 00 BENIGN PROSTATIC HYPERPLASIA WITHOUT LOWER URINRY TRACT SYMP Active 10-29 00:00: 00 UNSPECIFIED FALL, SUBSEQUENT ENCOUNTER Active 2022-02 00:00: 00 Allergies, Adverse Reactions, Alerts Allergy Name Allergy Type Status Severity Reaction(s) Onset Date Inactive Date Treating Clinician Comments NO KNOWN ALLERGIES Propensity to adverse reactions Active 2022-02 09:11: 48 Medications Ordered Medication Name Filled Medication Name Start Date Stop Date Current Medication? Ordering Clinician Indication Dosage Frequency Signature (SIG) Comments Components Daily Multi-Vitam in tablet 2022-02 00:00: 00 Yes [id number] SUPPLEMENT 1 tablet DAILY 1 tablet DAILY (route: oral) Med Classific ation: Electroly te Balance-N utritiona l Products Eliquis 2.5 mg tablet 2022-02 00:00: 00 Yes [id number] AFIB 1 tablet 2 TIMES DAILY 1 tablet 2 TIMES DAILY (route: oral) Med Classific ation: Hematolog ical Agents famotidine 20 mg tablet 2022-02 00:00: 00 Yes [id number] GERD 1 tablet 2 TIMES DAILY 1 tablet 2 TIMES DAILY (route: oral) Med Classific ation: Gastroint estinal Therapy Agents finasteride 5 mg tablet 2022-02 00:00: 00 Yes [id number] BPH 1 tablet DAILY 1 tablet DAILY (route: oral) Med Classific ation: Genitouri nary Therapy folic acid 1 mg tablet 2022-02 00:00: 00 Yes [id number] SUPPLEMENT 1 tablet DAILY 1 tablet DAILY (route: oral) Med Classific ation: Electroly te Balance-N utritiona l Products melatonin 5 mg capsule 2022-02 00:00: 00 Yes [id number] SLEEP AIDE 1 capsule BEDTIME 1 capsule BEDTIME (route: oral) Med Classific ation: Central Nervous System Agents tramadol 50 mg tablet 2022-02 00:00: 00 Yes [id number] PAIN 1 tablet EVERY 6 HOURS 1 tablet EVERY 6 HOURS (route: oral) Med Classific ation: Analgesic , Anti-infl ammatory or Antipyret ic Trexall 10 mg tablet 2022-02 00:00: 00 Yes [id number] ARTHRITIS 1 tablet WEEKLY 1 tablet WEEKLY (route: oral) Med Classific ation: Antineopl astics Vital Signs Vital Name Observation Time Observation Value Commen ts Temperature 2023-01-30 11:32:00.000 97.7 [degF] Temperature 2023-01-22 12:59:00.000 97.6 [degF] Temperature 2023-01-09 11:22:00.000 98.7 [degF] Temperature 2023-01-04 13:34:00.000 97.5 [degF] Temperature 2022-12-25 09:35:00.000 98.2 [degF] Temperature 2022-12-22 09:16:00.000 97.7 [degF] Temperature 2022-12-20 10:20:00.000 98.2 [degF] Temperature 2022-12-19 09:49:00.000 98 [degF] Temperature 2022-12-15 12:56:00.000 98.2 [degF] Temperature 2022-12-13 09:37:00.000 97.4 [degF] Temperature 2022-12-11 14:09:00.000 97.2 [degF] Temperature 2022-12-11 12:36:00.000 97.4 [degF] Temperature 2022-12-08 13:26:00.000 98.2 [degF] Temperature 2022-12-07 12:24:00.000 97.7 [degF] Temperature 2022-12-06 09:43:00.000 97.5 [degF] BMI (%) 2022-12-06 09:43:00.000 22 kg/m2 Height 2022-12-06 09:43:00.000 69 [in_us] Pulse 2023-01-30 11:32:00.000 78 /min Pulse 2023-01-22 12:59:00.000 99 /min Pulse 2023-01-09 11:22:00.000 70 /min Pulse 2023-01-04 13:34:00.000 69 /min Pulse 2022-12-25 09:35:00.000 80 /min Pulse 2022-12-22 09:16:00.000 88 /min Pulse 2022-12-20 10:20:00.000 93 /min Pulse 2022-12-19 09:49:00.000 81 /min Pulse 2022-12-15 12:56:00.000 88 /min Pulse 2022-12-13 09:37:00.000 91 /min Pulse 2022-12-11 14:09:00.000 76 /min Pulse 2022-12-11 12:36:00.000 64 /min Pulse 2022-12-08 13:26:00.000 85 /min Pulse 2022-12-07 12:24:00.000 84 /min Pulse 2022-12-06 09:43:00.000 86 /min O2 Saturation (%) 2023-01-22 12:59:00.000 99 % O2 Saturation (%) 2023-01-09 11:22:00.000 99 % O2 Saturation (%) 2022-12-25 09:35:00.000 97 % O2 Saturation (%) 2022-12-20 10:20:00.000 98 % O2 Saturation (%) 2022-12-19 09:49:00.000 96 % O2 Saturation (%) 2022-12-15 12:56:00.000 99 % O2 Saturation (%) 2022-12-13 09:37:00.000 99 % O2 Saturation (%) 2022-12-11 14:09:00.000 99 % O2 Saturation (%) 2022-12-11 12:36:00.000 99 % O2 Saturation (%) 2022-12-08 13:26:00.000 99 % O2 Saturation (%) 2022-12-07 12:24:00.000 98 % O2 Saturation (%) 2022-12-06 09:43:00.000 99 % Respirations 2023-01-30 11:32:00.000 18 /min Respirations 2023-01-22 12:59:00.000 18 /min Respirations 2023-01-09 11:22:00.000 18 /min Respirations 2023-01-04 13:34:00.000 18 /min Respirations 2022-12-25 09:35:00.000 18 /min Respirations 2022-12-22 09:16:00.000 18 /min Respirations 2022-12-20 10:20:00.000 18 /min Respirations 2022-12-19 09:49:00.000 18 /min Respirations 2022-12-15 12:56:00.000 18 /min Respirations 2022-12-13 09:37:00.000 18 /min Respirations 2022-12-11 14:09:00.000 18 /min Respirations 2022-12-11 12:36:00.000 18 /min Respirations 2022-12-08 13:26:00.000 18 /min Respirations 2022-12-07 12:24:00.000 18 /min Respirations 2022-12-06 09:43:00.000 18 /min Weight (lbs) 2022-12-11 14:09:00.000 150 [lb_av] Weight (lbs) 2022-12-06 09:43:00.000 151 [lb_av] Systolic Blood Pressure 2023-01-30 11:32:00.000 120 mm [Hg] Systolic Blood Pressure 2023-01-22 12:59:00.000 132 mm [Hg] Systolic Blood Pressure 2023-01-09 11:22:00.000 110 mm [Hg] Systolic Blood Pressure 2023-01-04 13:34:00.000 108 mm [Hg] Systolic Blood Pressure 2022-12-25 09:35:00.000 125 mm [Hg] Systolic Blood Pressure 2022-12-22 09:16:00.000 124 mm [Hg] Systolic Blood Pressure 2022-12-20 10:20:00.000 120 mm [Hg] Systolic Blood Pressure 2022-12-19 09:49:00.000 120 mm [Hg] Systolic Blood Pressure 2022-12-15 12:56:00.000 118 mm [Hg] Systolic Blood Pressure 2022-12-13 09:37:00.000 119 mm [Hg] Systolic Blood Pressure 2022-12-11 14:09:00.000 108 mm [Hg] Systolic Blood Pressure 2022-12-11 12:36:00.000 105 mm [Hg] Systolic Blood Pressure 2022-12-08 13:26:00.000 118 mm [Hg] Systolic Blood Pressure 2022-12-07 12:24:00.000 124 mm [Hg] Systolic Blood Pressure 2022-12-06 09:43:00.000 128 mm [Hg] Diastolic Blood Pressure 2023-01-30 11:32:00.000 60 mm [Hg] Diastolic Blood Pressure 2023-01-22 12:59:00.000 75 mm [Hg] Diastolic Blood Pressure 2023-01-09 11:22:00.000 70 mm [Hg] Diastolic Blood Pressure 2023-01-04 13:34:00.000 60 mm [Hg] Diastolic Blood Pressure 2022-12-25 09:35:00.000 75 mm [Hg] Diastolic Blood Pressure 2022-12-22 09:16:00.000 64 mm [Hg] Diastolic Blood Pressure 2022-12-20 10:20:00.000 68 mm [Hg] Diastolic Blood Pressure 2022-12-19 09:49:00.000 70 mm [Hg] Diastolic Blood Pressure 2022-12-15 12:56:00.000 66 mm [Hg] Diastolic Blood Pressure 2022-12-13 09:37:00.000 63 mm [Hg] Diastolic Blood Pressure 2022-12-11 14:09:00.000 68 mm [Hg] Diastolic Blood Pressure 2022-12-11 12:36:00.000 60 mm [Hg] Diastolic Blood Pressure 2022-12-08 13:26:00.000 60 mm [Hg] Diastolic Blood Pressure 2022-12-07 12:24:00.000 66 mm [Hg] Diastolic Blood Pressure 2022-12-06 09:43:00.000 72 mm [Hg] Plan of Treatment Planned Activity Planned Date Details Comments Future Scheduled Test MEDICATION MANAGEMENT; SKILLED NURSE TO REVIEW MEDICATIONS FOR INTERACTIONS, EFFECTIVENESS OF DRUG THERAPY, AND SIGNS/SYMPTOMS OF ADVERSE REACTIONS. MAY INSTRUCT AND REINFORCE MEDICATION TEACHING RELATED TO THE USE OF MEDICATIONS, DOSAGE, FREQUENCY, PURPOSE, SIDE EFFECTS, AND TO REPORT COMPLICATIONS. [code = MEDICATION MANAGEMENT; SKILLED NURSE TO REVIEW MEDICATIONS FOR INTERACTIONS, EFFECTIVENESS OF DRUG THERAPY, AND SIGNS/SYMPTOMS OF ADVERSE REACTIONS. MAY INSTRUCT AND REINFORCE MEDICATION TEACHING RELATED TO THE USE OF MEDICATIONS, DOSAGE, FREQUENCY, PURPOSE, SIDE EFFECTS, AND TO REPORT COMPLICATIONS.] Future Scheduled Test FALL REDUC TION MANAGEMENT; NURSING TO PROVIDE SKILLED ASSESSMENT, EDUCATION, AND INTERVENTION TO IDENTIFY FALL RISK FACTORS SUCH MEDICATIONS THAT MAY CAUSE DIZZINESS, CHRONIC DISEASES, PSYCHOLOGICAL FACTORS, AND EMPOWER/EDUCATE PATIENT/CAREGIVER TO MINIMIZE FALL RISK. [code = FALL REDUCTION MANAGEMENT; NURSING TO PROVIDE SKILLED ASSESSMENT, EDUCATION, AND INTERVENTION TO IDENTIFY FALL RISK FACTORS SUCH MEDICATIONS THAT MAY CAUSE DIZZINESS, CHRONIC DISEASES, PSYCHOLOGICAL FACTORS, AND EMPOWER/EDUCATE PATIENT/CAREGIVER TO MINIMIZE FALL RISK.] Future Scheduled Test RN TO OBSE RVE, ASSESS, EVALUATE, AND DEVELOP AN INDIVIDUALIZED PLAN OF CARE. AGENCY MAY ACCEPT ORDERS FROM CONSULTING PHYSICIANS 02/22. RN TO OBSERVE AND ASSESS, SLUMBER ROOM ATTENDANT TO OBSERVE FOR RISK FOR FALLS AND INSTRUCT IN FALL PREVENTION, HOME SAFETY, MEDICATION MANAGEMENT, INFECTION PREVENTION, AND NUTRITION MANAGEMENT. SN MAY PERFORM O2 SATURATION LEVEL ON ADMISSION AND PRN 02/22 TO ASSESS PATIENT, WITH NOTIFICATION TO THE PHYSICIAN IF SATURATION IS 90% IN THE ABSENCE OF MORE SPECIFIC PARAMETERS FROM THE PHYSICIAN. AGENCY MAY PERFORM A RESUMPTION OF CARE VISIT FOLLOWING ANY HOSPITAL ADMISSION. SKILLED NURSE TO MONITOR CO-MORBID CONDITIONS LISTED ON THE PLAN OF CARE AND ANY NEW CONDITIONS THAT PRESENT THEMSELVES DURING THIS EPISODE TO IDENTIFY CHANGES AND INTERVENE TO MINIMIZE COMPLICATIONS. [code = RN TO OBSERVE, ASSESS, EVALUATE, AND DEVELOP AN INDIVIDUALIZED PLAN OF CARE. AGENCY MAY ACCEPT ORDERS FROM CONSULTING PHYSICIANS 02/22. RN TO OBSERVE AND ASSESS, SLUMBER ROOM ATTENDANT TO OBSERVE FOR RISK FOR FALLS AND INSTRUCT IN FALL PREVENTION, HOME SAFETY, MEDICATION MANAGEMENT, INFECTION PREVENTION, AND NUTRITION MANAGEMENT. SN MAY PERFORM O2 SATURATION LEVEL ON ADMISSION AND PRN 02/22 TO ASSESS PATIENT, WITH NOTIFICATION TO THE PHYSICIAN IF SATURATION IS 90% IN THE ABSENCE OF MORE SPECIFIC PARAMETERS FROM THE PHYSICIAN. AGENCY MAY PERFORM A RESUMPTION OF CARE VISIT FOLLOWING ANY HOSPITAL ADMISSION. SKILLED NURSE TO MONITOR CO-MORBID CONDITIONS LISTED ON THE PLAN OF CARE AND ANY NEW CONDITIONS THAT PRESENT THEMSELVES DURING THIS EPISODE TO IDENTIFY CHANGES AND INTERVENE TO MINIMIZE COMPLICATIONS.] Future Scheduled Test PAIN MANAG EMENT; SKILLED NURSE TO OBSERVE, ASSESS, AND PROVIDE EDUCATION ON PAIN MANAGEMENT TECHNIQUES. [code = PAIN MANAGEMENT; SKILLED NURSE TO OBSERVE, ASSESS, AND PROVIDE EDUCATION ON PAIN MANAGEMENT TECHNIQUES.] Future Scheduled Test RISK FOR H OSPITALIZATION; SKILLED NURSE TO INSTRUCT PATIENT/CAREGIVER ON RISK FOR HOSPITALIZATION/EMERGENCY ROOM VISITS, TEACH SIGNS AND SYMPTOMS THAT PUT PATIENT AT RISK, WHEN TO NOTIFY NURSE/PHYSICIAN OF COMPLICATIONS/DECLINE, AND WHEN TO CALL 911. [code = RISK FOR HOSPITALIZATION; SKILLED NURSE TO INSTRUCT PATIENT/CAREGIVER ON RISK FOR HOSPITALIZATION/EMERGENCY ROOM VISITS, TEACH SIGNS AND SYMPTOMS THAT PUT PATIENT AT RISK, WHEN TO NOTIFY NURSE/PHYSICIAN OF COMPLICATIONS/DECLINE, AND WHEN TO CALL 911.] Future Scheduled Test CARDIOVASC ULAR SYSTEM; SKILLED NURSE TO ASSESS AND TEACH RELATED TO ALTERED CARDIOVASCULAR STATUS TO MINIMIZE COMPLICATIONS AND REDUCE HOSPITALIZATION. [code = CARDIOVASCULAR SYSTEM; SKILLED NURSE TO ASSESS AND TEACH RELATED TO ALTERED CARDIOVASCULAR STATUS TO MINIMIZE COMPLICATIONS AND REDUCE HOSPITALIZATION.] Future Scheduled Test ATRIAL FIB RILLATION MANAGEMENT; SKILLED NURSE TO ASSESS/TEACH WARNING SIGNS AND SYMPTOMS TO AVOID HOSPITALIZATION. [code = ATRIAL FIBRILLATION MANAGEMENT; SKILLED NURSE TO ASSESS/TEACH WARNING SIGNS AND SYMPTOMS TO AVOID HOSPITALIZATION.] Future Scheduled Test SKIN INTEG RITY - SN OBSERVE AND ASSESS INTEGUMENTARY STATUS TO IDENTIFY CHANGES AND INTERVENE TO MINIMIZE COMPLICATIONS. PROVIDE SKILLED TEACHING OF GENERAL WOUND AND SKIN CARE AND PREVENTION RELATED TO POTENTIAL FOR OR ACTUAL ALTERED SKIN INTEGRITY [code = SKIN INTEGRITY - SN OBSERVE AND ASSESS INTEGUMENTARY STATUS TO IDENTIFY CHANGES AND INTERVENE TO MINIMIZE COMPLICATIONS. PROVIDE SKILLED TEACHING OF GENERAL WOUND AND SKIN CARE AND PREVENTION RELATED TO POTENTIAL FOR OR ACTUAL ALTERED SKIN INTEGRITY ] Future Scheduled Test AGENCY MAY PERFORM A RESUMPTION OF CARE VISIT FOLLOWING ANY HOSPITAL ADMISSION. PHYSICAL THERAPY TO EVALUATE, ASSESS AND MONITOR, PROVIDE SKILLED THERAPEUTIC INTERVENTION, ACTIVITY, EDUCATION, AND TRAINING TO ADDRESS: TRANSFER TRAINING (PT) GAIT TRAINING (PT) NEUROMUSCULAR RE-EDUCATION / BALANCE RETRAINING (PT) THERAPEUTIC EXERCISES (PT) STAIR TRAINING (PT) OXYGEN SATURATION (PT). NOTIFY MD IF 02SATS BELOW 90% AFTER 10 MIN OF REST. ORTHOPEDIC SURGICAL AFTERCARE (PT) MAY TEACH PATIENT APPLICATION OF CRYOTHERAPY FOR PAIN AND/OR SWELLING UP TO 20 MIN AT A TIME OVER INCISION/JOINT FEMUR FRACTURE/ORIF SELF-MANAGEMENT (PT) IDENTIFY FALL RISK FACTORS AND ESTABLISH HOME EXERCISE PROGRAM TO MINIMIZE FALL RISK. MAY TEACH THE PATIENT FLOOR RECOVERY WHEN CLINICALLY APPROPRIATE (PT) [code = AGENCY MAY PERFORM A RESUMPTION OF CARE VISIT FOLLOWING ANY HOSPITAL ADMISSION. PHYSICAL THERAPY TO EVALUATE, ASSESS AND MONITOR, PROVIDE SKILLED THERAPEUTIC INTERVENTION, ACTIVITY, EDUCATION, AND TRAINING TO ADDRESS: TRANSFER TRAINING (PT) GAIT TRAINING (PT) NEUROMUSCULAR RE-EDUCATION / BALANCE RETRAINING (PT) THERAPEUTIC EXERCISES (PT) STAIR TRAINING (PT) OXYGEN SATURATION (PT). NOTIFY MD IF 02SATS BELOW 90% AFTER 10 MIN OF REST. ORTHOPEDIC SURGICAL AFTERCARE (PT) MAY TEACH PATIENT APPLICATION OF CRYOTHERAPY FOR PAIN AND/OR SWELLING UP TO 20 MIN AT A TIME OVER INCISION/JOINT FEMUR FRACTURE/ORIF SELF-MANAGEMENT (PT) IDENTIFY FALL RISK FACTORS AND ESTABLISH HOME EXERCISE PROGRAM TO MINIMIZE FALL RISK. MAY TEACH THE PATIENT FLOOR RECOVERY WHEN CLINICALLY APPROPRIATE (PT)] Future Scheduled Test AGENCY MAY PERFORM A RESUMPTION OF CARE VISIT FOLLOWING ANY HOSPITAL ADMISSION. OCCUPATIONAL THERAPY TO EVALUATE, ASSESS, AND MONITOR, PROVIDE SKILLED THERAPEUTIC INTERVENTION, ACTIVITY, EDUCATION, AND TRAINING TO ADDRESS; LE WEAKNESS, IMPAIRED BALANCE, FALL PREVENTION, DECLINE IN BATHING AND SHOWER TRANSFERS. BATHING/SHOWERING (OT) OXYGEN SATURATION (OT); NOTIFY MD IF O2 SATS BELOW 90% AFTER 10 MIN OF REST FALL REDUCTION (OT) [code = AGENCY MAY PERFORM A RESUMPTION OF CARE VISIT FOLLOWING ANY HOSPITAL ADMISSION. OCCUPATIONAL THERAPY TO EVALUATE, ASSESS, AND MONITOR, PROVIDE SKILLED THERAPEUTIC INTERVENTION, ACTIVITY, EDUCATION, AND TRAINING TO ADDRESS; LE WEAKNESS, IMPAIRED BALANCE, FALL PREVENTION, DECLINE IN BATHING AND SHOWER TRANSFERS. BATHING/SHOWERING (OT) OXYGEN SATURATION (OT); NOTIFY MD IF O2 SATS BELOW 90% AFTER 10 MIN OF REST FALL REDUCTION (OT)] Goal 2023-01-30 Patient Goal - T O GET BACK TO MOVING THE [place] AND [place] Goal Provider Goal - PATIENT/CAREGIVER TO VERBALIZE, AND CONSISTENTLY DEMONSTRATE EFFECTIVE, SAFE MANAGEMENT OF MEDICATION INCLUDING KNOWLEDGE OF EFFECTIVENESS, POTENTIAL SIDE EFFECTS AND DRUG REACTIONS AND WHEN TO CONTACT THE APPROPRIATE CARE PROVIDER. PATIENT/CAREGIVER WILL BE ABLE TO VERBALIZE UNDERSTANDING OF MEDICATION REGIMEN AND ACCURATELY TAKE MEDICATIONS PRESCRIBED WITHOUT ADVERSE EFFECTS BY 02/22 Goal Provider Goal - PATIENT/CAREGIVER ABLE TO IDENTIFY FALL RISK FACTORS AND IMPLEMENT STRATEGIES TO MINIMIZE FALL RISK. PATIENT/CAREGIVER WILL VERBALIZE/DEMONSTRATE AN ABILITY TO ADHERE TO FALL REDUCTION SELF MANAGEMENT AND LIFE-STYLE CHANGES AT DISCHARGE. PERSONAL GOAL(S) STATED BY PATIENT/CAREGIVER WILL BE MET BY 02/22 Goal Provider Goal - A PLAN OF CARE WILL BE ESTABLISHED THAT MEETS THE PATIENTS NEEDS. PATIENT WILL DEMONSTRATE OXYGEN SATURATION WITHIN NORMAL LIMITS OR PATIENTS OPTIMAL LEVEL ESTABLISHED BY THE PHYSICIAN THROUGHOUT CARE. CHANGES TO CO-MORBID CONDITIONS AND ANY NEW CONDITIONS WILL BE IDENTIFIED AND REPORTED TO THE PHYSICIAN. Goal Provider Goal - PATIENT / CAREGIVER WILL VERBALIZE / DEMONSTRATE UNDERSTANDING OF PAIN CONTROL MEASURES BY 02/22 Goal Provider Goal - PATIENT/CAREGIVER WILL VERBALIZE UNDERSTANDING OF SIGNS AND SYMPTOMS THAT PUT THE PATIENT AT RISK FOR HOSPITALIZATION /EMERGENCY ROOM VISITS, WHEN TO NOTIFY NURSE/PHYSICIAN OF COMPLICATIONS/DECLINE AND WHEN TO CALL 911. Goal Provider Goal - PATIENT / CAREGIVER WILL VERBALIZE/DEMONSTRATE UNDERSTANDING OF MEASURES TO MANAGE ALTERED CARDIOVASCULAR STATUS BY 02/22 Goal Provider Goal - PATIENT / CAREGIVER WILL VERBALIZE/DEMONSTRATE AN ABILITY TO ADHERE TO SELF-MANAGEMENT OF ATRIAL FIBRILLATION TO MINIMIZE COMPLICATIONS AND AVOID HOSPITALIZATION BY END OF EPISODE. Goal Provider Goal - CHANGES IN SKIN INTEGRITY STATUS WILL BE IDENTIFIED AND REPORTED TO THE PHYSICIAN FOR PROMPT INTERVENTION. PATIENT / CAREGIVER WILL VERBALIZE/DEMONSTRATE ADEQUATE KNOWLEDGE OF INTEGUMENTARY STATUS AND APPROPRIATE MEASURES TO PROMOTE SKIN INTEGRITY AND PREVENT INJURY BY EOE Goal Provider Goal - PT STG: PATIENT WILL DEMONSTRATE IMPROVED TRANSFERS FROM SBA TO INDEPENDENT WITH UE ASSIST WITHIN 3 WEEKS PT STG: PATIENT WILL DEMONSTRATE INDEPENDENCE WITH HOUSEHOLD AMBULATION AT ROLLATOR LEVEL WITHIN 4 WEEKS PT LTG: PATIENT WILL DEMONSTRATE IMPROVED AMBULATION FROM SBA WITH WALKER TO INDEPENDENT WITH CANE WITHIN 9 WEEKS PT LTG: PATIENT WILL DEMONSTRATE IMPROVED BALANCE AND SENSORY INTEGRATION EVIDENCED BY MCTSIB SCORE IMPROVING FROM 2/4 TO 3/4 WITHIN 9 WEEKS PT LTG: PATIENT WILL DEMONSTRATE REDUCED FALL RISK EVIDENCED BY TUG TEST (CUT SCORE >11 SECONDS INDICATES INCREASED FALL RISK) IMPROVING FROM 20 SECONDS TO 11 SECONDS WITHIN 9 WEEKS PT STG: PATIENT WILL DEMONSTRATE INDEPENDENCE WITH LOWER EXTREMITY HOME EXERCISE PROGRAM WITHIN 4 WEEKS PT LTG: PATIENT WILL DEMONSTRATE IMPROVED FUNCTIONAL STRENGTH EVIDENCED BY FIVE TIMES SIT TO STAND TEST (CUT SCORE >12 SECONDS INDICATES AN INCREASED FALL RISK) IMPROVING FROM 20 SECONDS TO 14 SECONDS WITHIN 9 WEEKS PT LTG: PATIENT WILL DEMONSTRATE INCREASED STRENGTH OF RIGHT LES FROM 3/5 TO 4/5 WITHIN 9 WEEKS IN ORDER TO IMPROVE SAFETY AND STABILITY WITH GAIT AND STAIRS PT LTG: PATIENT WILL DEMONSTRATE IMPROVED ABILITY TO SAFELY NEGOTIATE STAIRS FROM CGA TO INDEPENDENT WITH RAIL WITHIN 9 WEEKS PATIENT WILL MAINTAIN OXYGEN SATURATION WITHIN PHYSICIAN ORDERED PARAMETERS THROUGHOUT EPISODE OF CARE PATIENT WILL DEMONSTRATE NORMAL HEALING FOLLOWING SURGERY WITH NO COMPLICATIONS BY END OF EPISODE. PT GOAL: PATIENT WILL DEMONSTRATE OPTIMAL OUTCOMES INCLUDING INCREASED STRENGTH AND MOBILITY WITH NO COMPLICATIONS FOLLOWING FEMUR FRACTURE/ORIF BY END OF EPISODE. PATIENT/CAREGIVER WILL DEMONSTRATE ADHERENCE TO FALL REDUCTION SELF MANAGEMENT TO MINIMIZE FALL BY END OF EPISODE. Goal Provider Goal - OT LTG: PATIENT WILL DEMONSTRATE IMPROVED ABILITY TO PERFORM BATHING/SHOWERING FROM SBA TO INDEPENDENT WITHIN 2 WEEKS. OT LTG: PATIENT WILL DEMONSTRATE IMPROVED ABILITY TO PERFORM BATH/SHOWER TRANSFER FROM SBA TO INDEPENDENT WITHIN 2 WEEKS. PATIENT WILL MAINTAIN OXYGEN SATURATION WITHIN PHYSICIAN ORDERED PARAMETERS THROUGHOUT THE EPISODE OF CARE. PATIENT/CAREGIVER WILL BE ABLE TO IMPLEMENT OCCUPATIONAL THERAPY EDUCATION RECOMMENDATIONS SPECIFIC TO FALL REDUCTION FOR IMPROVED ADL/IADL COMPLETION AND HOME SAFETY BY END OF EPISODE. Reason for Visit [facility] THE COMMUNITY Encounters Start Date/Time End Date/Time Encounter Type Admission Type Attending [facility] Care Department Encounter ID Discharge Date Discharge Status Discharge Condition Discharge Reason Percent Goals Met 2022-12-06 00:00:00 2023-01-30 00:00:00 Outpatient NEW ADMISSION TEN RODRIGUEZ [facility] [id number] 2023-01-30 00:00:00 DISCHARGE TO HOME OR SELF CARE [facility]DEPENDEN T IN THE COMMUNITY HH OR PAL- GOALS MET 80.56
--- OUTSIDE RECORDS SUMMARY | 2024-02-06 19:08 | XMS_ITS | Clinical Summary ---
Author Organization Unknown Care Team Providers Care Aerial Advertiser Name Role Phone REBEKAH PATEL, NUZHAT Unavailable Unavailable ERVIN RN, LINDSAY Unavailable Unavailable MICHAEL PT, TEN Unavailable Unavailable SPAFRANCIS OT, CHARI Unavailable Unavailable [employer] SILK PRINTER, YANET Unavailable Unavailab le Payers Payer Name Policy Type Policy Number Effective Date Expira tion Date MEDICARE.NGS.PDGM [id number] Problems Condition Name Condition Details Condition Category [...] Multi-Vitam in tablet 2022-02 00:00: 00 Yes [id number] SUPPLEMENT 1 tablet DAILY 1 tablet DAILY (route: oral) Med Classific ation: Electroly te Balance-N utritiona l Products Eliquis 2.5 mg tablet 2022-02 00:00: 00 Yes [id number] AFIB 1 tablet 2 TIMES DAILY 1 tablet 2 TIMES DAILY (route: oral) Med Classific ation: Hematolog ical Agents famotidine 20 mg tablet 2022-02 00:00: 00 Yes [id number] GERD 1 tablet 2 TIMES DAILY 1 tablet 2 TIMES DAILY (route: oral) Med Classific ation: Gastroint estinal Therapy Agents finasteride 5 mg tablet 2022-02 00:00: 00 Yes [id number] BPH 1 tablet DAILY 1 tablet DAILY (route: oral) Med Classific ation: Genitouri nary Therapy folic acid 1 mg tablet 2022-02 00:00: 00 Yes [id number] SUPPLEMENT 1 tablet DAILY 1 tablet DAILY (route: oral) Med Classific ation: Electroly te Balance-N utritiona l Products melatonin 5 mg capsule 2022-02 00:00: 00 Yes [id number] SLEEP AIDE 1 capsule BEDTIME 1 capsule BEDTIME (route: oral) Med Classific ation: Central Nervous System Agents tramadol 50 mg tablet 2022-02 00:00: 00 Yes [id number] PAIN 1 tablet EVERY 6 HOURS 1 tablet EVERY 6 HOURS (route: oral) Med Classific ation: Analgesic , Anti-infl ammatory or Antipyret ic Trexall 10 mg tablet 2022-02 00:00: 00 Yes [id number] ARTHRITIS 1 tablet WEEKLY 1 tablet WEEKLY [...] PHYSICIANS 02/22. RN TO OBSERVE AND ASSESS, SAMPLER RADIOACTIVE WASTE TO OBSERVE FOR RISK FOR FALLS AND [...] PHYSICIANS 02/22. RN TO OBSERVE AND ASSESS, SAMPLER RADIOACTIVE WASTE TO OBSERVE FOR RISK FOR FALLS AND [...] End Date/Time Encounter Type Admission Type Attending [facility] Care Department Encounter ID Discharge Date Discharge Status Discharge Condition Discharge Reason Percent Goals Met 2022-12-06 00:00:00 2023-01-30 00:00:00 Outpatient NEW ADMISSION TEN RODRIGUEZ [facility] [id number] 2023-01-30 00:00:00 DISCHARGE TO HOME OR SELF CARE INDEPENDEN T IN THE COMMUNITY HH OR PAL- GOALS MET 80.56
== END 2024-02-05 08:53 | disposition home or self-care (01) ==
LOC: HO.10HDL 08:52
PROVIDERS: Visit Provider Internal Medicine
DX: R53.83 Other fatigue (principal); D64.9 Anemia, unspecified; I48.91 Unspecified atrial fibrillation; N18.9 Chronic kidney disease, unspecified; I73.9 Peripheral vascular disease, unspecified
CPT/HCPCS: 36415; 80053; 82607; 83540; 84443; 85025

== ENCOUNTER 2024-02-25 10:44 | Emergency (ER) | payer MEDICARE, OTHER, SELFPAY ==
--- NOTE | ~2024-02-25 | XR_ITS ---
EXAMINATION: XR CHEST CLINICAL INFORMATION: sob COMPARISON: Chest 06/27/2012 TECHNIQUE: 2 views of the chest were obtained. FINDINGS: Lungs are hyperinflated but clear acute process. The heart size and pulmonary vascularity is normal. No gross bony abnormality seen. XR/XR chest 2V IMPRESSION: Hyperinflated lungs without acute process. Electronically signed by: Parish Walter MD 02/25/2024 11:57 AM EST
--- NOTE | ~2024-02-25 | CT_ITS ---
EXAMINATION: CT ABDOMEN AND PELVIS WITH CONTRAST CLINICAL INFORMATION: Weight loss, early satiety and fatigue COMPARISON: Ultrasound abdomen 07/30/2023 TECHNIQUE: Multidetector volumetric images were obtained from the superior aspect of the liver through the pubic symphysis following administration 85 mL of Omnipaque 350 intravenous contrast. Sagittal and coronal reformatted images were obtained on the technologist's workstation. Oral contrast: No This CT examination was performed using dose optimization techniques as appropriate, variously including the following: *Automated exposure control *Adjustment of mA and/or kV according to patient size (this includes techniques or standardized protocols for targeted exams where dose is matched to indication/reason for exam; i.e. extremities or head) *Use of iterative reconstruction technique DLP: 377 mGy-cm FINDINGS: LUNG BASES: There is dependent bibasilar atelectasis. Heart size is normal. LIVER, GALLBLADDER, AND BILIARY TREE: The liver is normal in size, shape, and attenuation. No focal hepatic lesion or biliary ductal dilatation is present. The gallbladder is unremarkable with no evidence of radiopaque gallstones, gallbladder wall thickening, or obvious pericholecystic inflammatory changes. PANCREAS: Unremarkable. SPLEEN: Unremarkable. ADRENAL GLANDS: Unremarkable. KIDNEYS AND URETERS: The kidneys are normal in size, shape, and attenuation. No hydronephrosis, hydroureter, or calculi seen. No perinephric stranding. BLADDER: The bladder is nondistended with diffuse bladder wall thickening. No radiopaque calculi seen.. GASTROINTESTINAL TRACT: There is nondistended stomach with mural thickening. The distal spinal small bowel loops are fluid-filled in the pelvis but nondilated. The upper small bowel loops are normal caliber. Scattered stool and gas is seen in colon without distention. Appendix is not visualized. There is no free fluid in the pelvis. No free air seen. ABDOMINAL WALL: No significant hernia is appreciated. LYMPH NODES: Normal. VASCULAR: Unremarkable. PELVIC VISCERA: Unremarkable. OSSEOUS STRUCTURES: No aggressive lytic or sclerotic process seen. There is mild degenerative disc changes L4-5 and L5-S1 disc levels. CT/CT abdomen pelvis w IV con IMPRESSION: No acute intra-abdominal process seen. Mild constipation. Fleischner guidelines were followed. Electronically signed by: Parish Walter MD 02/25/2024 04:31 PM CLARISSA ZAMORANO
--- OUTSIDE RECORDS SUMMARY | 2024-02-25 10:50 | XMS_ITS | Clinical Summary ---
Author Organization Unknown Care Team Providers Care Cuff Slitter Name Role Phone REBEKAH PATEL, NUZHAT Unavailable Unavailable ERVIN RN, LINDSAY Unavailable Unavailable MICHAEL PT, TEN Unavailable Unavailable SPAFRANCIS OT, CHARI Unavailable Unavailable DARCI SPANISH INSTRUCTOR, YANET Unavailable Unavailab le Payers Payer Name Policy Type Policy Number Effective Date Expira tion Date MEDICARE.NGS.PDGM [id number] Problems Condition Name Condition Details Condition Category [...] Multi-Vitam in tablet 2022-02 00:00: 00 Yes [id number] SUPPLEMENT 1 tablet DAILY 1 tablet DAILY (route: oral) Med Classific ation: Electroly te Balance-N utritiona l Products Eliquis 2.5 mg tablet 2022-02 00:00: 00 Yes [id number] AFIB 1 tablet 2 TIMES DAILY 1 tablet 2 TIMES DAILY (route: oral) Med Classific ation: Hematolog ical Agents famotidine 20 mg tablet 2022-02 00:00: 00 Yes [id number] GERD 1 tablet 2 TIMES DAILY 1 tablet 2 TIMES DAILY (route: oral) Med Classific ation: Gastroint estinal Therapy Agents finasteride 5 mg tablet 2022-02 00:00: 00 Yes [id number] BPH 1 tablet DAILY 1 tablet DAILY (route: oral) Med Classific ation: Genitouri nary Therapy folic acid 1 mg tablet 2022-02 00:00: 00 Yes [id number] SUPPLEMENT 1 tablet DAILY 1 tablet DAILY (route: oral) Med Classific ation: Electroly te Balance-N utritiona l Products melatonin 5 mg capsule 2022-02 00:00: 00 Yes [id number] SLEEP AIDE 1 capsule BEDTIME 1 capsule BEDTIME (route: oral) Med Classific ation: Central Nervous System Agents tramadol 50 mg tablet 2022-02 00:00: 00 Yes [id number] PAIN 1 tablet EVERY 6 HOURS 1 tablet EVERY 6 HOURS (route: oral) Med Classific ation: Analgesic , Anti-infl ammatory or Antipyret ic Trexall 10 mg tablet 2022-02 00:00: 00 Yes [id number] ARTHRITIS 1 tablet WEEKLY 1 tablet WEEKLY [...] PHYSICIANS 02/22. RN TO OBSERVE AND ASSESS, MARBLE FINISHER TO OBSERVE FOR RISK FOR FALLS AND [...] PHYSICIANS 02/22. RN TO OBSERVE AND ASSESS, MARBLE FINISHER TO OBSERVE FOR RISK FOR FALLS AND [...] End Date/Time Encounter Type Admission Type Attending [facility] Care Department Encounter ID Discharge Date Discharge Status Discharge Condition Discharge Reason Percent Goals Met 2022-12-06 00:00:00 2023-01-30 00:00:00 Outpatient NEW ADMISSION TEN RODRIGUEZ [facility] [id number] 2023-01-30 00:00:00 DISCHARGE TO HOME OR SELF CARE INDEPENDEN T IN THE COMMUNITY HH OR PAL- GOALS MET 80.56
--- OUTSIDE RECORDS SUMMARY | 2024-02-25 10:50 | XMS_ITS | Clinical Summary ---
Author Organization Unknown Care Team Providers Care Singing Messenger Name Role Phone REBEKAH PATEL, NUZHAT Unavailable Unavailable ERVIN RN, LINDSAY Unavailable Unavailable MICHAEL PT, TEN Unavailable Unavailable SPAFRANCIS OT, CHARI Unavailable Unavailable [facility] INFUSION NURSE, YANET Unavailable Unavailab le Payers Payer Name Policy Type Policy Number Effective Date Expira tion Date MEDICARE.NGS.PDGM [id number] Problems Condition Name Condition Details Condition Category [...] Multi-Vitam in tablet 2022-02 00:00: 00 Yes [id number] SUPPLEMENT 1 tablet DAILY 1 tablet DAILY (route: oral) Med Classific ation: Electroly te Balance-N utritiona l Products Eliquis 2.5 mg tablet 2022-02 00:00: 00 Yes [id number] AFIB 1 tablet 2 TIMES DAILY 1 tablet 2 TIMES DAILY (route: oral) Med Classific ation: Hematolog ical Agents famotidine 20 mg tablet 2022-02 00:00: 00 Yes [id number] GERD 1 tablet 2 TIMES DAILY 1 tablet 2 TIMES DAILY (route: oral) Med Classific ation: Gastroint estinal Therapy Agents finasteride 5 mg tablet 2022-02 00:00: 00 Yes [id number] BPH 1 tablet DAILY 1 tablet DAILY (route: oral) Med Classific ation: Genitouri nary Therapy folic acid 1 mg tablet 2022-02 00:00: 00 Yes [id number] SUPPLEMENT 1 tablet DAILY 1 tablet DAILY (route: oral) Med Classific ation: Electroly te Balance-N utritiona l Products melatonin 5 mg capsule 2022-02 00:00: 00 Yes [id number] SLEEP AIDE 1 capsule BEDTIME 1 capsule BEDTIME (route: oral) Med Classific ation: Central Nervous System Agents tramadol 50 mg tablet 2022-02 00:00: 00 Yes [id number] PAIN 1 tablet EVERY 6 HOURS 1 tablet EVERY 6 HOURS (route: oral) Med Classific ation: Analgesic , Anti-infl ammatory or Antipyret ic Trexall 10 mg tablet 2022-02 00:00: 00 Yes [id number] ARTHRITIS 1 tablet WEEKLY 1 tablet WEEKLY [...] PHYSICIANS 02/22. RN TO OBSERVE AND ASSESS, SYSTEM ANALYST TO OBSERVE FOR RISK FOR FALLS AND [...] PHYSICIANS 02/22. RN TO OBSERVE AND ASSESS, SYSTEM ANALYST TO OBSERVE FOR RISK FOR FALLS AND [...] End Date/Time Encounter Type Admission Type Attending [facility] Care Department Encounter ID Discharge Date Discharge Status Discharge Condition Discharge Reason Percent Goals Met 2022-12-06 00:00:00 2023-01-30 00:00:00 Outpatient NEW ADMISSION TEN RODRIGUEZ [facility] [id number] 2023-01-30 00:00:00 DISCHARGE TO HOME OR SELF CARE INDEPENDEN T IN THE COMMUNITY HH OR PAL- GOALS MET 80.56
[2024-02-25 11:02] VITALS: BP 128/64; PULSE 95; RESP 20; TEMP 36.6; O2SAT 98; BMI 24.3
--- NOTE | 2024-02-25 11:30 | ECG_ITS ---
Test Reason : SOB Blood Pressure : / mmHG Vent. Rate : 089 BPM Atrial Rate : 000 BPM P-R Int : 000 ms QRS Dur : 076 ms QT Int : 348 ms P-R-T Axes : 000 063 032 degrees QTc Int : 423 ms Atrial fibrillation Abnormal ECG When compared with ECG of 09-NOV-2022 14:57, No significant change was found Referred By: Alton Zhu Electronically Signed By:ARCENIO GUTIERREZ MD
[2024-02-25 11:31] LABS: MANUAL DIFF FLAG NO
[2024-02-25 11:33] LABS: Basophils Absolute Auto 0.1 X10*3/uL (0.0-0.2); Basophils Percent Auto 1.6 % (0-2); Eosinophils Absolute Auto 0.2 X10*3/uL (0.0-0.4); Eosinophils Percent Auto 4.1 % (0-4); Hematocrit 33.9 % (42.0-52.0); Hemoglobin 11.4 g/dl (14.0-18.0); Imm Gran Abs Auto 0.04 X10*3/uL (0.00-0.03); Imm Gran Pct Auto 0.8 % (0.0-0.4); Lymphocytes Absolute Auto 0.5 X10*3/uL (1.2-4.9); Mean Corpuscular HGB Conc 33.6 g/dl (31.0-36.0); Mean Corpuscular Hemoglobin 31.4 pg (27.0-33.0); Mean Corpuscular Volume 93.4 fL (80.0-98.0); Mean Platelet Volume 10.5 fL (9.4-12.4); Monocytes Absolute Auto 0.5 X10*3/uL (0.1-1.2); Monocytes Percent Auto 9.8 % (2-11); Neutrophils Absolute Auto 3.8 x10*3/uL (2.0-8.3); Neutrophils Percent Auto 74.7 % (45-73); Platelet Count 271 X10*3/uL (160-400); Red Blood Count 3.63 X10*6/uL (4.60-5.80); Red Cell Distribution Width 14.7 % (11.0-16.0); White Blood Count 5.1 X10*3/uL (4.8-10.8)
[2024-02-25 11:48] LABS: Alanine Aminotransferase 21 U/L (0-40); Albumin Level 3.1 g/dL (3.5-5.0); Alkaline Phosphatase 75 U/L (39-117); Anion Gap 12 (12-20); Aspartate Amino Transferase 62 U/L (5-37); Bilirubin Total 0.9 mg/dL (0.0-1.0); Blood Urea Nitrogen 15 mg/dL (9-16); Calcium 9.2 mg/dL (8.4-10.2); Carbon Dioxide 25 mmol/L (22-29); Chloride 101 mmol/L (96-108); Estimated Glomerular Filt Rate 58; Glucose Random 110 mg/dL (60-115); Potassium 3.7 mmol/L (3.3-5.1); Sodium 134 mmol/L (135-145); Total Protein 6.5 g/dL (6.5-8.0)
[2024-02-25 11:53] LABS: B Type Natriuretic Peptide 381 pg/mL (<100); Troponin-I High Sensitivity 16.6 ng/L (<3.5-35.0)
[2024-02-25 12:23] LABS: Influenza A PCR NEGATIVE (Negative); Influenza B PCR NEGATIVE (Negative); Resp Syncy Virus RNA Qual PCR NEGATIVE (Negative); SARS COV2 PCR INHOUSE NEGATIVE (Negative)
--- NOTE | 2024-02-25 12:34 | ED_ITS ---
HPI - SOB/Dyspnea General Chief Complaint: Dyspnea Stated Complaint: SOB Sent By Dr Sahu Time Seen by Provider: 02/25/24 12:16 Source: patient, family and old records reviewed Mode of arrival: ambulatory Limitations: no limitations History of Present Illness ED Provider: STEFANI PLATT Narrative: 88 yo male with PMH of BPH, GERD, afib on eliquis, RA on methotrexate, anemia, R femoral fracture s/p surgery who is at home and patient and daughter notice a decline over past month including 22lb weight loss, anorexia, fatigue and CHOWDHURY where he is now using his wifes walker and cane in the house. No cough or fevers. This has been progressing x 1 month. No abdominal pain just states he is tired. Daughter notes he sleeps during the day as well. They tried to see Luis Alberto but no work up other than labs done. He denies black or bloody stools with BMs daughter is worried about him being alone at home MD elicited complaint: shortness of breath Onset (ago): month(s) (1) Context: occurred during exertion Timing: progressively worsening Severity: moderate Exacerbating factors: exertion Relieving factors: rest Associated symptoms: other (weight loss, fatigue, CHOWDHURY) Treatment prior to arrival: none Related Data Home Medications ?Medication ?Instructions ?Recorded ?Confirmed famotidine 20 mg tablet 20 mg PO BEDTIME 11/05/20 01/14/24 methotrexate sodium 2.5 mg tablet 10 mg PO SA 11/05/20 01/14/24 melatonin 5 mg tablet 5 mg PO BEDTIME PRN Insomnia 01/10/22 01/14/24 folic acid 1 mg tablet 1 mg PO DAILY 08/16/22 01/14/24 multivitamin 1 tab PO DAILY 11/07/22 01/14/24 leflunomide 20 mg tablet 20 mg PO DAILY 05/04/23 01/14/24 Previous Rx's ?Medication ?Instructions ?Recorded apixaban 2.5 mg tablet (Eliquis) 2.5 mg PO BID #180 tabs 04/18/23 finasteride 5 mg tablet 5 mg PO DAILY 90 days #90 tabs 10/12/23 Allergies Allergy/AdvReac Type Severity Reaction Status Date / Time No Known Allergies Allergy Verified 02/25/24 11:04 Review of Systems 2 Review of Systems: Constitutional : No Fever, No Chills, pos fatigue and pos weight loss ENT/Mouth : No sore throat, No Rhinorrhea, No Swallowing Difficulty Eyes: No Eye Pain, No Swelling, No Redness Cardiovascular : No Chest Pain, positive SOB, No Orthopnea, positive Edema Respiratory : No Cough, No Sputum, No Wheezing, positive dyspnea Gastrointestinal : No Nausea, No Vomiting, No Diarrhea, No abdominal Pain, No Hematochezia, No Melena Genitourinary : No Dysuria, No Urinary Frequency, No Hematuria Musculoskeletal : No joint pain, No Myalgias Skin : No Skin Lesions, No rash Neuro : No Weakness, No Numbness, No Dizziness, No Headache Psych : No Anxiety/Panic, No Depression All other systems reviewed and are negative [facility] Past Medical History Medical History Persistent atrial fibrillation Rheumatoid arthritis Atrial fibrillation Nocturia GERD (gastroesophageal reflux disease) Erectile dysfunction 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 Mother No problems noted. Social History Social History Household Members: None Housing: House Are you a primary director of health care marketing to a significant other at home: No Do you presently have visiting nurse or other home services: No Alcohol intake: never Patient Tobacco Use Status: Former Tobacco user Tobacco use type: Cigarette Advance Directives: No Advance Directives Information Provided: Yes service: Yes Current occupational status: retired Current occupation: rt handed Physical Exam 2 Vital Signs: Vital Signs: Last Vital Signs Temp 98 F 02/25/24 11:02 Pulse 92 02/25/24 14:56 Resp 12 02/25/24 14:56 BP 125/56 L 02/25/24 14:56 Pulse Ox 98 02/25/24 14:56 O2 Del Method Room Air 02/25/24 14:56 BMI result Body Mass Index 24.3 Appearance: Alert. Oriented X3. No acute distress. Eyes: Pupils equal, round and reactive to light. ENT: Pharynx normal. Neck: Normal inspection. Neck supple. CVS: irregular heart rate and rhythm. Pulses normal. Respiratory: No respiratory distress. Breath sounds normal. Abdomen: Soft and non-tender. Skin: Skin warm and dry. Normal skin color. Normal skin turgor. Extremities: 1+ pitting lower extremity edema. No calf ttp Neuro: Oriented X 3. No motor deficit. No sensory deficit. Medications Administered Discontinued Medications Generic Name Dose Route Start Last Admin Trade Name Desiree PRN Reason Stop Dose Admin Iohexol 100 ml 02/25/24 14:38 02/25/24 14:38 Iohexol 350 Mg/Ml 100 Ml Infus..Btl IV 02/25/24 14:39 85 ml ONCE ONE Administration Medical Decision Making Medical Decision Making [facility] Narrative: 88 yo male with PMH of BPH, GERD, afib on eliquis, RA on methotrexate, anemia, R femoral fracture s/p surgery here with c/o CHOWDHURY, weight loss, FTT x 1 month. No GIB symptoms reported just not eating and now has to use a walker and cane to get around his house. No fevers, no GIB, no cough. Just feels very weak. At this time given symptoms would obtain EKG, CXR, CT abdomen for mass, busch labs. Possible mass, CHF, FTT, malignancy Differential Diagnosis Differential Diagnoses: The differential diagnosis associated with the presentation includes mass, chf, FTT Admission/Observation Consideration of admission/observation: Escalation of care including admission/observation considered no acute needs for admission has mild leg edema but admits it is the best it has been and CXR is normal per family request have PT/CM see him and assess for possible STR physician observation started at 440pm Consult Healthcare Provider Management of the patient was discussed with: Grinding Mill Operator Lab Data [facility] Lab Attestation statement: I reviewed the patient's lab results. 02/25/24 11:16 02/25/24 11:16 Labs: Lab Results 02/25/24 02/25/24 Range/Units 11:16 14:57 WBC 5.1 (4.8-10.8) X10*3/uL RBC 3.63 L (4.60-5.80) X10*6/uL Hgb 11.4 L (14.0-18.0) g/dl Hct 33.9 L (42.0-52.0) % MCV 93.4 (80.0-98.0) fL MCH 31.4 (27.0-33.0) pg MCHC 33.6 (31.0-36.0) g/dl RDW 14.7 (11.0-16.0) % Plt Count 271 D (160-400) X10*3/uL MPV 10.5 (9.4-12.4) fL Immature Gran % (Auto) 0.8 H (0.0-0.4) % Neut % (Auto) 74.7 H (45-73) % Lymph % (Auto) 9.0 L (20-40) % [place] % (Auto) 9.8 (2-11) % Eos % (Auto) 4.1 H (0-4) % Baso % (Auto) 1.6 (0-2) % Lymph # (Auto) 0.5 L (1.2-4.9) X10*3/uL [place] # (Auto) 0.5 (0.1-1.2) X10*3/uL Eos # (Auto) 0.2 (0.0-0.4) X10*3/uL Baso # (Auto) 0.1 (0.0-0.2) X10*3/uL Abs Immat Gran (auto) 0.04 H (0.00-0.03) X10*3/uL Absolute Neuts (auto) 3.8 (2.0-8.3) x10*3/uL Absolute Nucleated RBC 0.000 (0.0-0.012) X10*3/uL Nucleated RBC % (auto) 0.0 (0.0-0.2) /100WBC Sodium 134 L (135-145) mmol/L Potassium 3.7 (3.3-5.1) mmol/L Chloride 101 (96-108) mmol/L Carbon Dioxide 25 (22-29) mmol/L Anion Gap 12 (12-20) BUN 15 (9-16) mg/dL Creatinine 1.19 (0.5-1.4) mg/dL Estim Creat Clear Calc 38.0 Estimated GFR 58 Random Glucose 110 (60-115) mg/dL Calcium 9.2 (8.4-10.2) mg/dL Total Bilirubin 0.9 (0.0-1.0) mg/dL AST 62 H (5-37) U/L ALT 21 (0-40) U/L Alkaline Phosphatase 75 (39-117) U/L Troponin I High Sens 16.6 (<3.5-35.0) ng/L B-Natriuretic Peptide 381 H (<100) pg/mL Total Protein 6.5 (6.5-8.0) g/dL Albumin 3.1 L (3.5-5.0) g/dL Urine Color Dark Yellow Urine Appearance Cloudy Urine pH 5.5 (5.0-9.0) Ur Specific [place] 1.025 (1.005-1.025) Urine Protein 100 (2+) H (Neg-Trace) mg/dL Urine Glucose (UA) Negative (Negative) mg/dL Urine Ketones Trace (Negative) mg/dL Urine Blood Negative (Negative) Urine Nitrite Negative (Negative) Ur Leukocyte Esterase Negative (Negative) Urine RBC 0-2 (0-2) /HPF Urine WBC 0-5 (0-5) /HPF Ur Squamous Epith Cells 0-2 (0-2) /HPF Calcium Oxalate Crystal Present Urine Bacteria None Seen (None Seen) Hyaline Casts 3-5 (0-2) /LPF Influenza Type A (PCR) NEGATIVE (Negative) Influenza Type B (PCR) NEGATIVE (Negative) RSV RNA Qual (PCR) NEGATIVE (Negative) SARS-CoV-2 RNA (RT-PCR) NEGATIVE (Negative) Independent Interpretation I performed an independent interpretation of an: EKG, Plain X-Ray (no pneumonia) and CT Scan (no acute findings) Interpretation: Rate: 89 Rhythm: afib [place]: normal Normal QRS complex. ST T wave : no MANDY, flat t waves aVL qTC: 423 prior studies: no sig change The study has been interpreted contemporaneously by me. . Radiology Impression Discussion of test interpretation with radiology: I have reviewed the radiologist's reading. Independent Historian Clinical information obtained from an independent historian. History obtained from or confirmed by: Other (daughter) External Record Review External record reviewed: Inpatient record Discharge Plan Discharge Clinical Impression: Adult failure to thrive, CHOWDHURY (dyspnea on exertion) Patient Disposition: Still a Patient Prescriptions: No Action Eliquis 2.5 mg tablet 2.5 mg PO BID Qty: 180 3RF finasteride 5 mg tablet 5 mg PO DAILY 90 Days Qty: 90 3RF melatonin 5 mg Tablet 5 mg PO BEDTIME PRN (Reason: Insomnia) multivitamin Tablet 1 tab PO DAILY famotidine 20 mg tablet 20 mg PO BEDTIME methotrexate sodium 2.5 mg tablet 10 mg PO SA folic acid 1 mg tablet 1 mg PO DAILY leflunomide 20 mg tablet 20 mg PO DAILY Print Language: Yoruba
--- OUTSIDE RECORDS SUMMARY | 2024-02-25 12:55 | XMS_ITS | Clinical Summary ---
Author Organization Unknown Care Team Providers Care Aircraft Assembler Name Role Phone REBEKAH PATEL, NUZHAT Unavailable Unavailable ERVIN RN, LINDSAY Unavailable Unavailable MICHAEL PT, TEN Unavailable Unavailable SPAFRANCIS OT, CHARI Unavailable Unavailable DARCI CENTER MAKER HAND, YANET Unavailable Unavailab le Payers Payer Name Policy Type Policy Number Effective Date Expira tion Date MEDICARE.NGS.PDGM [id number] Problems Condition Name Condition Details Condition Category [...] Multi-Vitam in tablet 2022-02 00:00: 00 Yes [id number] SUPPLEMENT 1 tablet DAILY 1 tablet DAILY (route: oral) Med Classific ation: Electroly te Balance-N utritiona l Products Eliquis 2.5 mg tablet 2022-02 00:00: 00 Yes [id number] AFIB 1 tablet 2 TIMES DAILY 1 tablet 2 TIMES DAILY (route: oral) Med Classific ation: Hematolog ical Agents famotidine 20 mg tablet 2022-02 00:00: 00 Yes [id number] GERD 1 tablet 2 TIMES DAILY 1 tablet 2 TIMES DAILY (route: oral) Med Classific ation: Gastroint estinal Therapy Agents finasteride 5 mg tablet 2022-02 00:00: 00 Yes [id number] BPH 1 tablet DAILY 1 tablet DAILY (route: oral) Med Classific ation: Genitouri nary Therapy folic acid 1 mg tablet 2022-02 00:00: 00 Yes [id number] SUPPLEMENT 1 tablet DAILY 1 tablet DAILY (route: oral) Med Classific ation: Electroly te Balance-N utritiona l Products melatonin 5 mg capsule 2022-02 00:00: 00 Yes [id number] SLEEP AIDE 1 capsule BEDTIME 1 capsule BEDTIME (route: oral) Med Classific ation: Central Nervous System Agents tramadol 50 mg tablet 2022-02 00:00: 00 Yes [id number] PAIN 1 tablet EVERY 6 HOURS 1 tablet EVERY 6 HOURS (route: oral) Med Classific ation: Analgesic , Anti-infl ammatory or Antipyret ic Trexall 10 mg tablet 2022-02 00:00: 00 Yes [id number] ARTHRITIS 1 tablet WEEKLY 1 tablet WEEKLY [...] PHYSICIANS 02/22. RN TO OBSERVE AND ASSESS, GLAZIER APPRENTICE TO OBSERVE FOR RISK FOR FALLS AND [...] PHYSICIANS 02/22. RN TO OBSERVE AND ASSESS, GLAZIER APPRENTICE TO OBSERVE FOR RISK FOR FALLS AND [...] End Date/Time Encounter Type Admission Type Attending [facility] Care Department Encounter ID Discharge Date Discharge Status Discharge Condition Discharge Reason Percent Goals Met 2022-12-06 00:00:00 2023-01-30 00:00:00 Outpatient NEW ADMISSION TEN RODRIGUEZ [facility] [id number] 2023-01-30 00:00:00 DISCHARGE TO HOME OR SELF CARE INDEPENDEN T IN THE COMMUNITY HH OR PAL- GOALS MET 80.56
--- OUTSIDE RECORDS SUMMARY | 2024-02-25 12:55 | XMS_ITS | Clinical Summary ---
Author Organization Unknown Care Team Providers Care Pump And Still Operator Name Role Phone REBEKAH PATEL, NUZHAT Unavailable Unavailable ERVIN RN, LINDSAY Unavailable Unavailable MICHAEL PT, TEN Unavailable Unavailable SPAFRANCIS OT, CHARI Unavailable Unavailable [facility] SUPPORT SERVICES SPECIALIST, YANET Unavailable Unavailab le Payers Payer Name Policy Type Policy Number Effective Date Expira tion Date MEDICARE.NGS.PDGM [id number] Problems Condition Name Condition Details Condition Category [...] Multi-Vitam in tablet 2022-02 00:00: 00 Yes [id number] SUPPLEMENT 1 tablet DAILY 1 tablet DAILY (route: oral) Med Classific ation: Electroly te Balance-N utritiona l Products Eliquis 2.5 mg tablet 2022-02 00:00: 00 Yes [id number] AFIB 1 tablet 2 TIMES DAILY 1 tablet 2 TIMES DAILY (route: oral) Med Classific ation: Hematolog ical Agents famotidine 20 mg tablet 2022-02 00:00: 00 Yes [id number] GERD 1 tablet 2 TIMES DAILY 1 tablet 2 TIMES DAILY (route: oral) Med Classific ation: Gastroint estinal Therapy Agents finasteride 5 mg tablet 2022-02 00:00: 00 Yes [id number] BPH 1 tablet DAILY 1 tablet DAILY (route: oral) Med Classific ation: Genitouri nary Therapy folic acid 1 mg tablet 2022-02 00:00: 00 Yes [id number] SUPPLEMENT 1 tablet DAILY 1 tablet DAILY (route: oral) Med Classific ation: Electroly te Balance-N utritiona l Products melatonin 5 mg capsule 2022-02 00:00: 00 Yes [id number] SLEEP AIDE 1 capsule BEDTIME 1 capsule BEDTIME (route: oral) Med Classific ation: Central Nervous System Agents tramadol 50 mg tablet 2022-02 00:00: 00 Yes [id number] PAIN 1 tablet EVERY 6 HOURS 1 tablet EVERY 6 HOURS (route: oral) Med Classific ation: Analgesic , Anti-infl ammatory or Antipyret ic Trexall 10 mg tablet 2022-02 00:00: 00 Yes [id number] ARTHRITIS 1 tablet WEEKLY 1 tablet WEEKLY [...] PHYSICIANS 02/22. RN TO OBSERVE AND ASSESS, WINDOWS SERVER ADMINISTRATOR TO OBSERVE FOR RISK FOR FALLS AND [...] PHYSICIANS 02/22. RN TO OBSERVE AND ASSESS, WINDOWS SERVER ADMINISTRATOR TO OBSERVE FOR RISK FOR FALLS AND [...] End Date/Time Encounter Type Admission Type Attending [facility] Care Department Encounter ID Discharge Date Discharge Status Discharge Condition Discharge Reason Percent Goals Met 2022-12-06 00:00:00 2023-01-30 00:00:00 Outpatient NEW ADMISSION TEN RODRIGUEZ [facility] [id number] 2023-01-30 00:00:00 DISCHARGE TO HOME OR SELF CARE INDEPENDEN T IN THE COMMUNITY HH OR PAL- GOALS MET 80.56
[2024-02-25] MEDS: iohexoL 350 MG/ML 100 ML INFUS..BTL IV (14:38)
[2024-02-25 14:56] VITALS: BP 125/56; PULSE 92; RESP 12; O2SAT 98
[2024-02-25 15:06] LABS: Appearance Urine Cloudy; Color Urine Dark Yellow; Glucose Urine UA Negative (Negative); Leukocyte Esterase Urine Negative (Negative); Nitrite Urine Negative (Negative); PH 5.5 (5.0-9.0); Specific Gravity - Urine 1.025 (1.005-1.025); UMIC TRIGGER UACC YES; Urine Blood Negative (Negative); Urine Ketones Trace mg/dL (Negative); Urine Protein 100 (2+) mg/dL (Neg-Trace)
[2024-02-25 15:13] LABS: Bacteria Urine None Seen (None Seen); Calcium Oxalate Crystals Urine Present; RBC Urine 0-2 /HPF (0-2); Squamous Epithelial Cell Urine 0-2 /HPF (0-2); WBC Urine 0-5 /HPF (0-5)
[2024-02-25 17:03] VITALS: BP 124/77; PULSE 89; RESP 20; TEMP 36.6; O2SAT 96
--- NOTE | 2024-02-25 18:01 | PC.NURSE ---
patent and family has called this RN and other staff into room multiple times to ask about dinner tray for patient, family educated that patient has tray ordered by MD and that it will come around 530-6. patient family educated each time staff comes into room about dinner tray. patient family just called this RN into room to question about dinner tray, this RN again educated patient and family that dinner tray will be here soon and that patient will be given one. patient has been offered multiple times a snack from the patient refrigerator and patient has denied whats offered.
[2024-02-25 18:02] VITALS: BP 138/78; PULSE 90; RESP 20; TEMP 36.5; O2SAT 98
--- NOTE | 2024-02-25 21:23 | PHA.MEDREC ---
Addendum entered by Evleia Morgan [facility] 02/25/24 21:45: reviewed Original Note: Pharmacy Consult ? Medication Reconciliation Pharmacy has completed the medication reconciliation. Spoke to patient to confirm med list. Patient states was able to tell me everything he takes. Patient states he no longer takes Multivitamin. patient confirmed he takes Methotrexate 10 mg (4 X 2.5 mg) every Sunday, last dose 02/23/24.Patient seemed a little confused about taking Eliquis 2.5 mg last filled 07/11/23 for 90 days. He said I think so but not sure. Called patients daughter on file to confirm Eliquis. Daughter sates yes patient has to have this medication.
[2024-02-25 21:46] VITALS: BP 112/57; PULSE 87; RESP 16; TEMP 36.9; O2SAT 96
--- NOTE | 2024-02-25 21:58 | MHC.EDTECH ---
This pct assumed care of Patient at 1920 ,Patient had ham sandwich and blake barbie for dinner ,Patient vitals taken and Patient belongings list done ,Patient in bed resting quietly ,Plan of care continue .
--- NOTE | 2024-02-26 00:31 | MHC.EDTECH ---
0000 rounding done ,Pt up walking to bathroom ,void and back in bed .
--- NOTE | 2024-02-26 01:44 | PC.NURSE ---
this rn placed elopement band on pt @ this time with assistance from CC due to concerns brought forward by sheltered workshop worker of pt getting up on own and walking towards exit. pt calm and cooperative and redirectable to bed pt agreeable to band
[2024-02-26 06:45] VITALS: BP 115/64; PULSE 100; RESP 16; TEMP 36.6; O2SAT 99
--- NOTE | 2024-02-26 06:46 | MHC.EDTECH ---
pt changed himself over to his clothes from home. refuses to change back into our skylar tops. rn aware
[2024-02-26] MEDS: Famotidine 20 MG TABLET PO (09:50)
[2024-02-26] MEDS: Apixaban 2.5 MG TABLET PO (09:50)
[2024-02-26] MEDS: Folic Acid 1 MG TABLET PO (09:50)
[2024-02-26] MEDS: Finasteride 5 MG TABLET PO (09:50)
[2024-02-26 11:11] VITALS: BP 110/87; PULSE 100; RESP 18; TEMP 36.8; O2SAT 98
--- NOTE | 2024-02-26 11:14 | MHC.CM.PN ---
This CM met with pt, he lives alone, agreeable to VNA services being set up. [facility] accepted pt, pts daughter will transport him home today.
== END 2024-02-26 11:28 | disposition home or self-care (01) ==
PROVIDERS: Emergency Medicine; Emergency Provider Emergency Medicine; PCP Internal Medicine
DX: R62.7 Adult failure to thrive (principal); R06.00 Dyspnea, unspecified; R06.02 Shortness of breath; M06.9 Rheumatoid arthritis, unspecified; I48.91 Unspecified atrial fibrillation; R53.83 Other fatigue; R63.4 Abnormal weight loss; Z68.24 Body mass index [BMI] 24.0-24.9, adult; Z03.818 Encounter for observation for suspected exposure to other biological agents ruled out; Z79.01 Long term (current) use of anticoagulants
CPT/HCPCS: 0241U; 36415; 71046; 74177; 80053; 81001; 83880; 84484; 85025; 93005; 97162; 99285; Q9967

== ENCOUNTER → 2024-02-25 11:22 | Outpatient (BNV) | payer MEDICARE, OTHER, SELFPAY | PROVIDERS: PCP Internal Medicine; Visit Provider Radiology Diagnostic Radiology | DX: R63.4 Abnormal weight loss (principal); R53.83 Other fatigue; R06.02 Shortness of breath | CPT/HCPCS: 71046; 74177 ==

== ENCOUNTER → 2024-02-25 11:30 | Outpatient (BNV) | payer MEDICARE, OTHER, SELFPAY | PROVIDERS: Emergency Provider Emergency Medicine; PCP Internal Medicine; Visit Provider Internal Medicine Cardiovascular Disease | DX: R94.31 Abnormal electrocardiogram [ECG] [EKG] (principal) | CPT/HCPCS: 93010 ==

== ENCOUNTER 2024-06-18 13:42 | Outpatient (AMB) | payer MEDICARE, OTHER, SELFPAY ==
--- NOTE | 2024-06-18 13:54 | MHC.OFFVIS ---
Vital Signs 06/18/24 13:57 Height 5 ft 9 in Weight 154 lb 5.177 oz BMI 22.8 BP 120/60 Blood Pressure Location Lt brachial Position Sitting Pulse 95 Pulse Source Monitor Intake Visit Reasons: Persistant Afib f/u Allergies No Known Allergies Allergy (Verified 02/25/24 11:04) Medication List - Last Reconciled 06/18/24 by Elia Nelson MD apixaban (Eliquis) 2.5 mg PO BID famotidine 20 mg PO TID finasteride 5 mg PO DAILY 90 days folic acid 1 mg PO DAILY furosemide 20 mg PO DAILY PRN leflunomide 20 mg PO DAILY melatonin 5 mg PO BEDTIME PRN methotrexate sodium 10 mg PO SA HPI Comments Details: Matthew is here for follow up regarding atrial fibrillation. Routine checkup and EKG had revealed atrial fibrillation. Since last seen, he states he feels good. No new concerns. Please golf intermittently. 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 Mother No problems noted. Social History Household Members: None Housing: House Are you a primary child care group leader to a significant other at home: No Do you presently have visiting nurse or other home services: No Alcohol intake: never Patient Tobacco Use Status: Former Tobacco user Tobacco use type: Cigarette service: Yes Current occupational status: retired Current occupation: rt handed Review of Systems Const Denies weakness ENT Denies dizziness Card Denies chest pain, Denies chest pain with activity, Denies syncope, Denies rapid heart rate, Denies pedal edema, Denies edema, Denies leg edema, Denies lightheadedness, Denies palpitations, Denies dyspnea, Denies dyspnea on exertion and Denies orthopnea Resp Denies cough, Denies dyspnea and Denies dyspnea on exertion GI Denies hematochezia and Denies change in stool character Musc Denies abnormal gait, Denies muscle cramps, Denies muscle weakness, Denies numbness, Denies radiating pain into limb and Denies tingling Neuro Denies abnormal gait, Denies dizziness, Denies syncope, Denies numbness, Denies tingling and Denies weakness Endo Denies palpitations Physical Exam Vital Signs: Last Vital Signs Pulse 95 06/18/24 13:57 BP 120/60 06/18/24 13:57 BMI result Body Mass Index 22.8 Const General: comfortable and no acute distress Orientation/consciousness: patient oriented x3 HEENT Other: Unremarkable Head: Yes normal to inspection Neck Neck: Yes normal visual inspection Chest Chest palpation & inspection: normal inspection of the chest Resp Auscultation: clear to auscultation bilaterally Cardio Palpation: normal PMI Heart sounds: S1 normal heart sound present, S2 normal heart sound present, no gallops, no murmurs and no rubs GI Palpation (GI): Soft to palpation Back/Spine/Pelvis Other: unremarkable Skin General skin exam: no rashes or lesions noted Neuro General: patient oriented x3 Extrem Other: Trace edema bilateral lower extremities. General: Yes normal to inspection Psych Mental Status: mental status grossly normal Office Procedures EKG Details: EKG with underlying atrial fibrillation at a rate of 95/Min. 40031-Dqpcnskkorljwdkao, Complete Assessment & Plan Assessment & Plan (1) Persistent atrial fibrillation: Code(s): I48.19 - Other persistent atrial fibrillation Category: Medical (2) Leg swelling: Code(s): M79.89 - Other specified soft tissue disorders Category: Medical Plan Holter in the past with atrial fibrillation/adequate rate control. In the echocardiogram, preserved LVEF, 60-65%; moderately dilated left atrium and mild aortic/mitral calcifications. Rate controlled without any medications and likely has some intrinsic conduction system disease. He remains on Eliquis and advised to continue. He has asked several times about discontinuing the medication but advised against it. With regard to leg swelling, likely all dependent edema. No specific cardiac workup for that. Patient was informed and verbally consented to the use of an ambient scribe for clinic note documentation during this visit. Patient Instructions: - Continue taking Eliquis as prescribed. - Monitor for any new symptoms such as chest pain or palpitations. - Come back in six months for a follow-up visit. - Resume activities as tolerated but be mindful of discomfort. - Contact the healthcare provider if symptoms worsen. Coding Level of Care Code Est Pt Level 3 (57983) Diagnoses Persistent atrial fibrillation I48.19 Leg swelling M79.89 CPT Codes EKG - CPT: 89769-Sllgwptjzuclekoak, Complete ([id number])
[2024-06-18 13:57] VITALS: BP 120/60; PULSE 95; BMI 22.8
--- OUTSIDE RECORDS SUMMARY | 2024-06-18 16:21 | XMS_ITS | Patient Health Record ---
Author Organization [facility] Address [address] [place] [address] Care Team Providers Care Shearer Operator Name Role Phone Suman Sahu MD Primary Care Provider Sid Walton Jr Unavailable [phone] Allergies No Known Allergies Reason For Referral No Information Medications Medication SIG (Take, Route, Fr equency, Duration) Notes Start Date End Date Status Famotidine 20 MG TK 1 T PO BID Oral for 90 Active Eliquis 2.5 MG as directed Orally Active Immunizations Vaccine Route Administration Date Status Comme nts Flu vaccine no Preserv 3 and > Unknown 12/10/2013 Admin istered Flu vaccine no Preserv 3 and > Unknown 01/12/2015 Admin istered Influenza Unknown 10/27/2016 Administered Influenza Unknown 10/08/2019 Administered Influenza Unknown 12/29/2020 Administered Influenza Unknown 11/30/2021 Administered Problems Problem Type SNOMED Code ICD Code Onset Dates Problem Status W/U Status Risk Notes Problem 86806746 Hypertension (I10) Active confirmed Problem 223657632 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 Problem 98393282 Colon polyps (K63.5) Active confirmed Problem 914972714 Adenomatous poly p of colon, unspecified part of colon (D12.6) Active confirmed Problem 226301697 Rectal adenoma (D12.8) Active confirmed Plan Of Treatment Future Test Test Name Order Date COLONOSCOPY 02/07/2013 UPPER GI ENDOSCOPY 06/10/2014 COLONOSCOPY 06/10/2014 UPPER GI ENDOSCOPY 09/06/2017 COLONOSCOPY 09/06/2017 Insurance Providers Payer Name Payer Address Payer Phone Subscriber Number Group Number Insured Name Patient Relationship to Insured Coverage Start Date Coverage End Date MEDICARE OF [employer]LI TORRES [address] [place] [id number] GLENN WARE Self - patient is the insured [employer] [address] [place] [address] [id number] GLENN WARE Self - patient is the insured Medical (General) History Medical History History ICD Code elevated PSA Whitaker's esophagus, EGD 01/04/18 1 cm Whitaker's tissue and squamous papilloma. No intestinal metaplasia or dysplasia on biopsy, followup endoscopy optional based on age. 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 Rosenberg [facility], 2012 Atrial fibrillation Surgical History Surgery Date(Month/Year) hemorrhoidectomy appendectomy tonsillectomy Transanal polypectomy
--- OUTSIDE RECORDS SUMMARY | 2024-06-18 16:21 | XMS_ITS ---
Author Organization [facility] Care Team Providers Care Government Program Manager Name Role Phone Silvestre Dickerson Unavailable Unavailable Suman Sahu Unavailable Unavailable Allergies and adverse reactions Code CodeSystem Substance Reaction Severity StartDate Concern Status 7804 RXNORM oxyCODONE Unknown 11/15/2022 active Care Team Name Role Address Phone Organization Dates Suman Sahu PCP [address] [place] [address], [address], [place], [address], [facility] (Office): : [facility] 11/13/2022 - 12/04/2022 Silvestre Dickerson Attending Physician [address] [place] [address], [address], [place], [address], [facility] (Office): : [facility] 11/13/2022 - 12/04/2022 Goals Section Description Status Target Date I plan to discharge to: Spec beto- To community alone, To Community with Family, [facility], LTC Placement, Other- Undecided at current time. Pending outcome of therapy sessions, clinical medical stability progress reviewed weekly. Active 03/11/2023 The resident's advance direc tives are in effect and their wishes will be carried out through the next review. Active 4 Immunizations Immunization Status Vaccine Details Vaccine Code CodeSystem Date Notes Influenza completed Influenza, split virus, trivalent, injectable, contains preservative 141 CVX created date: 11/14/2022 administere d date: 10/24/2019 PPSV23 (Previous Pneumococcal Polysaccharide)Fl ccine completed pneumococcal polysaccharide vaccine, 23 valent 33 CVX created date: 11/14/2022 administere d date: 01/03/2013 Pfizer Covid-19 Booster (SARS-COV-2) vaccine completed SARS-COV-2 (COVID-19) vaccine, mRNA, spike protein, LNP, preservative free, 30 mcg/0.3mL dose 208 CVX created date: 11/14/2022 administere d date: 01/05/2021 Pfizer Covid-19 Booster (SARS-COV-2) vaccine completed SARS-COV-2 (COVID-19) vaccine, mRNA, spike protein, LNP, preservative free, 30 mcg/0.3mL dose 208 CVX created date: 11/14/2022 administere d date: 07/02/2020 Pfizer Covid-19 Booster (SARS-COV-2) vaccine completed SARS-COV-2 (COVID-19) vaccine, mRNA, spike protein, LNP, preservative free, 30 mcg/0.3mL dose 208 CVX created date: 11/14/2022 administere d date: 06/11/2020 Mental Status Section Date Assessment Total Score Description 12/04/2022 BIMS 15 cognitively int act CAM 0 No delirium ind icated PHQ-9 00 11/19/2022 BIMS 15 cognitively int act CAM 0 No delirium ind icated PHQ-9 10 moderate depres lore Problems Problem # Description Date of onset Resolved Date Code CodeSystem Concern Status 1 ENCOUNTER FOR OTHER ORTHOPEDIC AFTERCARE [address] active 2 BENIGN PROSTATIC HYPERPLASIA WITHOUT LOWER URINARY TRACT SYMPTOMS [address] active 3 CARCINOMA IN SITU OF PROSTATE [address] active 4 GASTRO-ESOPHAGEAL REFLUX DISEASE WITHOUT ESOPHAGITIS [address] active 5 UNSPECIFIED ATRIAL FIBRILLATION [address] active 6 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 [address] active 7 BENIGN NEOPLASM OF COLON, UNSPECIFIED [address] active 8 BENIGN NEOPLASM OF RECTUM [address] active 9 DIFFICULTY IN WALKIN G, NOT ELSEWHERE CLASSIFIED [address] active 10 DISPLACED INTERTROCHANTERIC FRACTURE OF RIGHT FEMUR, SUBSEQUENT ENCOUNTER FOR CLOSED FRACTURE WITH ROUTINE HEALING [address] active 11 ESSENTIAL (PRIMARY) HYPERTENSION [address] active 12 OTHER LACK OF COORDINATION [address] active 13 POLYP OF COLON [address] active 14 RHEUMATOID ARTHRITIS , UNSPECIFIED [address] active 15 UNSPECIFIED PROTEIN-CALORIE MALNUTRITION [address] active Reason for Referral No Reasons for Referral Entered Social History Social History Observation Description Start Date End Date Code Code System Current Smoking Status Tobacco smoking consumption unknown 684931497 SNOMED CT Sex Assigned At Male 1935 83342-8 [facility] Vital Signs Code Code System Vitals Name Values and Units Timing Information 97100-1 [facility] Pain Level Value=0.0 12/04/2022 9279-1 [facility] Respiratory Rate Value=18.0 Units=/m in 12/03/2022 8462-4 [facility] Blood Pressure-Diastolic Value=62 Un its=mmHg 12/03/2022 8480-6 [facility] Blood Pressure-Systolic Ynkou=975 Un its=mmHg 12/03/2022 8310-5 [facility] Body Temperature Value=98.2 Units=?? F 12/03/2022 8867-4 [facility] Heart rate Value=77.0 Units=/min 09/2022 86978-0 [facility] O2 % dC Oximetry Value=97.0 Units= % 12/03/2022 74026-6 [facility] Weight Wkzav=066.2 Units=Lbs 07/2022 8302-2 [facility] Height Value=70.0 Units=Inches 11/14/2022
== END 2024-06-18 14:20 | disposition home or self-care (01) ==
LOC: HO.HCS 13:43
PROVIDERS: PCP Internal Medicine; Visit Provider Internal Medicine
DX: I48.19 Other persistent atrial fibrillation (principal); M79.89 Other specified soft tissue disorders
CPT/HCPCS: 93010; 99213

== ENCOUNTER → 2024-06-18 13:42 | Outpatient (BNVA) | payer MEDICARE, OTHER, SELFPAY | PROVIDERS: PCP Internal Medicine; Visit Provider Internal Medicine | DX: I48.19 Other persistent atrial fibrillation (principal); M79.89 Other specified soft tissue disorders | CPT/HCPCS: 93005; 99212 ==

== ENCOUNTER 2024-06-25 09:20 | Outpatient (AMB) | payer MEDICARE, OTHER, SELFPAY ==
[2024-06-25 09:28] VITALS: BP 130/70; PULSE 85; TEMP 36.4; O2SAT 99; BMI 22.3
--- NOTE | 2024-06-25 09:28 | MHC.PC.OV ---
Vital Signs 06/25/24 09:28 Height 5 ft 9 in Weight 151 lb BMI 22.3 BP 130/70 Blood Pressure Location Lt brachial Position Sitting Pulse 85 Pulse Source Pulse Oximeter Temp 97.6 F Temp Source Axillary Pulse Oximetry (%) 99 Oxygen Delivery Method Room Air Intake Visit Reasons: Routine Benefit Specialist Required: No Accompanied by: Self / Same As Patient Allergies No Known Allergies Allergy (Verified 06/25/24 10:09) Medication List - Last Reconciled 06/25/24 by Kvein David MD apixaban (Eliquis) 2.5 mg PO BID famotidine 20 mg PO TID finasteride 5 mg PO DAILY 90 days folic acid 1 mg PO DAILY furosemide 20 mg PO DAILY PRN leflunomide 20 mg PO DAILY methotrexate sodium 10 mg PO SA Tobacco use date assessed: 06/25/24 Fall risk assessment: No Falls in past year Last assessed Fall Risk: 06/25/24 Dental Screening Dental Screen Date: 06/25/24 Did you have a dental visit in the last 12 months?: No Did you have a dental problem in the last 6 months where you did not have access to dental care?: No [facility] Medical History (Updated 06/25/24 @ 10:10 by Kevin David MD) Right inguinal hernia Persistent atrial fibrillation Rheumatoid arthritis Atrial fibrillation Nocturia GERD (gastroesophageal reflux disease) Erectile dysfunction 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 Mother No problems noted. Social History Household Members: None Housing: House Are you a primary grounds caretaker to a significant other at home: No Do you presently have visiting nurse or other home services: No Alcohol intake: never Patient Tobacco Use Status: Former Tobacco user Tobacco use type: Cigarette e-Cigarette/Vaping Use: Former Use service: Yes Current occupational status: retired Current occupation: rt handed Cognitive needs: Yes (cane) Hearing needs: No Vision needs: Yes (reading glasses) Questionnaire PHQ-9 Over the last 2 weeks, how often have you been bothered by any of the following problems? 1. Little interest or pleasure in doing things: not at all 2. Feeling down, depressed, or hopeless: not at all 3. Trouble falling or staying asleep, or sleeping too much: not at all 4. Feeling tired or having little energy: not at all 5. Poor appetite or overeating: not at all 6. Feeling bad about yourself - or that you are a failure or have let yourself or your family down: not at all 7. Trouble concentrating on things, such as reading the newspaper or watching television: not at all 8. Moving or speaking so slowly that other people could have noticed. Or the opposite - being so fidgety or restless that you have been moving around a lot more than usual: not at all 9. Thoughts that you would be better off or of hurting yourself in some way: not at all Total score: 0 Source: Developed by Drs. Morgan Méndez, Iris Dye, Cl Huynh and colleagues, with an educational doris from [employer]. Thrive Questionnaire Date Thrive assessed: 06/25/24 I am a: Patient Within the past 12 months, did the food you bought not last and you didn't have the money to get more?: Never true Within the past 12 months, did you worry whether your food would run out before you got money to buy more?: Never true Do you have trouble paying for medicines?: No Do you have trouble getting transportation to medical appointments?: No Do you have trouble paying your heating and electricity bill?: No Do you have trouble taking care of your child, family member or friend?: No Do you have trouble with day-to-day activities such as bathing, preparing meals, shopping, managing finances, etc.?: No Are you currently unemployed and looking for a job?: No Are you interested in more education?: No THRIVE Score: 0 AUDIT C Alcohol Use Questionnaire (AUDIT-C) 1. How often do you have a drink containing alcohol?: Never 3. How often do you have six or more drinks on one occasion?: Never Total Score: 0 FATMATA-7 AMB Questionnaire FATMATA-7 Date FATMATA - 7 assessed: 06/25/24 Feeling nervous, anxious, or on edge: 0 = Not at all Not being able to stop or control worryin = Not at all Worrying too much about different things: 0 = Not at all Trouble relaxin = Not at all Being so restless that it is hard to sit still: 0 = Not at all Becoming easily annoyed or irritable: 0 = Not at all Feeling afraid as if something awful might happen: 0 = Not at all Total FATMATA-7 score (0-4 normal; 5-9 mild; 10-14 moderate; 15-21 severe): 0 Source: Developed by Drs. Morgan Méndez, Iris Dye, Cl Huynh and colleagues, with an educational doris from [employer]. Physical exam (Primary Care) Vital Signs: Last Vital Signs Temp 97.6 F 06/25/24 09:28 Pulse 85 06/25/24 09:28 BP 130/70 06/25/24 09:28 Pulse Ox 99 06/25/24 09:28 Oxygen Delivery Method Room Air 06/25/24 09:28 BMI result Body Mass Index 22.3 Tobacco/Smoking Status: Tobacco use Status Tobacco use date assessed 06/25/24 06/25/24 09:41 Patient Tobacco Use Status Former Tobacco user 06/25/24 09:28 Tobacco use type Cigarette 06/25/24 09:28 e-Cigarette/Vaping Use Former Use 06/25/24 09:52 PHQ-9: PHQ-9 Score PHQ-9: Total score 0 06/25/24 09:52 Thrive Assessment: Date of Thrive Assessment Date Thrive assessed 06/25/24 06/25/24 09:41 Coding Level of Care Code New Pt Level 4 (71848) Complex EM visit Add On G2211 Diagnoses Right inguinal hernia K40.90 Assessment & Plan Assessment & Plan (1) Right inguinal hernia: Code(s): K40.90 - Unilateral inguinal hernia, without obstruction or gangrene, not specified as recurrent Category: Medical Plan: US of the groin to confirm the hernia. Surgical appt to be made. Advised to have his daughter take him to the visit Plan History of Present Illness The patient is an 84-year-old male presenting for a follow-up visit and medication management. The patient has a notable history of pulmonary embolism for which he continues on anticoagulant therapy. Atrial fibrillation developed during hospitalization related to respiratory treatments, leading to a continued prescription of antiarrhythmics. His prostate condition is managed with tamsulosin, and he uses medication for occasional dyspepsia. His medical regimen appears stable, and no prescription refills are immediately necessary. He remains in regular follow-up, with scheduled cardiology visits, corroborating the stability of his cardiovascular status. His management is overseen by Dr. Velásquez concerning cardiology needs. 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 - Resides with , both staying active and managing their household needs independently including groceries and cooking. - Engages in driving, with no difficulty reported, including nighttime driving. Review of Systems - Cardiovascular: Reports atrial fibrillation controlled with medication. - Respiratory: Denies issues following initial pulmonary embolism management. - Genitourinary: Reports benign prostate hyperplasia managed with medication, denies current issues. - Gastrointestinal: Reports occasional dyspepsia addressed with medication as needed. Physical Exam General: Cooperative and healthy appearing Nutritional Appearance: Well nourished Orientation/consciousness: Patient oriented x3 Limitations: No limitations Head: Normal to inspection General: Appearance normal, both eyes and all related structures Neck: Normal visual inspection Chest: Normal palpation of entire chest wall Respiratory: Patient has a history of blood clots on the lungs and was treated by a respiratory therapist, which led to episodes of atrial fibrillation (AFib). ormal respiratory effort Neurology: Patient oriented x3 Results Plan - Maintain current medication regimen including anticoagulants and antiarrhythmics. - Continue management of benign prostate hyperplasia with tamsulosin. - Use dyspepsia medications as needed per previous recommendations. - Adhere to scheduled cardiology follow-up for ongoing monitoring. Patient was informed and verbally consented to the use of an ambient scribe for clinic note documentation during this visit. Discussion Notes During this visit, the management strategy for the patient's atrial fibrillation, pulmonary embolism, and benign prostate hyperplasia was reviewed. I discussed the importance of continuing his current medication regimen, including the use of anticoagulants and the antiarrhythmic medication, considering his history of AFib episodes and pulmonary embolism. We reinforced the plan to use tamsulosin for prostate health and the treatment for occasional dyspepsia according to previous medical guidance. Future cardiology appointments with Dr. Velásquez were confirmed for ongoing cardiac health monitoring. Patient Instructions - Continue taking your medications as prescribed. - Contact the pharmacy and our office if medication refills are needed. - Attend your wedding day coordinator appointment as planned in January. - Follow previously provided guidelines for managing dyspepsia. - Monitor for any new symptoms or concerns and seek medical advice if needed.
== END 2024-06-25 10:14 | disposition home or self-care (01) ==
LOC: HO.HMCHD 09:20
PROVIDERS: PCP Internal Medicine; Visit Provider Internal Medicine
DX: K40.90 Unilateral inguinal hernia, without obstruction or gangrene, not specified as recurrent (principal)

== ENCOUNTER → 2024-06-25 09:20 | Outpatient (BNVA) | payer MEDICARE, OTHER, SELFPAY | PROVIDERS: PCP Internal Medicine; Visit Provider Internal Medicine | DX: K40.90 Unilateral inguinal hernia, without obstruction or gangrene, not specified as recurrent (principal) | CPT/HCPCS: 99202 ==

== ENCOUNTER 2024-07-04 12:17 | Emergency (ER) | payer MEDICARE, OTHER, SELFPAY ==
--- NOTE | 2024-07-04 12:19 | ED_ITS ---
HPI - Abdominal Pain General Chief Complaint: General Medical Stated Complaint: Hernia- Abd Pain, R Leg Pain Time Seen by Provider: 07/04/24 12:49 Source: patient Mode of arrival: ambulatory Limitations: no limitations History of Present Illness ED Provider: Dr. Justyn Cody HPI narrative: 88-year-old male with a history of right inguinal hernia, atrial fibrillation, rheumatoid arthritis, GERD, erectile dysfunction, prostate cancer, who presents emergency department for evaluation of right inguinal hernia pain and swelling. The patient states that he has had pain in his right groin area for proximally 1 month. He states that over the last 1-2 days the pain is gotten worse and today he noted increased swelling and severe pain in the right inguinal area. States that the pain is constant, sharp and 8/10. The pain does radiate down in his right leg. Patient states he had several loose bowel movements this morning. He denied any dark, black stools or bloody stools. He has had no difficulty urinating or passing gas. He denied nausea, vomiting. He states that he has had a decreased appetite but he has been able to eat and drink without any difficulty. Related Data Home Medications ?Medication ?Instructions ?Recorded ?Confirmed methotrexate sodium 2.5 mg tablet 10 mg PO SA 11/05/20 06/18/24 folic acid 1 mg tablet 1 mg PO DAILY 08/16/22 06/18/24 leflunomide 20 mg tablet 20 mg PO DAILY 05/04/23 06/18/24 furosemide 20 mg tablet 20 mg PO DAILY PRN Edema 02/25/24 06/18/24 Previous Rx's ?Medication ?Instructions ?Recorded finasteride 5 mg tablet 5 mg PO DAILY 90 days #90 tabs 10/12/23 apixaban 2.5 mg tablet (Eliquis) 2.5 mg PO BID #180 tabs 05/15/24 famotidine 20 mg tablet 20 mg PO TID #90 tabs 06/20/24 Allergies Allergy/AdvReac Type Severity Reaction Status Date / Time No Known Allergies Allergy Verified 07/04/24 12:34 Review of Systems Review of Systems Yes all other systems are reviewed and are negative [facility] Past Medical History Medical History (Updated 07/04/24 @ 14:06 by Justyn Cody MD) Right inguinal hernia Persistent atrial fibrillation Rheumatoid arthritis Atrial fibrillation Nocturia GERD (gastroesophageal reflux disease) Erectile dysfunction 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 Mother No problems noted. Social History Social History Household Members: None Housing: House Are you a primary child day care center worker to a significant other at home: No Do you presently have visiting nurse or other home services: No Alcohol intake: never Patient Tobacco Use Status: Former Tobacco user Tobacco use type: Cigarette Smoked in Last 30 Days: No e-Cigarette/Vaping Use: Former Use Use of substances other than those prescribed or required for medical reasons: No Advance Directives: Yes Advance Directives on File: Yes Advance Directives Date on File: 11/14/22 service: Yes Current occupational status: retired Current occupation: rt handed Cognitive needs: Yes (cane) Hearing needs: No Vision needs: Yes (reading glasses) Physical Exam ED Vital Signs: Vital Signs - 24 hr 07/04/24 12:33 07/04/24 12:44 07/04/24 14:23 Temperature 97.8 F 97.9 F 97.9 F Pulse Rate 90 88 88 Respiratory Rate 18 18 18 Blood Pressure 176/88 H 145/89 H 145/89 H Pulse Oximetry 100 100 100 Oxygen Delivery Method Room Air Room Air Room Air BMI result Body Mass Index 22.8 Vital signs revealed elevated blood pressure of 176/88 Exam: General: Awake, alert in no distress Head: Normocephalic, atraumatic EENT: PERRL, Lids normal, sclera normal, conjunctiva normal, nose normal , ears normal, throat without erythema or exudates Neck: Supple, no adenopathy Lung: breath sounds symmetric, no wheezing, rales or rhonchi Chest: symmetric movement, nontender Heart: regular rate and rhythm, normal S1, S2 no murmurs or rubs Abdomen: soft, non-tender, nondistended, normal bowel sounds. Patient has a large, right inguinal hernia with significant tenderness palpation over the hernia, no skin changes noted Back: no vertebral tenderness, no CVAT Extremities: no deformities, moves all extremities symmetrically Neuro: Awake, alert, oriented, normal speech, cranial nerves intact, moves all extremities symmetrically Psych: Pleasant, cooperative Procedures Procedure Narrative Procedure Narrative: Right inguinal hernia reduction I did discuss the procedure with the patient did he did give me informed verbal consent. Patient was premedicated with morphine 4 mg IV and ice was applied to his right groin area. Patient was placed in Trendelenburg and with gentle pressure I was able to easily reduce his hernia. Patient had instant relief his pain after the procedure. Course Course Course Narrative: This is an RME performed by Cyndie Forrest CNP: Additional HPI, ROS, PE not included below will be deferred to primary provider. 88 yo male with PMHx of A fib on AC, GERD, prostate cancer, R inguinal hernia, presents to the ED due to 1 month of R side hernia pain, states pain is radiating down into R leg. States pain became worse today and noticed hernia has become larger. Has appointment with surgeon August 23. Called office for earlier appointment and was advised to come to the ED for evaluation. PE: firm, non reducible hernia of R inguinal area, no overlying skin changes, sitting up in wheelchair Plan: Labs, UA Medical Decision Making Medical Decision Making MDM Narrative: 88-year-old male with a history of right inguinal hernia, atrial fibrillation, rheumatoid arthritis, GERD, erectile dysfunction, prostate cancer, who presents emergency department for evaluation of right inguinal hernia pain and swelling. The patient states that he has had pain in his right groin area for proximally 1 month. He states that over the last 1-2 days the pain the pain got worse . Today, he noted increased swelling and severe pain in the right inguinal area. States that the pain is constant, sharp pain which is 8/10. The pain does radiate down in his right leg. He had several loose bowel movements this morning. He denied any dark, black stools or bloody stools. He has had no difficulty urinating or passing gas. He denied nausea, vomiting. He states that he has had a decreased appetite but he has been able to eat and drink without any difficulty. Vital signs revealed elevated blood pressure otherwise unremarkable. Physical examination did reveal a large right inguinal hernia which was very tender to palpation, no skin changes noted. Differential diagnosis: ?Includes but is not limited to right indirect inguinal hernia, incarcerated hernia, anemia, electrolyte abnormalities Course: 13:14 My independent interpretation patient's laboratory evaluation is as follows: Pancytopenia with WBC 3900, microcytic anemia with H&H 9.6 and 29 with an MCV 99.0, platelet count a 156,000. Sodium low 132. BUN elevated 17 with a normal creatinine. Elevated AST 41. Elevated alk-phos of 134. Lipase was normal. Patient's physical findings are consistent with incarcerated inguinal hernia. Patient was given morphine 4 mg IV and Zofran 4 mg IV. 14:01 The patient's inguinal hernia was easily reduced. The patient had instant relief after reduction. I did discuss getting a hernia truss/strap/girdle with the patient and his family. Patient was advised to take Tylenol for pain and to keep his appointment with our general surgeon. Admission/Observation Consideration of admission/observation: Escalation of care including admission/observation considered (Yes) Lab Data MDM Lab Attestation statement: I reviewed the patient's lab results. 07/04/24 12:36 07/04/24 12:36 Labs: Lab Results 07/04/24 07/04/24 Range/Units 12:36 13:16 WBC 3.9 L (4.8-10.8) X10*3/uL RBC 2.93 L (4.60-5.80) X10*6/uL Hgb 9.6 L (14.0-18.0) g/dl Hct 29.0 L (42.0-52.0) % MCV 99.0 H (80.0-98.0) fL MCH 32.8 (27.0-33.0) pg MCHC 33.1 (31.0-36.0) g/dl RDW 13.8 (11.0-16.0) % Plt Count 156 L D (160-400) X10*3/uL MPV 9.9 (9.4-12.4) fL Immature Gran % (Auto) 0.3 (0.0-0.4) % Neut % (Auto) 65.4 (45-73) % Lymph % (Auto) 17.3 L (20-40) % [place] % (Auto) 8.8 (2-11) % Eos % (Auto) 6.7 H (0-4) % Baso % (Auto) 1.5 (0-2) % Lymph # (Auto) 0.7 L (1.2-4.9) X10*3/uL [place] # (Auto) 0.3 (0.1-1.2) X10*3/uL Eos # (Auto) 0.3 (0.0-0.4) X10*3/uL Baso # (Auto) 0.1 (0.0-0.2) X10*3/uL Abs Immat Gran (auto) 0.01 (0.00-0.03) X10*3/uL Absolute Neuts (auto) 2.5 (2.0-8.3) x10*3/uL Absolute Nucleated RBC 0.000 (0.0-0.012) X10*3/uL Nucleated RBC % (auto) 0.0 (0.0-0.2) /100WBC Sodium 132 L (135-145) mmol/L Potassium 3.7 (3.3-5.1) mmol/L Chloride 105 (96-108) mmol/L Carbon Dioxide 23 (22-29) mmol/L Anion Gap 8 L (12-20) BUN 17 H (9-16) mg/dL Creatinine 1.13 (0.5-1.4) mg/dL Estim Creat Clear Calc 44.2 Estimated GFR > 60 Random Glucose 91 (60-115) mg/dL Calcium 8.7 (8.4-10.2) mg/dL Total Bilirubin 0.5 (0.0-1.0) mg/dL AST 41 H (5-37) U/L ALT 19 (0-40) U/L Alkaline Phosphatase 134 H (39-117) U/L Total Protein 6.9 (6.5-8.0) g/dL Albumin 3.2 L (3.5-5.0) g/dL Lipase 15 (8-78) U/L Urine Color Yellow Urine Appearance Clear Urine pH 6.5 (5.0-9.0) Ur Specific [place] <= 1.005 (1.005-1.025) Urine Protein Negative (Neg-Trace) mg/dL Urine Glucose (UA) Negative (Negative) mg/dL Urine Ketones Negative (Negative) mg/dL Urine Blood Negative (Negative) Urine Nitrite Negative (Negative) Ur Leukocyte Esterase Negative (Negative) Independent Historian Clinical information obtained from an independent historian. History obtained from or confirmed by: Other (Daughter and son-in-law) Chronic Conditions Patient?s care impacted by: Other (Prostate cancer) Medications Administered Discontinued Medications Generic Name Dose Route Start Last Admin Trade Name Freq PRN Reason Stop Dose Admin Morphine Sulfate 4 mg 07/04/24 13:06 07/04/24 13:16 Morphine Sulfate 4 Mg/Ml Cartridge IVPUSH 07/04/24 13:07 4 mg ONCE STA Administration Protocol Ondansetron HCl 4 mg 07/04/24 13:06 07/04/24 13:16 Ondansetron Hcl 4 Mg/2 Ml Vial IVPUSH 07/04/24 13:07 4 mg ONCE ONE Administration Discharge Plan Discharge Clinical Impression: Incarcerated right inguinal hernia Patient Disposition: Home, Self-Care Instructions: Inguinal Hernia (ED) Additional Instructions: You have a sliding inguinal hernia which got stuck in the inguinal canal. I was able to push (reduce) the hernia and push it through the inguinal canal and back into your belly. I recommend that you purchase an inguinal belt/girdle/truss and wear this to try to prevent the hernia from sliding back into the canal. If you feel a small bump in the groin area, apply ice to the area and then gently try to massage the bump upward so it goes back into your belly/abdomen. Take Tylenol (acetaminophen) 500 mg pills, 2 pills every 6 hours as needed for pain or fever. Follow-up with your doctor in 2 days. Please return to the emergency department if your symptoms get worse or if you develop any symptoms that are concerning to you. Keep your appointment with our general surgeon Prescriptions: No Action finasteride 5 mg tablet 5 mg PO DAILY 90 Days Qty: 90 3RF Eliquis 2.5 mg tablet 2.5 mg PO BID Qty: 180 3RF famotidine 20 mg tablet 20 mg PO TID Qty: 90 0RF furosemide 20 mg tablet 20 mg PO DAILY PRN (Reason: Edema) methotrexate sodium 2.5 mg tablet 10 mg PO SA folic acid 1 mg tablet 1 mg PO DAILY leflunomide 20 mg tablet 20 mg PO DAILY Interventions: ED Discharge Assessment Last Done: 07/04/24 14:23 Discharge Date/Time: 07/04/24 14:26 Print Language: [place] Irish
[2024-07-04 12:33] VITALS: BP 176/88; PULSE 90; RESP 18; TEMP 36.6; O2SAT 100; BMI 22.8
[2024-07-04 12:41] LABS: MANUAL DIFF FLAG NO
[2024-07-04 12:43] LABS: Basophils Absolute Auto 0.1 X10*3/uL (0.0-0.2); Basophils Percent Auto 1.5 % (0-2); Eosinophils Absolute Auto 0.3 X10*3/uL (0.0-0.4); Eosinophils Percent Auto 6.7 % (0-4); Hemoglobin 9.6 g/dl (14.0-18.0); Imm Gran Abs Auto 0.01 X10*3/uL (0.00-0.03); Imm Gran Pct Auto 0.3 % (0.0-0.4); Lymphocytes Absolute Auto 0.7 X10*3/uL (1.2-4.9); Lymphocytes Percent Auto 17.3 % (20-40); Mean Corpuscular HGB Conc 33.1 g/dl (31.0-36.0); Mean Corpuscular Hemoglobin 32.8 pg (27.0-33.0); Mean Platelet Volume 9.9 fL (9.4-12.4); Monocytes Absolute Auto 0.3 X10*3/uL (0.1-1.2); Monocytes Percent Auto 8.8 % (2-11); Neutrophils Absolute Auto 2.5 x10*3/uL (2.0-8.3); Neutrophils Percent Auto 65.4 % (45-73); Platelet Count 156 X10*3/uL (160-400); Red Blood Count 2.93 X10*6/uL (4.60-5.80); Red Cell Distribution Width 13.8 % (11.0-16.0); White Blood Count 3.9 X10*3/uL (4.8-10.8)
[2024-07-04 12:44] VITALS: BP 145/89; PULSE 88; RESP 18; TEMP 36.6; O2SAT 100
--- NOTE | 2024-07-04 12:57 | PC.NURSE ---
Patient is an 88-year-old male presenting with a known right inguinal hernia increasing over the past 3 weeks. The patient has a notable history of pulmonary embolism for which he continues on anticoagulant therapy. Atrial fibrillation developed during hospitalization related to respiratory treatments, leading to a continued prescription of antiarrhythmics. His prostate condition is managed with tamsulosin, and he uses medication for occasional dyspepsia. Lungs clear bilat. Respirations even and non-labored. Abdomen soft, non-tender with positive bowel sounds. Large right inguinal hernia noted with pain radiating down his leg. Provider at the bedside
--- OUTSIDE RECORDS SUMMARY | 2024-07-04 12:58 | XMS_ITS | Patient Health Record ---
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 Problem 53673471 Colon polyps (K63.5) Active confirmed Problem [id number] Adenomatous poly p of colon, unspecified part of colon (D12.6) Active confirmed Problem 430854042 Rectal adenoma (D12.8) Active confirmed Plan Of Treatment Future Test Test Name Order Date COLONOSCOPY 02/07/2013 UPPER GI ENDOSCOPY 06/10/2014 COLONOSCOPY 06/10/2014 UPPER GI ENDOSCOPY 09/06/2017 COLONOSCOPY 09/06/2017 Insurance Providers Payer Name Payer Address Payer Phone Subscriber Number Group Number Insured Name Patient Relationship to Insured Coverage Start Date Coverage End Date MEDICARE OF [employer] [address] [place] FOY [id number] GLENN WARE Self - patient is the insured [employer] [address] [place] [address] [id number] GLENN WARE Self - patient is the [...] denoma requiring transanal surgical resection, Dr. Rosenberg [facility], 2012 Atrial fibrillation Surgical History Surgery Date(Month/Year) hemorrhoidectomy appendectomy tonsillectomy Transanal polypectomy
[2024-07-04 13:00] LABS: Alanine Aminotransferase 19 U/L (0-40); Albumin Level 3.2 g/dL (3.5-5.0); Alkaline Phosphatase 134 U/L (39-117); Anion Gap 8 (12-20); Aspartate Amino Transferase 41 U/L (5-37); Bilirubin Total 0.5 mg/dL (0.0-1.0); Blood Urea Nitrogen 17 mg/dL (9-16); Calcium 8.7 mg/dL (8.4-10.2); Carbon Dioxide 23 mmol/L (22-29); Chloride 105 mmol/L (96-108); Creatinine Clr Calc Pharmacy 44.2; Estimated Glomerular Filt Rate > 60; Glucose Random 91 mg/dL (60-115); Lipase 15 U/L (8-78); Potassium 3.7 mmol/L (3.3-5.1); Sodium 132 mmol/L (135-145); Total Protein 6.9 g/dL (6.5-8.0)
[2024-07-04] MEDS: ondansetron HCL 4 MG/2 ML VIAL IVPUSH (13:16)
[2024-07-04] MEDS: Morphine Sulfate 4 MG/ML CARTRIDGE IVPUSH (13:16)
[2024-07-04 13:28] LABS: Appearance Urine Clear; Color Urine Yellow; Glucose Urine UA Negative (Negative); Leukocyte Esterase Urine Negative (Negative); Nitrite Urine Negative (Negative); PH 6.5 (5.0-9.0); Specific Gravity - Urine <= 1.005 (1.005-1.025); Urine Blood Negative (Negative); Urine Ketones Negative (Negative); Urine Protein Negative (Neg-Trace)
--- NOTE | 2024-07-04 13:50 | PC.NURSE ---
Inguinal hernia reduced without difficulty. Patient tolerated procedure well.
[2024-07-04 14:23] VITALS: BP 145/89; PULSE 88; RESP 18; TEMP 36.6; O2SAT 100
== END 2024-07-04 14:26 | disposition home or self-care (01) ==
PROVIDERS: Nurse Practitioner Family; Emergency Provider Emergency Medicine Emergency Medical Services; PCP Internal Medicine
DX: K40.90 Unilateral inguinal hernia, without obstruction or gangrene, not specified as recurrent (principal)
CPT/HCPCS: 36415; 80053; 81003; 83690; 85025; 96374; 96375; 99284; J2270; J2405

== ENCOUNTER 2024-07-23 14:15 | Outpatient (AMB) | payer MEDICARE, OTHER, SELFPAY ==
[2024-07-23 14:22] VITALS: BP 127/73; PULSE 89; BMI 24.0
--- NOTE | 2024-07-23 14:22 | A.OFFVIS_ITS ---
Vital Signs 07/23/24 14:22 Height 5 ft 8 in Weight 158 lb BMI 24.0 BP 127/73 Blood Pressure Location Rt brachial Position Sitting Pulse 89 Intake Visit Reasons: unilateral inguinal hernia Intake Note: Patient referred by pcp Dr. David for Unilateral inguinal hernia. Pelvic US order placed. Patient c/o: rt groin pain. Wearing belt. Laying down helps. 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 He said he has noticed this mass on his right groin for about 3-4 months now. This would be reducible. He says that this causes pain when this is ?out?. He says that he has to lie down and massage this to push this back in and this would resolve the pain This has been going on for several months. He says he wants to have this repaired. He has known atrial fibrillation. He takes Eliquis. He does have shortness of breath with ambulation he still plays golf however but uses the golf cart. 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 Mother No problems noted. Social History Household Members: None Housing: House Are you a primary school child care attendant to a significant other at home: No Do you presently have visiting nurse or other home services: No Alcohol intake: never Patient Tobacco Use Status: Former Tobacco user Tobacco use type: Cigarette e-Cigarette/Vaping Use: Former Use Advance Directives Date on File: 11/14/22 service: Yes Current occupational status: retired Current occupation: rt handed Cognitive needs: Yes (cane) Hearing needs: No Vision needs: Yes (reading glasses) Review of Systems Const Denies chills and Denies fever(s) Card Denies chest pain, Denies dyspnea and Reports dyspnea on exertion Resp Denies cough, Denies dyspnea and Reports dyspnea on exertion GI Denies hematochezia and Denies change in bowel habits Denies hematuria and Denies difficulty urinating Musc Reports abnormal gait, Reports back pain and Denies limited range of motion Neuro Reports abnormal gait, Denies focal weakness and Denies convulsions Psych Denies depression and Denies mood swings Physical Exam Vital Signs: Last Vital Signs Pulse 89 07/23/24 14:22 BP 127/73 07/23/24 14:22 BMI result Body Mass Index 24.0 Const Other: Ambulates with a cane General: comfortable and no acute distress Orientation/consciousness: patient oriented x3 Neck Neck: Yes no lymphadenopathy Resp Auscultation: clear to auscultation bilaterally Cardio Other: AFib Rhythm: abnormal rhythm GI Other: Right inguinal hernia, reducible when supine Palpation (GI): Soft to palpation, nontender and no guarding Neuro General: patient oriented x3 Assessment & Plan Assessment & Plan (1) Right inguinal hernia: Code(s): K40.90 - Unilateral inguinal hernia, without obstruction or gangrene, not specified as recurrent Category: Medical Plan: He has this large right inguinal hernia. This has reducible when he is supine. He does complain of significant pain and discomfort when this is out He really wants to have surgery. He says he still plays golf the he uses a golf cart He does have a significant cardiac history with his atrial fibrillation and is on Eliquis. I will send him to the blade aligner for preop evaluation prior to his surgery. He understands the technique of repair of the right inguinal hernia with mesh. He is aware of the risks including but not limited to bleeding, infections, injury to bowel, injury to the vas deferens, recurrence, postop pain. He does understand that he has elevated perioperative risks in view of his age as well as his atrial fibrillation. His daughter Adali was with him during the visit. She did state as well that she wished that he would not go for surgery but would leave the decision to him. Coding Level of Care Code New Pt Level 3 (65251) Diagnoses Right inguinal hernia K40.90
--- OUTSIDE RECORDS SUMMARY | 2024-07-23 15:11 | XMS_ITS | Patient Health Record ---
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 Problem 39237649 Colon polyps (K63.5) Active confirmed Problem 473680684 Adenomatous poly p of colon, unspecified part of colon (D12.6) Active confirmed Problem 878973554 Rectal adenoma (D12.8) Active confirmed Plan Of Treatment Future Test Test Name Order Date COLONOSCOPY 02/07/2013 UPPER GI ENDOSCOPY 06/10/2014 COLONOSCOPY 06/10/2014 UPPER GI ENDOSCOPY 09/06/2017 COLONOSCOPY 09/06/2017 Insurance Providers Payer Name Payer Address Payer Phone Subscriber Number Group Number Insured Name Patient Relationship to Insured Coverage Start Date Coverage End Date MEDICARE OF [employer]LI TORRES [address] [place] [id number] GLENN WARE Self - patient is the insured [employer] [address] [place] [address] [id number] GLENN WARE Self - patient is the [...] denoma requiring transanal surgical resection, Dr. Rosenberg [facility], 2012 Atrial fibrillation Surgical History Surgery Date(Month/Year) hemorrhoidectomy appendectomy tonsillectomy Transanal polypectomy
== END 2024-07-23 14:55 | disposition home or self-care (01) ==
LOC: HO.HGS 14:16
PROVIDERS: PCP Internal Medicine; Visit Provider Surgery
DX: K40.90 Unilateral inguinal hernia, without obstruction or gangrene, not specified as recurrent (principal)
CPT/HCPCS: 99203

== ENCOUNTER → 2024-07-23 14:15 | Outpatient (BNVA) | payer MEDICARE, OTHER, SELFPAY | PROVIDERS: PCP Internal Medicine; Visit Provider Surgery | DX: K40.90 Unilateral inguinal hernia, without obstruction or gangrene, not specified as recurrent (principal) | CPT/HCPCS: 99202 ==

== ENCOUNTER 2024-07-31 10:29 | Outpatient (AMB) | payer MEDICARE, OTHER, SELFPAY ==
--- NOTE | 2024-07-31 10:40 | A.OFFPC_ITS ---
Vital Signs 07/31/24 10:41 Height 5 ft 8 in Weight 156 lb 4 oz BMI 23.8 BP 100/60 Blood Pressure Location Lt brachial Position Sitting Pulse 90 Pulse Source Pulse Oximeter Temp 97.1 F Temp Source Temporal Artery Scan Pulse Oximetry (%) 99 Oxygen Delivery Method Room Air Intake Visit Reasons: Upcoming GI procedure not sched yet Intake Note: Patient is here for a Pre-op for GI procedure (Hernia) scheduled with Dr Willard on 08/19/24. Evp Managing Director Required: No Senior Clinical Sas Programmer: Not Required per policy Accompanied by: Self / Same As Patient Allergies No Known Allergies Allergy (Verified 08/08/24 08:59) Medication List - Last Reconciled 08/08/24 by Kevin David MD apixaban (Eliquis) 2.5 mg PO BID famotidine 20 mg PO TID finasteride 5 mg PO DAILY 90 days folic acid 1 mg PO DAILY leflunomide 20 mg PO DAILY Tobacco use date assessed: 07/31/24 Fall risk assessment: No Falls in past year Last assessed Fall Risk: 07/31/24 Dental Screening Dental Screen Date: 06/25/24 [facility] Medical History Right inguinal hernia Persistent atrial fibrillation Rheumatoid arthritis Atrial fibrillation Nocturia GERD (gastroesophageal reflux disease) Erectile dysfunction 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 Mother No problems noted. Social History Household Members: None Housing: House Are you a primary health care attorney to a significant other at home: No Do you presently have visiting nurse or other home services: No Alcohol intake: never Patient Tobacco Use Status: Former Tobacco user Tobacco use type: Cigarette e-Cigarette/Vaping Use: Former Use Second Hand Smoke Exposure: Yes Advance Directives Date on File: 11/14/22 service: Yes Current occupational status: retired Current occupation: rt handed Cognitive needs: Yes (cane) Hearing needs: No Vision needs: Yes (reading glasses) Questionnaire Thrive Questionnaire Date Thrive assessed: 06/25/24 FATMATA-7 AMB Questionnaire FATMATA-7 Date FATMATA - 7 assessed: 06/25/24 Source: Developed by Drs. Morgan Méndez, Iris Dye, Cl Huynh and colleagues, with an educational doris from [employer]. Physical exam (Primary Care) Vital Signs: Last Vital Signs Temp 97.1 F 07/31/24 10:41 Pulse 90 07/31/24 10:41 BP 100/60 07/31/24 10:41 Pulse Ox 99 07/31/24 10:41 Oxygen Delivery Method Room Air 07/31/24 10:41 BMI result Body Mass Index 23.8 Tobacco/Smoking Status: Tobacco use Status Tobacco use date assessed 07/31/24 07/31/24 10:51 Patient Tobacco Use Status Former Tobacco user 07/31/24 10:51 Tobacco use type Cigarette 07/31/24 10:51 e-Cigarette/Vaping Use Former Use 07/31/24 10:51 Thrive Assessment: Date of Thrive Assessment Date Thrive assessed 06/25/24 07/31/24 10:51 Coding Level of Care Code New Pt Level 4 (18939) Complex EM visit Add On G2211 Diagnoses Right inguinal hernia K40.90 Pre-operative clearance Z01.818 Assessment & Plan Assessment & Plan (1) Right inguinal hernia: Code(s): K40.90 - Unilateral inguinal hernia, without obstruction or gangrene, not specified as recurrent Category: Medical Plan: Patient is a candidate for surgery. Further decisions as per the surgeon (2) Pre-operative clearance: Code(s): Z01.818 - Encounter for other preprocedural examination Plan: BW revd, NCNC anemia. Hold 4 doses of anticoagulant. Can proceed for surgery. Post op care including restarting anticoagulation as per surgeon.
[2024-07-31 10:41] VITALS: BP 100/60; PULSE 90; TEMP 36.2; O2SAT 99; BMI 23.8
== END 2024-07-31 12:01 | disposition home or self-care (01) ==
LOC: HO.HMCH 10:30
PROVIDERS: PCP Internal Medicine; Visit Provider Internal Medicine
DX: K40.90 Unilateral inguinal hernia, without obstruction or gangrene, not specified as recurrent (principal); Z01.818 Encounter for other preprocedural examination

== ENCOUNTER → 2024-07-31 10:29 | Outpatient (BNVA) | payer MEDICARE, OTHER, SELFPAY | PROVIDERS: PCP Internal Medicine; Visit Provider Internal Medicine | DX: Z01.818 Encounter for other preprocedural examination (principal); K40.90 Unilateral inguinal hernia, without obstruction or gangrene, not specified as recurrent | CPT/HCPCS: 99212 ==

== ENCOUNTER 2024-08-19 10:21 | Day surgery (SDC) | payer MEDICARE, OTHER, SELFPAY ==
--- OUTSIDE RECORDS SUMMARY | 2024-08-11 16:58 | XMS_ITS | Patient Health Record ---
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 Problem 52846303 Colon polyps (K63.5) Active confirmed Problem 445278178 Adenomatous poly p of colon, unspecified part of colon (D12.6) Active confirmed Problem 534613710 Rectal adenoma (D12.8) Active confirmed Plan Of Treatment Future Test Test Name Order Date COLONOSCOPY 02/07/2013 UPPER GI ENDOSCOPY 06/10/2014 COLONOSCOPY 06/10/2014 UPPER GI ENDOSCOPY 09/06/2017 COLONOSCOPY 09/06/2017 Insurance Providers Payer Name Payer Address Payer Phone Subscriber Number Group Number Insured Name Patient Relationship to Insured Coverage Start Date Coverage End Date MEDICARE OF [employer]LI TORRES [address] [place] [id number] GLENN WARE Self - patient is the insured [employer] [address] [place] [address] [phone] [id number] GLENN WARE Self - patient is the [...] denoma requiring transanal surgical resection, Dr. Rosenberg [facility], 2012 Atrial fibrillation Surgical History Surgery Date(Month/Year) hemorrhoidectomy appendectomy tonsillectomy Transanal polypectomy
[2024-08-15 13:15] VITALS: BMI 23.8
--- NOTE | 2024-08-18 10:05 | HO.ANESPROP2 ---
Documented by User: Jennifer Wu NP 08/18/24 10:09 HPI - Anesthesia Eval Consult details Narrative: 88yo M for Right Hernia Inguinal Reducible with mesh Medically optimized per PCP and ok'd to hold eliquis per cardiology Afib: Eliquis. Follows [facility] Cardiology. Stable at 05/2024 office visit for 6 month routine f/u. Some leg swelling d/t dependant edema, no further work up required. PMF Active Problems Active Problems: All Active Problems Hip bursitis, left (Acute) Wound of right leg (Acute) Tendonitis of left rotator cuff (Acute) Fracture, intertrochanteric, right femur (Acute) Right femoral fracture (Acute) Tendonitis of both rotator cuffs (Acute) Bursitis of left shoulder (Acute) Subacromial bursitis of right shoulder joint (Acute) Right inguinal hernia (Acute) Malignant neoplasm of prostate (Acute) Past Medical History Medical History Right inguinal hernia Persistent atrial fibrillation Rheumatoid arthritis Atrial fibrillation Nocturia GERD (gastroesophageal reflux disease) Erectile dysfunction 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 Mother No problems noted. Family history of problems with anesthesia: No Surgical History Surgical History Hx of bilateral cataract extraction Previous back surgery Hx of appendectomy History of esophagogastroduodenoscopy (EGD) H/O colonoscopy (~01/04/18) History of Problems with Anesthesia: No Social History Social History Household Members: None Housing: House Are you a primary customer care coordinator to a significant other at home: No Do you presently have visiting nurse or other home services: No Alcohol intake: never Patient Tobacco Use Status: Former Tobacco user Tobacco use type: Cigarette e-Cigarette/Vaping Use: Former Use Second Hand Smoke Exposure: Yes Use of substances other than those prescribed or required for medical reasons: No Have you been hit, kicked, punched, or otherwise hurt by someone within the past year? If so, by whom?: No Are you DNR?: No Advance Directives: No Advance Directives Information Provided: Yes Advance Directives Date on File: 11/14/22 Poor oral hygiene: Yes service: Yes Current occupational status: retired Current occupation: rt handed Cognitive needs: Yes (cane) Hearing needs: No Vision needs: Yes (reading glasses) Meds Allergies Allergy/AdvReac Type Severity Reaction Status Date / Time No Known Allergies Allergy Verified 08/19/24 10:47 Home Medications ?Medication ?Instructions ?Recorded ?Confirmed ?Last Taken ?Type folic acid 1 mg tablet 1 mg PO DAILY 08/16/22 08/15/24 11/07/22 History leflunomide 20 mg tablet 20 mg PO DAILY 05/04/23 08/15/24 Unknown History Exam Height,Weight and Vital Signs: Height 5 ft 8 in Weight 70.874 kg Narrative Narrative: EKG 05/2024 EKG Details: EKG with underlying atrial fibrillation at a rate of 95/Min. 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 Mother No problems noted. Surgical History Surgical History Hx of bilateral cataract extraction Previous back surgery Hx of appendectomy History of esophagogastroduodenoscopy (EGD) H/O colonoscopy (~01/04/18) Social History Social History Household Members: None Housing: House Are you a primary customer care coordinator to a significant other at home: No Do you presently have visiting nurse or other home services: No Alcohol intake: never Patient Tobacco Use Status: Former Tobacco user Tobacco use type: Cigarette e-Cigarette/Vaping Use: Former Use Second Hand Smoke Exposure: Yes Use of substances other than those prescribed or required for medical reasons: No Have you been hit, kicked, punched, or otherwise hurt by someone within the past year? If so, by whom?: No Are you DNR?: No Advance Directives: No Advance Directives Information Provided: Yes Advance Directives Date on File: 11/14/22 Poor oral hygiene: Yes service: Yes Current occupational status: retired Current occupation: rt handed Cognitive needs: Yes (cane) Hearing needs: No Vision needs: Yes (reading glasses) Meds Allergies Allergy/AdvReac Type Severity Reaction Status Date / Time No Known Allergies Allergy Verified 08/19/24 10:47 Home Medications ?Medication ?Instructions ?Recorded ?Confirmed ?Last Taken ?Type folic acid 1 mg tablet 1 mg PO DAILY 08/16/22 08/15/24 11/07/22 History leflunomide 20 mg tablet 20 mg PO DAILY 05/04/23 08/15/24 Unknown History Exam Exam Date and Time: 08/19/2024 Airway Mallampati Class: II TM Dist: >3cm Neck ROM: Full Denture: Upper (full upper denture, dentures in the bottom) Heart: irregula, a fib. last eliquis dose 3 days ago Lungs: cta Other: normal conition and orientation Assessment and Plan Final Anesthetic Review NPO: Yes ASA Class: III Final Preanesthetic Review: No Changes in Pt Med Stat, Meds/Allgs Chart Reviewed and Consent Obtained/Reviewed Patient Risk: Intermediate Procedure Risk: Low Anesthetic Plan Anesthetic Plan: GA and Agree w/ Assess. and Plan Disposition: Standard PACU
[2024-08-19] VITALS (7 sets, daily range): BP systolic 99–148; BP diastolic 51–81; PULSE 77–82; RESP 14–16; TEMP 36.2–37; O2SAT 97–98; BMI 22.8
[2024-08-19] MEDS: Lactated Ringers 1,000 ML 100 ML IVCONT (11:15)
--- NOTE | 2024-08-19 13:17 | MHC.SHP ---
Pre-Procedural Eval Section A - 24 Hr Update-Section A only Date of Service: 08/19/24 The patient is an INPATIENT: No Changes since office visit: No Cold of Flu in the past 2 weeks, No New Medical Problems, No Changes in Medication and No Patient answered all questions The patient has been examined within 24 hours of the surgical procedure. The History & Physical has been completed within 30 days and I have reviewed it.: Yes Section B - Complete if H&P > 30 days Chief Complaint: Unilateral inguinal hernia, without obstruction or Allergies: Allergies Allergy/AdvReac Type Severity Reaction Status Date / Time No Known Allergies Allergy Verified 08/19/24 10:47 Plan I have reviewed the history and physical and performed a pertinent physical examination on my patient. No changes have occurred unless specified. Time Spent With Patient Time: Total time managing care of this patient today ____ minutes.
--- NOTE | 2024-08-19 14:43 | W.PM.OPN ---
Operative Note Operative Note Date of Service: 08/19/24 Narrative: Preop diagnosis: Right inguinal hernia reducible Postop diagnosis: Right inguinal hernia, indirect, reducible Procedure: Repair of right inguinal hernia with mesh Surgeon: Suman Willard MD licensed occupational therapy assistant: DELMY Salguero The patient is an 88-year-old male, with a reducible mass in the right groin. In view of discomfort, he wanted to proceed with repair. He says he still plays golf and is uncomfortable with playing with his hernia. He understood the technique of the planned procedure as well as the risks, benefits, and alternatives He was brought to the operating room and placed supine under general anesthesia via laryngeal mask airway. The right groin was prepped and draped in the usual sterile fashion. A surgical time-out was done. The patient received cefazolin 2 g IV preoperatively I infiltrated the planned line of incision with lidocaine 1%. I made a short incision in the skin along an imaginary line from anterior superior iliac spine to the pubic ramus with a blade 15. This was carried down through the full-thickness of the skin and subcutaneous fat with electrocautery. I expose the external oblique aponeurosis. I bluntly dissected this to define the external ring. I opened up the external ring by incising the external oblique aponeurosis with electrocautery. I applied hemostasis on the divided edges of the aponeurosis. I bluntly dissected the underside of the aponeurosis with finger to create a pocket for the mesh. I then proceeded to gently dissect the spermatic cord and its contents with my index finger until was able to pass a Sisters drain around this. The Sisters drain was used for retraction. I examined the spermatic cord and identified the vas deferens. There was did during the dissection. A fat containing inguinal hernia adjacent to the cord, into the internal ring. This was therefore indirect hernia. I gently dissected the contents of the hernia off of the rest of the cord down to the internal ring until I was able to completely reduce this. I reinforced the internal ring with a large size Prolene plug. The plug was secured to the shelving edge of the inguinal meant laterally internal oblique superiorly medially using the inner leaves of the plug.. I reinforced the entire floor of the canal with a keyhole mesh. The tails of the mesh were passed around the cord at the level of the internal ring with the Prolene 2-0 stitch. I flattened the mesh on the floor. I secured the mesh to the shelving edge of the inguinal meant laterally and the internal oblique superiorly medially as well as the pubic ramus inferomedially with Prolene 2 sutures. I irrigated. Hemostasis was confirmed, I then proceeded to close the divided external oblique aponeurosis with a running Polysorb 2-0 stitch to re-create the external ring. The Darin drain had been told at this point I then reapposed the subcutaneous layer with Polysorb 3-0 simple interrupted sutures. Skin closure was achieved with Polysorb 4-0 subcuticular running stitch. The area was infiltrated with Marcaine 0.5% for postop analgesia. Dressings were applied and the procedure was completed The patient tolerated the procedure well. There were no immediate complications. Initial and final counts of sponges and instruments were correct. Estimated blood loss was less than 25 cc. The patient is extubated without difficulty and transferred to recovery room with stable vital signs.
== END 2024-08-19 16:00 | disposition home or self-care (01) ==
PROVIDERS: PCP Internal Medicine; Visit Provider Surgery
PROC: (CPT 49505; principal; 2024-08-19 13:00)
DX: K40.90 Unilateral inguinal hernia, without obstruction or gangrene, not specified as recurrent (principal); I48.19 Other persistent atrial fibrillation; R03.0 Elevated blood-pressure reading, without diagnosis of hypertension; C61 Malignant neoplasm of prostate; R35.1 Nocturia; N52.9 Male erectile dysfunction, unspecified; K21.9 Gastro-esophageal reflux disease without esophagitis; M06.9 Rheumatoid arthritis, unspecified; Z79.01 Long term (current) use of anticoagulants; Z79.899 Other long term (current) drug therapy; Z98.890 Other specified postprocedural states; Z87.891 Personal history of nicotine dependence
CPT/HCPCS: 49505; C1781; J0690; J2003; J2405; J2704; J2795; J3010

== ENCOUNTER → 2024-08-19 10:21 | Outpatient (BNV) | payer MEDICARE, OTHER, SELFPAY | PROVIDERS: PCP Internal Medicine; Visit Provider Surgery | DX: K40.90 Unilateral inguinal hernia, without obstruction or gangrene, not specified as recurrent (principal) | CPT/HCPCS: 49505 ==

== ENCOUNTER 2024-09-01 10:57 | Outpatient (AMB) | payer MEDICARE, OTHER, SELFPAY ==
--- NOTE | 2024-09-01 11:02 | MHC.OFFVIS ---
Vital Signs 09/01/24 11:07 Height 5 ft 8 in Weight 149 lb 14.629 oz BMI 22.8 BP 110/62 Blood Pressure Location Lt brachial Position Sitting Intake Visit Reasons: S/P RIH w/mesh Intake Note: Patient is seen in office for post op assessment post right inguinal hernia repair. Pt c/o: denies n/v/d/c, admits to sore in the incision area and some right leg pain surgery:08/19/24 Title Curator Required: No Accompanied by: Family/Other Allergies No Known Allergies Allergy (Verified 09/01/24 11:06) HPI HPI S/P RIH w/mesh: Details: Mr. Disla is an 88 year old male who is here following RIH repair with mesh on 08/19/[address] Willard. He tolerated the procedure well. He took approximately 10 pills of the percocet for a few days after the surgery and then stopped. He denies pain but has some mild discomfort at the incision site/ right groin and right upper leg mostly with walking. He is eating ok. He is moving his bowels daily. He feels back to baseline and is asking when he can golf. He has resumed his eliquis. 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 Mother No problems noted. Social History Household Members: None Housing: House Are you a primary patient care technician instructor to a significant other at home: No Do you presently have visiting nurse or other home services: No Alcohol intake: never Comment: counts correct Patient Tobacco Use Status: Former Tobacco user Tobacco use type: Cigarette e-Cigarette/Vaping Use: Former Use Second Hand Smoke Exposure: Yes Advance Directives Date on File: 11/14/22 service: Yes Current occupational status: retired Current occupation: rt handed Cognitive needs: Yes (cane) Hearing needs: No Vision needs: Yes (reading glasses) Review of Systems Const All systems reviewed & are unremarkable except as noted in HPI and below Physical Exam Vital Signs: Last Vital Signs BP 110/62 09/01/24 11:07 BMI result Body Mass Index 22.8 Const General: comfortable, no acute distress and alert Orientation/consciousness: patient oriented x3 Resp Effort & Inspection: normal respiratory effort, able to speak in complete sentences and not labored GI Other: right inguinal hernia repair incision healing well, no erythema, very mild residual induration, mild ecchymosis overlying pubic tubercle extending into right groin, mildly tender to palpation Palpation (GI): Soft to palpation and no guarding Percussion: Yes normal to percussion Neuro General: patient oriented x3 and moves all extremities Assessment & Plan Assessment & Plan (1) S/P right inguinal hernia repair, follow-up exam: Code(s): Z09 - Encounter for follow-up examination after completed treatment for conditions other than malignant neoplasm Category: Surgical Plan 88 year old male who is s/p RIH repair with mesh on 08/19/24. He tolerated the procedure well. He has only very mild incisional discomfort and the incision site is healing well without evidence of infection or recurrence. He has some mild surrounding ecchymosis. He was instructed to continue to limit heavy lifting and strenuous exercises including golf until he is 6 weeks post op. He can resume putting and light activities. He is to follow up in 1 month or sooner if needed. Patient and daughter comfortable with plan. Coding Level of Care Code Global (08630) Diagnoses S/P right inguinal hernia repair, follow-up exam Z09
[2024-09-01 11:07] VITALS: BP 110/62; BMI 22.8
--- OUTSIDE RECORDS SUMMARY | 2024-09-01 11:57 | XMS_ITS | Patient Health Record ---
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 Problem 79037006 Colon polyps (K63.5) Active confirmed Problem 325835446 Adenomatous poly p of colon, unspecified part of colon (D12.6) Active confirmed Problem 257210127 Rectal adenoma (D12.8) Active confirmed Plan Of Treatment Future Test Test Name Order Date COLONOSCOPY 02/07/2013 UPPER GI ENDOSCOPY 06/10/2014 COLONOSCOPY 06/10/2014 UPPER GI ENDOSCOPY 09/06/2017 COLONOSCOPY 09/06/2017 Insurance Providers Payer Name Payer Address Payer Phone Subscriber Number Group Number Insured Name Patient Relationship to Insured Coverage Start Date Coverage End Date MEDICARE OF [employer]RES [address] [place] [id number] GLENN WARE Self - patient is the insured [employer] [address] [place] [address] [id number] GLENN WARE Self - patient is the [...] denoma requiring transanal surgical resection, Dr. Rosenberg [facility], 2012 Atrial fibrillation Surgical History Surgery Date(Month/Year) hemorrhoidectomy appendectomy tonsillectomy Transanal polypectomy
== END 2024-09-01 11:22 | disposition home or self-care (01) ==
LOC: HO.HGS 10:58
PROVIDERS: PCP Internal Medicine; Visit Provider Surgery
DX: Z09 Encounter for follow-up examination after completed treatment for conditions other than malignant neoplasm (principal)
CPT/HCPCS: 99024

== ENCOUNTER → 2024-09-01 10:57 | Outpatient (BNVA) | payer MEDICARE, OTHER, SELFPAY | PROVIDERS: PCP Internal Medicine; Visit Provider Surgery | DX: Z48.815 Encounter for surgical aftercare following surgery on the digestive system (principal); Z98.890 Other specified postprocedural states | CPT/HCPCS: 99212 ==

== ENCOUNTER 2024-10-02 09:49 | Outpatient (AMB) | payer MEDICARE, OTHER, SELFPAY ==
--- NOTE | 2024-10-02 09:53 | MHC.OFFVIS ---
Vital Signs 10/02/24 09:54 Height 5 ft 8 in Weight 149 lb 14.629 oz BMI 22.8 BP 147/78 H Blood Pressure Location Lt brachial Position Sitting Respiration 18 Pulse 90 Pulse Oximetry (%) 97 Oxygen Delivery Method Room Air Intake Visit Reasons: 1 month follow up RIH w/mesh Allergies No Known Allergies Allergy (Verified 09/01/24 11:06) HPI HPI 1 month follow up RIH w/mesh: Details: Doing well. No pain at the incision site. Some pain in the right leg especially with ambulation attributes this to his previous surgical history following a right hip fracture, right IM nail. 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 Mother No problems noted. Social History Household Members: None Housing: House Are you a primary pediatric critical care nurse to a significant other at home: No Do you presently have visiting nurse or other home services: No Alcohol intake: never Comment: counts correct Patient Tobacco Use Status: Former Tobacco user Tobacco use type: Cigarette e-Cigarette/Vaping Use: Former Use Second Hand Smoke Exposure: Yes Advance Directives Date on File: 11/14/22 service: Yes Current occupational status: retired Current occupation: rt handed Cognitive needs: Yes (cane) Hearing needs: No Vision needs: Yes (reading glasses) Review of Systems Const All systems reviewed & are unremarkable except as noted in HPI and below Musc Reports arthralgias Physical Exam Vital Signs: Last Vital Signs Pulse 90 08/07/25 09:54 Resp 18 10/02/24 09:54 BP 147/78 H 10/02/24 09:54 Pulse Ox 97 10/02/24 09:54 Oxygen Delivery Method Room Air 10/02/24 09:54 BMI result Body Mass Index 22.8 Const General: comfortable and no acute distress Orientation/consciousness: patient oriented x3 Resp Effort & Inspection: normal respiratory effort and able to speak in complete sentences GI Other: Right inguinal hernia: Incision site healing well, mild induration deep to the incision site no palpable fluid collection, nontender, no surrounding erythema. No recurrence with Valsalva Inspection: No distended Palpation (GI): Soft to palpation and nontender Neuro General: patient oriented x3 Assessment & Plan Assessment & Plan (1) S/P right inguinal hernia repair, follow-up exam: Code(s): Z09 - Encounter for follow-up examination after completed treatment for conditions other than malignant neoplasm Category: Medical Plan 88-year-old male s/p right inguinal hernia repair on 08/19/2024 presenting to the office for routine follow up. Patient doing very well, incision site not causing him pain. Does have pain in the right hip this is likely secondary to his previous hip fracture right IM nail, he is using a walker for support as needed. Appetite and bowel function at baseline. On exam his abdomen is soft and benign, the incision site is healing well no concern for infection there was no recurrence with Valsalva. Patient is okay to resume activity without restrictions. I did recommend that he begin slow, in terms of golf, starting with chipping and putting and slowly working up to full swings. Patient agreeable to this plan. No longer requiring routine follow up. He can follow up as needed with any concerns Coding Level of Care Code Global (60321) Diagnoses S/P right inguinal hernia repair, follow-up exam Z09
[2024-10-02 09:54] VITALS: BP 147/78; PULSE 90; RESP 18; O2SAT 97; BMI 22.8
== END 2024-10-02 10:12 | disposition home or self-care (01) ==
LOC: HO.HGS 09:49
PROVIDERS: PCP Internal Medicine
DX: Z09 Encounter for follow-up examination after completed treatment for conditions other than malignant neoplasm (principal)
CPT/HCPCS: 99024

== ENCOUNTER → 2024-10-02 09:49 | Outpatient (BNVA) | payer MEDICARE, OTHER, SELFPAY | PROVIDERS: PCP Internal Medicine | DX: Z09 Encounter for follow-up examination after completed treatment for conditions other than malignant neoplasm (principal); Z98.890 Other specified postprocedural states | CPT/HCPCS: 99212 ==

== ENCOUNTER 2024-12-03 14:59 | Outpatient (AMB) | payer MEDICARE, OTHER, SELFPAY ==
--- NOTE | 2024-12-03 15:13 | A.OFFVIS_ITS ---
Vital Signs 12/03/24 15:31 Height 5 ft 8 in Weight 149 lb BMI 22.7 Intake Visit Reasons: Inj-B/L shoulder injections-last inj 11/22/23 Intake Note: Matthew an 88 year old male who presents today for bilateral shoulder injections, last injection 11/22/23. Patient reports last injections provided him with relief, he wishes to repeat injection today. Allergies No Known Allergies Allergy (Verified 12/03/24 15:32) HPI HPI Inj-B/L shoulder injections-last inj 11/22/23: Details: 89-year-old gentleman returns to the office today for bilateral shoulder pain. He last saw me in October of 2023 for bilateral shoulder injections which were quite helpful. He states the pain has been present for a few months but was unable to get in for an appointment. He continues to have limitations with reaching overhead. 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 Mother No problems noted. Social History Household Members: None Housing: House Are you a primary emergency care attendant to a significant other at home: No Do you presently have visiting nurse or other home services: No Alcohol intake: never Comment: counts correct Patient Tobacco Use Status: Former Tobacco user Tobacco use type: Cigarette e-Cigarette/Vaping Use: Former Use Second Hand Smoke Exposure: Yes Advance Directives Date on File: 11/14/22 service: Yes Current occupational status: retired Current occupation: rt handed Cognitive needs: Yes (cane) Hearing needs: No Vision needs: Yes (reading glasses) Review of Systems Const All systems reviewed & are unremarkable except as noted in HPI and below Physical Exam Vital Signs: BMI result Body Mass Index 22.7 Extrem Other: Bilateral shoulder: Normal to inspection. Tenderness over the bicipital groove and along the deltoid region of the shoulder. Forward flexion to 175, external rotation to 90, internal rotation to S1. 5/5 RTC strength. Negative Olson and cross body abduction. NVI. Office Procedures AMB Joint Injection/Aspiration Joint Injection/Aspiration Primary Site: right shoulder Secondary Site: left shoulder Prep: site was prepped using aseptic technique, ethochloride spray was applied and injection warnings given Injected: 40 mg of, with 3 mL of, 1% plain lidocaine, 0.25% bupivacaine, in the subcromial space and decadron Approach Used: posterolateral Procedure: The patient tolerated the procedure well and there was some relief with the local anesthesia Coding 09071 - Glenohumeral/Tronchanteric Bursa/Intraarticular Procedure code (CPT) selection complete Assessment & Plan Assessment & Plan (1) Tendonitis of left rotator cuff: Code(s): M75.82 - Other shoulder lesions, left shoulder Category: Medical (2) Tendonitis of both rotator cuffs: Code(s): M75.81 - Other shoulder lesions, right shoulder; M75.82 - Other shoulder lesions, left shoulder Category: Medical Plan We discussed options today, which include steroid injection. The patient did consent to move forward with the bilateral shoulder injection, which was tolerated well. I recommended rest, ice, and elevation and OTC anti- inflammatories as needed for discomfort. If symptoms persist or worsen over the next 6-8 weeks, patient will contact the office, otherwise follow-up as needed. ? Coding Level of Care Code Est Pt Level 3 (32588) Complex EM visit Add On G2211 Diagnoses Tendonitis of left rotator cuff M75.82 Tendonitis of both rotator cuffs M75.81; M75.82 CPT Codes Coding - Joint 7: 63837 - Glenohumeral/Tronchanteric Bursa/Intraarticular ([id number])
[2024-12-03 15:31] VITALS: BMI 22.7
== END 2024-12-03 15:46 | disposition home or self-care (01) ==
LOC: HO.HOS 14:59
PROVIDERS: PCP Internal Medicine; Visit Provider Physician Assistant
DX: M75.82 Other shoulder lesions, left shoulder (principal); M75.81 Other shoulder lesions, right shoulder
CPT/HCPCS: 20610; 99213

== ENCOUNTER → 2024-12-03 14:59 | Outpatient (BNVA) | payer MEDICARE, OTHER, SELFPAY | PROVIDERS: PCP Internal Medicine; Visit Provider Physician Assistant | DX: M75.82 Other shoulder lesions, left shoulder (principal); M75.81 Other shoulder lesions, right shoulder | CPT/HCPCS: 20610; 99212; J0665; J2003; J3301 ==

== ENCOUNTER 2024-12-17 12:11 | Outpatient (AMB) | payer MEDICARE, OTHER, SELFPAY ==
[2024-12-17 12:26] VITALS: BP 138/68; PULSE 85; BMI 24.0
--- NOTE | 2024-12-17 12:26 | MHC.OFFVIS ---
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 Instructions: Resume on 08/21/24. famotidine 20 mg PO TID finasteride 5 mg PO DAILY 90 days leflunomide 20 mg PO DAILY prednisone 5 mg PO HPI Comments Details: Matthew is here for follow up regarding atrial fibrillation. Overall, he feels good. No cardiac symptoms or other concerns. 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 Mother No problems noted. Social History Household Members: None Housing: House Are you a primary hearing care practitioner to a significant other at home: No Do you presently have visiting nurse or other home services: No Alcohol intake: never Comment: counts correct Patient Tobacco Use Status: Former Tobacco user Tobacco use type: Cigarette e-Cigarette/Vaping Use: Former Use Second Hand Smoke Exposure: Yes Advance Directives Date on File: 11/14/22 service: Yes Current occupational status: retired Current occupation: rt handed Cognitive needs: Yes (cane) Hearing needs: No Vision needs: Yes (reading glasses) Review of Systems Const Denies daytime sleepiness, Denies difficulty sleeping, Denies snoring, Denies stops breathing during sleep and Denies weakness Card Denies chest pain, Denies rapid heart rate, Denies irregular heart rhythm, Denies claudication, Denies leg edema, Denies lightheadedness, Denies palpitations, Denies dyspnea, Denies dyspnea on exertion, Denies orthopnea, Denies paroxysmal nocturnal dyspnea and Denies slow heart rate Resp Denies cough, Denies dyspnea, Denies dyspnea on exertion and Denies snoring GI Reports no additional complaints, Denies hematochezia, Denies change in stool character and Denies dyspepsia Musc Denies abnormal gait, Denies muscle weakness and Denies numbness Neuro Denies abnormal gait, Denies numbness and Denies weakness Endo Denies palpitations Physical Exam Vital Signs: Last Vital Signs Pulse 85 12/17/24 12:26 BP 138/68 12/17/24 12:26 BMI result Body Mass Index 24.0 Const General: comfortable and no acute distress Orientation/consciousness: patient oriented x3 HEENT Other: Unremarkable Head: Yes normal to inspection Neck Neck: Yes normal visual inspection Chest Chest palpation & inspection: normal inspection of the chest Resp Auscultation: clear to auscultation bilaterally Cardio Palpation: normal PMI Heart sounds: S1 normal heart sound present, S2 normal heart sound present, no gallops, no murmurs and no rubs GI Palpation (GI): Soft to palpation Back/Spine/Pelvis Other: unremarkable Skin General skin exam: no rashes or lesions noted Neuro General: patient oriented x3 Extrem Other: 1+ edema bilateral lower extremities. General: Yes normal to inspection Psych Mental Status: mental status grossly normal Assessment & Plan Assessment & Plan (1) Persistent atrial fibrillation: Code(s): I48.19 - Other persistent atrial fibrillation Category: Medical (2) Leg swelling: Code(s): M79.89 - Other specified soft tissue disorders Category: Medical Plan Holter in the past with atrial fibrillation/adequate rate control. In the echocardiogram, preserved LVEF, 60-65%; moderately dilated left atrium and mild aortic/mitral calcifications. He is not on any rate control medications unlikely has underlying conduction system disease. Remains on Eliquis without issues. With regard to leg swelling, suspect dependent edema. That is also stable. We will see him back in one year. In the interim, call with concerns. Coding Level of Care Code Est Pt Level 3 (37437) Diagnoses Persistent atrial fibrillation I48.19 Leg swelling M79.89
--- OUTSIDE RECORDS SUMMARY | 2024-12-17 17:05 | XMS_ITS | Patient Health Record ---
Author Organization [facility] Address [address] [place] [address] Care Team Providers Care Collection Team Lead Name Role Phone Luis Alberto (RETIRED) Suman PATEL Primary Care Provide r Unavailable Talha Dueñas, Sid Unavailable [phone] Allergies No Known Allergies Reason For Referral No Information Medications Medication SIG (Take, Route, Fr equency, Duration) Notes Start Date End Date Status Famotidine 20 MG TK 1 T PO BID Oral; Duration: 90 Active Eliquis 2.5 MG as directed [...] Problem Status W/U Status Risk Notes Problem Hypertension (92472220) Hypertension (I10) Active confirmed Problem Whitaker's esophagus (896407400) 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 Problem Polyp of colon (disorder) (82197458) Colon polyps (K63.5) Active confirmed Problem Benign neoplasm of colon (91956286) Adenomatous polyp of colon, unspecified part of colon (D12.6) Active confirmed Problem 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 [place] [address] [id number] GLENN WARE Self - patient is the [...] denoma requiring transanal surgical resection, Dr. Rosenberg [facility], 2012 Atrial fibrillation Surgical History Surgery Date(Month/Year) hemorrhoidectomy appendectomy tonsillectomy Transanal polypectomy
== END 2024-12-17 12:42 | disposition home or self-care (01) ==
LOC: HO.HCS 12:12
PROVIDERS: PCP Internal Medicine; Visit Provider Internal Medicine
DX: I48.19 Other persistent atrial fibrillation (principal); M79.89 Other specified soft tissue disorders
CPT/HCPCS: 99213

== ENCOUNTER → 2024-12-17 12:11 | Outpatient (BNVA) | payer MEDICARE, OTHER, SELFPAY | PROVIDERS: PCP Internal Medicine; Visit Provider Internal Medicine | DX: I48.19 Other persistent atrial fibrillation (principal); M79.89 Other specified soft tissue disorders | CPT/HCPCS: 99212 ==

== ENCOUNTER 2024-12-31 09:04 | Outpatient (AMB) | payer MEDICARE, OTHER, SELFPAY ==
--- NOTE | 2024-12-31 08:44 | A.OFFPC_ITS ---
Vital Signs 12/31/24 08:46 Height 5 ft 8 in Weight 156 lb BMI 23.7 BP 135/71 Blood Pressure Location Lt brachial Position Sitting Pulse 87 Pulse Source Pulse Oximeter Temp 97.9 F Temp Source Temporal Artery Scan Pulse Oximetry (%) 98 Oxygen Delivery Method Room Air Intake Visit Reasons: est. 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 Instructions: Resume on 08/21/24. famotidine 20 mg PO TID finasteride 5 mg PO DAILY 90 days leflunomide 20 mg PO DAILY prednisone 5 mg PO Tobacco use date assessed: 12/31/24 Fall risk assessment: No Falls in past year Last assessed Fall Risk: 12/31/24 Dental Screening Dental Screen Date: 12/31/24 Did you have a dental visit in the last 12 months?: No Did you have a dental problem in the last 6 months where you did not have access to dental care?: No HPI HPI Comments History of Present Illness Details The patient is an 89-year-old male presenting for a follow-up visit for management of chronic conditions. He reports feeling generally well, about 90-95%, but emotionally is feeling lost following the recent of his of 67 years. The patient has a history of atrial fibrillation and a blood clot, for which he takes Eliquis. He also has gastroesophageal reflux disease, described as an acidic stomach, managed with famotidine. He takes finasteride 5 mg for his prostate. For arthritis, he is prescribed leflunomide 20 mg and prednisone by his solar project coordination specialist, Dr. Ford, whom he has not seen in about a year. His surgical history is significant for a recent hernia repair and a past femur fracture, which was repaired with a 12-inch ivis and now causes him leg pain, particularly with weather changes. The patient lives alone, but his two daughters live nearby and provide support. He is independent, still drives day and nigh without issues, and stays active with activities like cutting his lawn, golfing, and general housework. Medical History: - Grief - History of a blood clot - Atrial fibrillation - Acid reflux - Benign Prostatic Hyperplasia - Arthritis - History of femur fracture Surgical History: - Hernia repair, recent - Femur fracture repair with ivis placeme nt Medications: - Famotidine for acid reflux - Eliquis for atrial fibrillation and hi story of blood clot - Finasteride 5 mg for prostate - Leflunomide 20 mg for arthritis - Prednisone for arthritis Diagnostic Results: - Vitals: Blood pressure is noted to be good at 120 systolic. - Labs: Previous blood work was noted to be good. Social History: - The patient is a , having recen tly lost his of 67 years. - He lives by himself. - He has a strong support system with tw o daughters, one of whom lives nearby. - Functional Status: He is independent, still drives at night, and feels fine doing so. 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 - He is learning to manage household res ponsibilities, such as paying bills, that his late previously handled. 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 Mother No problems noted. Social History Household Members: None Housing: House Are you a primary laboratory animal care veterinarian to a significant other at home: No Do you presently have visiting nurse or other home services: No Alcohol intake: never Comment: counts correct Patient Tobacco Use Status: Former Tobacco user Tobacco use type: Cigarette e-Cigarette/Vaping Use: Former Use Second Hand Smoke Exposure: Yes Advance Directives Date on File: 11/14/22 service: Yes Current occupational status: retired Current occupation: rt handed Cognitive needs: Yes (cane) Hearing needs: No Vision needs: Yes (reading glasses) Questionnaire PHQ-9 Over the last 2 weeks, how often have you been bothered by any of the following problems? 1. Little interest or pleasure in doing things: not at all 2. Feeling down, depressed, or hopeless: several days (sometimes he depressed because his ) 3. Trouble falling or staying asleep, or sleeping too much: not at all 4. Feeling tired or having little energy: not at all 5. Poor appetite or overeating: not at all 6. Feeling bad about yourself - or that you are a failure or have let yourself or your family down: not at all 7. Trouble concentrating on things, such as reading the newspaper or watching television: not at all 8. Moving or speaking so slowly that other people could have noticed. Or the opposite - being so fidgety or restless that you have been moving around a lot more than usual: not at all 9. Thoughts that you would be better off or of hurting yourself in some way: not at all Total score: 1 Source: Developed by Drs. Morgan Méndez, Iris Dye, Cl Huynh and colleagues, with an educational doris from [employer]. Thrive Questionnaire Date Thrive assessed: 12/31/24 I am a: Patient Within the past 12 months, did the food you bought not last and you didn't have the money to get more?: Never true Do you have trouble paying for medicines?: No Do you have trouble getting transportation to medical appointments?: No Do you have trouble paying your heating and electricity bill?: No Do you have trouble taking care of your child, family member or friend?: No Do you have trouble with day-to-day activities such as bathing, preparing meals, shopping, managing finances, etc.?: No Are you currently unemployed and looking for a job?: No Are you interested in more education?: No THRIVE Score: 0 AUDIT C Alcohol Use Questionnaire (AUDIT-C) 1. How often do you have a drink containing alcohol?: Never 3. How often do you have six or more drinks on one occasion?: Never Total Score: 0 FATMATA-7 AMB Questionnaire FATMATA-7 Date FATMATA - 7 assessed: 12/31/24 Feeling nervous, anxious, or on edge: 0 = Not at all Not being able to stop or control worryin = Not at all Worrying too much about different things: 0 = Not at all Trouble relaxin = Not at all Being so restless that it is hard to sit still: 0 = Not at all Becoming easily annoyed or irritable: 0 = Not at all Feeling afraid as if something awful might happen: 0 = Not at all Total FATMATA-7 score (0-4 normal; 5-9 mild; 10-14 moderate; 15-21 severe): 0 Source: Developed by Drs. Morgan Méndez, Iris Dye, Cl Huynh and colleagues, with an educational doris from [employer]. Review of Systems Narrative - Constitutional: Reports feeling good overall. - Psychiatric: Reports feeling lost and sad due to the recent passing of his . - General: Denies nausea, vomiting, chest pain, shortness of breath, and headaches. - Eyes: Denies seeing halos when driving at night. - Gastrointestinal: Reports an acidic stomach. - Musculoskeletal: Reports leg pain related to a prior femur fracture, which is exacerbated by weather changes. - Extremities: Denies swelling. All systems reviewed & are unremarkable except as reviewed in HPI and above Physical exam (Primary Care) Vital Signs: Last Vital Signs Temp 97.9 F 12/31/24 08:46 Pulse 87 12/31/24 08:46 BP 135/71 12/31/24 08:46 Pulse Ox 98 12/31/24 08:46 Oxygen Delivery Method Room Air 12/31/24 08:46 BMI result Body Mass Index 23.7 Tobacco/Smoking Status: Tobacco use Status Tobacco use date assessed 12/31/24 12/31/24 08:49 Patient Tobacco Use Status Former Tobacco user 12/31/24 08:46 Tobacco use type Cigarette 12/31/24 08:46 e-Cigarette/Vaping Use Former Use 12/31/24 08:46 PHQ-9: PHQ-9 Score PHQ-9: Total score 1 12/31/24 09:27 Thrive Assessment: Date of Thrive Assessment Date Thrive assessed 12/31/24 12/31/24 08:49 Narrative General: +Alert and oriented, Well nourished, No acute distress. Eye: Pupils are equal, round and reactive to light, Intact accommodation, Extraocular movements are intact, Normal conjunctiva, Vision unchanged. HENT: Normocephalic, Atraumatic, Tympanic membranes are clear, Normal hearing, Oral mucosa is moist, No pharyngeal erythema, Ear canals patent. Respiratory: Lungs CTA bilaterally, No wheeze, Respirations are non-labored. Cardiovascular: Regular rate, Regular rhythm, S1 auscultated, S2 auscultated, No murmur, Good pulses equal in all extremities, Normal peripheral perfusion, No edema. Gastrointestinal: Soft, Non-tender, Non-distended, Normal bowel sounds, No organomegaly. Musculoskeletal: Normal range of motion, Normal strength, No tenderness, No swelling, No deformity, Normal gait. Integumentary: Warm, Dry, [place], Intact. Neurologic: Alert, Oriented, Normal sensory, Normal motor function, No focal defects, Cranial Nerves II-XII are grossly intact, Normal deep tendon reflexes. Psychiatric: Cooperative, Appropriate mood & affect, Normal judgment, Expresses feelings of loss and sadness due to the recent passing of spouse. Coding Level of Care Code Est Pt Level 4 (11799) Complex EM visit Add On G2211 Diagnoses Persistent atrial fibrillation I48.19 Grief F43.21 Rheumatoid arthritis, involving unspecified site, unspecified whether rheumatoid factor present M06.9 Rheumatoid arthritis location: unspecified site Rheumatoid factor presence: unspecified presence Gastroesophageal reflux disease without esophagitis K21.9 Esophagitis presence: without esophagitis Malignant neoplasm of prostate C61 Assessment & Plan Assessment & Plan (1) Persistent atrial fibrillation: Comment: - Currently stable on Eliquis, advised on ambulating carefully given he lives alone - Not on any rate control or rhytm control medication Code(s): I48.19 - Other persistent atrial fibrillation Category: Medical (2) Grief: Code(s): F43.21 - Adjustment disorder with depressed mood Plan: - The patient is experiencing grief from the recent loss of his . - He has been offered support and knows he can reach out to the office if needed. (3) Rheumatoid arthritis: Comment: - The patient's arthritis is managed by his solar project coordination specialist, Dr. Ford, with leflunomide and prednisone. - He has not had a follow-up in approximately one year and is advised to contact his specialist to schedule an appointment. Code(s): M06.9 - Rheumatoid arthritis, unspecified Category: Medical Qualifiers: Rheumatoid arthritis location: unspecified site Rheumatoid factor presence: unspecified presence Qualified Code(s): M06.9 - Rheumatoid arthritis, unspecified (4) GERD (gastroesophageal reflux disease): Comment: - Stable on famoitidine Code(s): K21.9 - Gastro-esophageal reflux disease without esophagitis Category: Medical Qualifiers: Esophagitis presence: without esophagitis Qualified Code(s): K21.9 - Gastro-esophageal reflux disease without esophagitis (5) Malignant neoplasm of prostate: Comment: sees -PSA monitored Code(s): C61 - Malignant neoplasm of prostate Category: Medical Plan: Health Maintenance: - The patient is scheduled for a follow-up in 6 months for his yearly physical. - Lab work has been ordered to be completed one week before the next appointment. - The patient was advised to make an appointment with his solar project coordination specialist, whom he has not seen in about a year. Patient was informed and verbally consented to the use of an ambient scribe for clinic note documentation during this visit. Plan I informed the patient that his overall health appears good, and his vital signs, including his blood pressure, are stable. We reviewed his current medications, and I confirmed that we would not be making any changes at this time. I advised him to touch base with his solar project coordination specialist, Dr. Ford, as it has been about a year since their last appointment. We will have him return in six months for his yearly physical. I have placed orders for blood work to be done the week before his next visit and explained that no paperwork is needed for this. I also reassured him that our office is available for any needs that may arise. I offered my condolences for the loss of his . Orders: Orders Hemoglobin A1c 6 Months Z00.00 - Encounter for general adult medical examination without abnormal findings TSH reflex Free T4 6 Months Z00.00 - Encounter for general adult medical examination without abnormal findings Complete Blood Count Auto Diff 6 Months Z00.00 - Encounter for general adult medical examination without abnormal findings Comprehensive Met. Panel 6 Months Z00.00 - Encounter for general adult medical examination without abnormal findings Lipid Panel 6 Months Z00.00 - Encounter for general adult medical examination without abnormal findings Vitamin D 25-OH Total 6 Months Z00.00 - Encounter for general adult medical examination without abnormal findings Medications: Refilled famotidine 20 mg PO TID 90 tabs 12RF Patient Instructions: - Continue taking all of your current medications as prescribed. - We will send a new prescription for your famotidine. - Please contact your arthritis doctor (solar project coordination specialist), Dr. Ford, to schedule a follow-up appointment, as it has been about a year since you last saw him. - Your next appointment with our office will be in six months (around June) for your yearly physical. - Please have your blood work done one week before your next appointment. You do not need to bring any paperwork with you to the lab. - Please contact our office if you need any help or if any issues arise before your next visit.
[2024-12-31 08:46] VITALS: BP 135/71; PULSE 87; TEMP 36.6; O2SAT 98; BMI 23.7
--- OUTSIDE RECORDS SUMMARY | 2024-12-31 09:46 | XMS_ITS | Patient Health Record ---
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 Problem Polyp of colon (disorder) (26276792) Colon polyps (K63.5) Active confirmed Problem Benign neoplasm of colon (89326541) Adenomatous polyp of colon, unspecified part of colon (D12.6) Active confirmed Problem Benign neoplasm of rectum and anal canal (404063667) Rectal adenoma (D12.8) Active confirmed Plan Of Treatment Future Test Test Name Order Date COLONOSCOPY 02/07/2013 UPPER GI ENDOSCOPY 06/10/2014 COLONOSCOPY 06/10/2014 UPPER GI ENDOSCOPY 09/06/2017 COLONOSCOPY 09/06/2017 Insurance Providers Payer Name Payer Address Payer Phone Subscriber Number Group Number Insured Name Patient Relationship to Insured Coverage Start Date Coverage End Date MEDICARE OF [employer] [address] [place] [id number] JEANIE GLENN Self - patient is the insured [employer] [address] [place] [address] [id number] GLENN WARE Self - patient is the [...] denoma requiring transanal surgical resection, Dr. Rosenberg [facility], 2012 Atrial fibrillation Surgical History Surgery Date(Month/Year) hemorrhoidectomy appendectomy tonsillectomy Transanal polypectomy
== END 2024-12-31 09:45 | disposition home or self-care (01) ==
LOC: HO.HMCHD 09:05
PROVIDERS: PCP Internal Medicine; Visit Provider Student in an Organized Health Care Education/Training Program
DX: I48.19 Other persistent atrial fibrillation (principal); F43.21 Adjustment disorder with depressed mood; M06.9 Rheumatoid arthritis, unspecified; K21.9 Gastro-esophageal reflux disease without esophagitis; C61 Malignant neoplasm of prostate

== ENCOUNTER → 2024-12-31 09:04 | Outpatient (BNVA) | payer MEDICARE, OTHER, SELFPAY | PROVIDERS: PCP Internal Medicine; Visit Provider Student in an Organized Health Care Education/Training Program | DX: I48.19 Other persistent atrial fibrillation (principal); F43.21 Adjustment disorder with depressed mood; M06.9 Rheumatoid arthritis, unspecified; K21.9 Gastro-esophageal reflux disease without esophagitis; C61 Malignant neoplasm of prostate; Z79.01 Long term (current) use of anticoagulants; Z79.899 Other long term (current) drug therapy; Z13.30 Encounter for screening examination for mental health and behavioral disorders, unspecified; Z13.39 Encounter for screening examination for other mental health and behavioral disorders | CPT/HCPCS: 96127; 99212 ==